=== PATIENT | female | born 1980 | race Caucasian/White ===

== ENCOUNTER 2019-07-16 08:05 | Outpatient (CLI) | payer BC, SELFPAY ==
--- NOTE | ~2019-07-16 | MM_ITS ---
EXAMINATION: MM screening estrella BI w concepcion HISTORY: Screening mammogram TECHNIQUE: Craniocaudal and mediolateral oblique 3-D tomosynthesis images were obtained and synthetic 2-D images were generated. CAD analysis was submitted and interpreted. COMPARISON: 02/13/2015 bilateral digital screening mammogram and limited right axillary ultrasound BREAST PARENCHYMAL COMPOSITION: There are scattered areas of fibroglandular density. FINDINGS: There is no evidence of suspicious mass, calcification, or architectural distortion to sugg est malignancy in either breast. There has been no suspicious interval change. IMPRESSION: 1. No mammographic evidence of malignancy. 2. Recommend routine screening mammography in one year. BI-RADS Category 1: Negative Reviewed, dictated and finalized at location A. RS AND CONTROLS TESTER
== END 2019-07-16 08:06 | disposition home or self-care (01) ==
LOC: CHSIMG 08:07
PROVIDERS: PCP Internal Medicine; Visit Provider Obstetrics & Gynecology
DX: Z12.31 Encounter for screening mammogram for malignant neoplasm of breast (principal)
CPT/HCPCS: 77063; 77067

== ENCOUNTER 2019-08-10 07:08 | Outpatient (CLI) | payer BC, SELFPAY ==
[2019-08-10 07:26] LABS: Basophils Absolute Auto 0.02 K/mm3 (0.00-0.10); Basophils Percent Auto 0.4 % (0.0-1.0); Eosinophils Absolute Auto 0.16 K/mm3 (0.02-0.50); Eosinophils Percent Auto 3.3 % (1.0-6.0); Hematocrit 43.7 % (35.0-49.0); Hemoglobin 14.9 g/dL (12.0-15.0); Immature Granulocyte Absolute 0.01 K/mm3 (0.00-0.00); Immature Granulocyte Percent A 0.2 % (0.0-0.0); Lymphocytes Percent Auto 20.3 % (18.0-42.0); Mean Corpuscular HGB Conc 34.1 g/dL (32.0-36.0); Mean Corpuscular Hemoglobin 32.4 pg (27.0-31.0); Mean Platelet Volume 9.3 fl (9.2-11.8); Monocytes Absolute Auto 0.51 K/mm3 (0.10-0.90); Monocytes Percent Auto 10.4 % (2.0-11.0); Neutrophils Absolute Auto 3.2 K/mm3 (1.7-7.2); Neutrophils Percent Auto 65.4 % (50.0-70.0); Platelet Count Result 274 K/mm3 (150-420); Red Cell Distribution Width 12.4 % (11.6-14.4); White Blood Count 4.9 K/mm3 (4.8-10.8)
[2019-08-10 08:33] LABS: Alanine Aminotransferase 27 U/L (14-59); Albumin Level 3.7 g/dL (3.4-5.0); Alkaline Phosphatase 60 U/L (46-116); Anion Gap 11.6 mmol/L (7-16); Aspartate Amino Transferase 15 U/L (15-37); Bilirubin,Total 0.4 mg/dL (0.00-1.00); Blood Urea Nitrogen 15 mg/dL (7-18); Calcium 8.8 mg/dL (8.5-10.1); Carbon Dioxide 26 mmol/L (21-32); Chloride 105 mmol/L (98-108); Cholesterol 188 mg/dL (0-200); Estimated Glomerular Filt Rate > 60; Glucose 102 mg/dL (70-99); HDL Direct 56 mg/dL (40-60); LDL Cholesterol Calculated 112 mg/dL (<130); Osmolality Calculated 286 mOsm/kg (285-295); Potassium 4.6 mmol/L (3.5-5.1); Sodium 138 mmol/L (136-145); Thyroid Stimulating Hormone 2.86 uIU/mL (0.36-3.74); Total Protein 7.2 g/dL (6.4-8.2); Triglycerides 99 mg/dL (0-150)
[2019-08-10 08:43] LABS: Folic Acid > 20.0 ng/mL (8.6->20); Vitamin B12 > 2000 pg/mL (193-986)
== END 2019-08-10 07:09 | disposition home or self-care (01) ==
LOC: CHSLAB 07:10
PROVIDERS: PCP Internal Medicine; Visit Provider Internal Medicine
DX: Z00.00 Encounter for general adult medical examination without abnormal findings (principal); R53.83 Other fatigue
CPT/HCPCS: 36415; 80053; 80061; 82607; 82746; 84443; 85025

== ENCOUNTER 2019-11-12 09:43 | Emergency (ER) | payer BC, SELFPAY ==
[2019-11-12 10:07] VITALS: BP 125/70; PULSE 101; RESP 18; TEMP 36.9; O2SAT 96
--- NOTE | 2019-11-12 11:09 | PC.NURSE ---
1100 erp in with patient, report to marlyn dodson
--- NOTE | 2019-11-12 11:15 | ED.NAVMDI ---
HPI - Nausea/Vomiting/Diarrhea General Chief complaint: Abdominal Pain Stated complaint: Diarrhea last couple days Vomiting bloating pains Source: patient Mode of arrival: ambulatory Limitations: no limitations History of Present Illness HPI Narrative: this 29-year-old with GERD developed diarrhea 6 days ago up until yesterday. It has improved today, 2 episodes so far. Five days ago she developed chills; 4 days ago she had a fever got as high as 102.6 ;2 and 3 days ago she had body aches which has resolved. Two days ago she developed epigastric bloating and abdominal pain. Yesterday it was rated 8/10, today it is 3/10. She lives with her brother, her boyfriend visits frequently. They have both been without symptoms. She spoke to her PCP Dr. Aguilar 4 days ago. She spoke to him again today he recommended obtaining a stool culture and be evaluated in the ED. She has never had the symptoms before. She had a COVID test done yesterday which is pending. She denies a sore throat cough shortness of breath Related Data Allergies Allergy/AdvReac Type Severity Reaction Status Date / Time hydrocodone Allergy Unknown Hives Verified 11/12/19 11:24 Review of Systems Constitutional: Constitutional: Reports no additional constitutional complaints Cardiovascular: Cardiovascular: Denies chest pain Respiratory: Respiratory: Denies dyspnea Gastrointestinal: Gastrointestinal: Reports no additional gastrointestinal complaints Genitourinary: Genitourinary: Reports no additional female genitourinary complaints [facility] Past Medical History Medical History (Updated 11/13/19 @ 09:00 by Ivan Royal MD) GERD (gastroesophageal reflux disease) Surgical History Surgical History (Updated 11/13/19 @ 09:00 by Ivan Royal MD) H/O: hysterectomy Family History Family History (Updated 09/09/16 @ 23:56 by DOCTOR UNKNOWN) Mother Patient's mother is in good health Father Family history of malignant neoplasm, Onset Age: 46 Patient's father is Grandparent Family history of malignant neoplasm of breast Social History Social History Smoking status: Former smoker Second hand tobacco smoke exposure: No Alcohol intake: current Exam Const: Nutritional Appearance: obese Orientation/consciousness: patient oriented x3 HENMT: Mouth: Yes Normal oral and palatal mucosa present Resp: Auscultation: clear to auscultation bilaterally Cardio: Rate: regular rate Rhythm: regular rhythm GI: GI Palp: Yes Soft to palpation, Yes Tenderness to palpation present (GI) (epigastric area), No Guarding due to palpation present (GI) and No Rigid due to palpation : General: Yes no CVA tenderness Skin: Rashes: no rashes Course Course Emergency Course: no change in patient's symptoms. Continues to have low-grade epigastric discomfort with palpation; unable to defecate in the emergency department. Patient will return with stool specimen. Imodium for diarrhea acetaminophen for pain. I explained her low potassium secondary to her diarrhea. She was given a script for KCL 20 mg b.i.d. for 7 days. Vital Signs Vital signs: Vital Signs Temperature 36.9 C 11/12/19 10:07 Pulse Rate 101 H 11/12/19 10:07 Respiratory Rate 18 11/12/19 10:07 Blood Pressure 125/70 11/12/19 10:07 Pulse Oximetry 96 11/12/19 10:07 Temperature 36.9 C 11/12/19 10:07 Pulse Rate 101 H 11/12/19 10:07 Respiratory Rate 16 11/12/19 12:57 Blood Pressure 125/70 11/12/19 10:07 Pulse Oximetry 96 11/12/19 10:07 MDM - Nausea/Vomiting/Diarrhea Differential Diagnosis Differential diagnosis: Likely food poisoning, gastroenteritis, clostridium difficile infection and other ( Infectious diarrhea, enteritis, pancreatitis, peptic ulcer disease,) Lab Data Attestation: I reviewed the patient's lab results. Result diagrams: 11/12/19 11:21 11/12/19 11:21 Labs: Lab Results 11/12/19
[2019-11-12 11:27] LABS: Hematocrit 39.7 % (35.0-49.0); Hemoglobin 13.6 g/dL (12.0-15.0); Mean Corpuscular HGB Conc 34.3 g/dL (32.0-36.0); Mean Corpuscular Hemoglobin 32.2 pg (27.0-31.0); Mean Corpuscular Volume 94.1 fL (78.0-102.0); Platelet Count Result 259 K/mm3 (150-420); Red Blood Count 4.22 M/mm3 (4.20-5.40); Red Cell Distribution Width 12.4 % (11.6-14.4); White Blood Count 3.8 K/mm3 (4.8-10.8)
[2019-11-12 11:43] LABS: Alanine Aminotransferase 40 U/L (14-59); Albumin Level 2.7 g/dL (3.4-5.0); Alkaline Phosphatase 68 U/L (46-116); Anion Gap 11.1 mmol/L (7-16); Aspartate Amino Transferase 19 U/L (15-37); Blood Urea Nitrogen 11 mg/dL (7-18); Calcium 8.1 mg/dL (8.5-10.1); Carbon Dioxide 28 mmol/L (21-32); Chloride 103 mmol/L (98-108); Estimated CRCL calculation 130 ml/min; Estimated Glomerular Filt Rate > 60; Glucose 119 mg/dL (70-99); Lipase 80 U/L (73-393); Osmolality Calculated 288 mOsm/kg (285-295); Potassium 3.1 mmol/L (3.5-5.1); Sodium 139 mmol/L (136-145); Total Protein 6.3 g/dL (6.4-8.2)
[2019-11-12 11:54] LABS: Bilirubin,Total 0.1 mg/dL (0.00-1.00)
[2019-11-12 12:57] VITALS: RESP 16
[2019-11-12 13:59] LABS: Occult Blood Negative (Negative)
== END 2019-11-12 12:59 | disposition home or self-care (01) ==
PROVIDERS: Emergency Provider Family Medicine; PCP Internal Medicine
DX: R19.7 Diarrhea, unspecified (principal); R10.13 Epigastric pain
CPT/HCPCS: 36415; 80053; 83690; 85027; 87324; 89055; 99283

== ENCOUNTER 2019-12-06 08:50 | Outpatient (CLI) | payer BC, SELFPAY ==
[2019-12-06 10:06] LABS: Alanine Aminotransferase 38 U/L (14-59); Albumin Level 3.7 g/dL (3.4-5.0); Alkaline Phosphatase 68 U/L (46-116); Anion Gap 13.4 mmol/L (7-16); Aspartate Amino Transferase 17 U/L (15-37); Bilirubin,Total 0.3 mg/dL (0.00-1.00); Blood Urea Nitrogen 19 mg/dL (7-18); Calcium 8.8 mg/dL (8.5-10.1); Carbon Dioxide 25 mmol/L (21-32); Chloride 105 mmol/L (98-108); Estimated Glomerular Filt Rate > 60; Glucose 99 mg/dL (70-99); Osmolality Calculated 290 mOsm/kg (285-295); Potassium 4.4 mmol/L (3.5-5.1); Sodium 139 mmol/L (136-145); Total Protein 7.1 g/dL (6.4-8.2)
== END 2019-12-06 08:51 | disposition home or self-care (01) ==
LOC: CHSLAB 08:51
PROVIDERS: PCP Internal Medicine; Visit Provider Internal Medicine
DX: E87.6 Hypokalemia (principal)
CPT/HCPCS: 36415; 80053

== ENCOUNTER 2020-06-19 15:38 | Outpatient (CLI) | payer BC, SELFPAY ==
[2020-06-20 18:46] LABS: SARS-CoV-2 RNA PCR Positive
== END 2020-06-19 15:39 | disposition home or self-care (01) ==
LOC: CHSLAB 15:40
PROVIDERS: PCP Internal Medicine; Visit Provider Internal Medicine
DX: U07.1 COVID-19 (principal)
CPT/HCPCS: C9803; U0003; U0005

== ENCOUNTER 2020-06-28 13:25 | Emergency (ER) | payer BC, SELFPAY ==
--- NOTE | ~2020-06-28 | CT_ITS ---
EXAMINATION: CTA chest PE protocol EXAM DATE: 06/28/2020 15:52 INDICATION: short of breath, recent COVID shortness of breath. TECHNIQUE: Spiral CTA of the chest (pulmonary arteries) was performed with 100 cc Omnipaque 350 intr avenous contrast injection. Images were acquired during the pulmonary arterial phase. Coronal maxi mum intensity projection 3D-reconstructions were created by the technologist on dedicated workstation . Axial, coronal and sagittal reformatted images were reviewed. The dose-length product (DLP) for t his examination was 796.43 mGy-cm. The exposure was tailored according to patient size (auto mA exp osure control), and iterative reconstruction (ASIR) was used as additional dose reduction technique. There is no prior study for comparison. FINDINGS: Pulmonary arteries are well opacified and without intraluminal filling defects. No thora cic aortic dissection. Moderate amount of bilateral ill-defined groundglass opacities with some post erior dependent confluence, appearance is consistent with COVID pneumonia. Trace pleural effusions. Tracheobronchial tree is patent. There is no mediastinal, hilar or axillary lymphadenopathy. The re is no pneumothorax. Heart normal in size. No evidence of coronary arterial calcification. Upp er abdomen is unremarkable. There is thoracic spondylosis without osteoblastic or osteolytic lesion s identified. IMPRESSION: Moderate amount of amount of airspace disease consistent with COVID pneumonia. Reviewed, dictated and finalized at location A. D GEOGRAPHY TEACHER
--- NOTE | ~2020-06-28 | XR_ITS ---
EXAMINATION: XR chest 2V EXAM DATE: 06/28/2020 14:52 INDICATION: Cough, short of breath. Post COVID 10 days ago. TECHNIQUE: Frontal and lateral projections of the chest obtained and reviewed. Comparison is made to prior examination from 06/06/2017. FINDINGS: Small to moderate amount of patchy ill-defined bilateral opacities, probably COVID pneumon ia correlating with history provided. No pneumothorax or pleural effusion. Cardiomediastinal silhouet te is normal. There are no osseous abnormalities identified. IMPRESSION: Small to moderate bilateral ill-defined COVID pneumonia. Reviewed, dictated and finalized at location A. CTOR BLOOD BANK
--- NOTE | 2020-06-28 14:06 | ED.SOB ---
HPI - SOB/Dyspnea General Chief Complaint: Upper Respiratory Infection Stated Complaint: sob weak Time Seen by Provider: 06/28/20 14:10 Source: patient Mode of arrival: ambulatory Limitations: no limitations History of Present Illness HPI Narrative: 40-year-old woman comes in today complaining of shortness of breath, fever, body aches, headache, fatigue, and nausea for the last 3-4 days. Patient states that she was diagnosed with COVID-19 on June 19. patient states she has had no vomiting, diarrhea, chest pain, or wheezing. She states that her cough is productive of clear sputum and denies hemoptysis. She denies history of cardiac or lung disease. She states that she is currently being treated for sinus infection in that frequently, after having had a sinus infection, she develops pneumonia. MD elicited complaint: shortness of breath and cough Pertinent past history: pneumonia Onset (ago): day(s) (3-4) Context: recent illness Timing: constant Severity: moderate Exacerbating factors: exertion Relieving factors: nothing Known history of: recurrent pneumonia and other ( COVID-19) Associated symptoms: chest pain, fever, cough and sputum production Treatment prior to arrival: none Related Data Home oxygen amount: none Allergies Allergy/AdvReac Type Severity Reaction Status Date / Time hydrocodone Allergy Unknown Hives Verified 06/19/20 13:12 Review of Systems Constitutional: Constitutional: Denies chills, Reports fatigue, Reports fever(s) and Reports weakness Eyes: Eyes: Denies change in vision and Denies photophobia ENT: Denies dysphagia, Reports nasal congestion and Denies sore throat Cardiovascular: Cardiovascular: Denies chest pain and Denies radiating jaw, neck or arm pain Respiratory: Respiratory: Reports chest congestion, Reports cough, Reports dyspnea and Denies wheezing Gastrointestinal: Gastrointestinal: Denies abdominal pain, Denies diarrhea, Reports nausea and Denies vomiting Genitourinary: Genitourinary: Denies nocturia and Denies dysuria Musculoskeletal: Musculoskeletal: Denies arthralgias and Denies joint swelling Integumentary/Breasts: Skin/Breast: Denies pruritus, Denies erythema and Denies rash Neurologic: Denies vertigo, Denies dizziness and Denies syncope Hematologic/Lymphatic: Hematologic/Lymphatic: Denies easy bleeding and Denies easy bruising Allergic/Immunologic: Allergic/Immunologic: Denies lip swelling and Denies throat swelling PMF Past Medical History Medical History Deviated septum Fibroids Foot fracture, left GERD (gastroesophageal reflux disease) Surgical History Surgical History H/O nasal septoplasty H/O: hysterectomy History of arthroscopy of both knees History of History of laparoscopy History of nasal surgery History of tonsillectomy Family History Family History Mother Patient's mother is in good health Father Family history of malignant neoplasm, Onset Age: 46 Patient's father is Grandparent Family history of malignant neoplasm of breast Social History Social History Smoking status: Former smoker Second hand tobacco smoke exposure: No Alcohol intake: current Exam Const: General: alert Nutritional Appearance: obese Orientation/consciousness: patient oriented x3 Other: mild acute distress. HENMT: Head: normal to inspection Ears: external ears normal, TM's normal bilaterally and EAC's normal General nose exam: Normal external nose present Throat: posterior oropharynx normal and uvula midline Eyes: Conjunctivae: conjunctivae normal Pupils: Equal, round and reactive pupils present EOM: EOMs intact bilaterally Resp: Effort & Inspection: normal respiratory effort and not labored Auscultati
[2020-06-28 14:10] VITALS: BP 119/82; PULSE 119; RESP 20; TEMP 37.2; O2SAT 94
--- NOTE | 2020-06-28 14:16 | ECG_ITS ---
Measurements Intervals [place] Rate: 109 P: 12 NC: 141 QRS: 69 QRSD: 91 T: 34 QT: 316 QTc: 426 Interpretive Statements SINUS TACHYCARDIA BASELINE WANDER- V1-V6 ABNORMAL ECG Electronically Signed On 06-29-2020 7:19:46 GUEST EXPERIENCE MANAGER by Brigido Harrison D.O.
[2020-06-28] MEDS: ALBUTEROL SULFATE NEB 2.5 MG/3 ML INH INHALATION (14:23)
[2020-06-28] MEDS: SODIUM CHLORIDE 0.9% IV 1,000 ML 999 ML IV CONT ×2 (14:30→15:53)
[2020-06-28 14:47] LABS: Hematocrit 44.4 % (35.0-49.0); Hemoglobin 14.7 g/dL (12.0-15.0); Mean Corpuscular HGB Conc 33.1 g/dL (32.0-36.0); Mean Corpuscular Hemoglobin 31.5 pg (27.0-31.0); Mean Corpuscular Volume 95.3 fL (78.0-102.0); Mean Platelet Volume 9.3 fl (9.2-11.8); Platelet Count Result 193 K/mm3 (150-420); Red Blood Count 4.66 M/mm3 (4.20-5.40); White Blood Count 3.5 K/mm3 (4.8-10.8)
[2020-06-28 15:03] LABS: INR 0.9; Prothrombin Time 10.5 Seconds (9.50-12.10)
[2020-06-28 15:04] LABS: Alanine Aminotransferase 45 U/L (14-59); Albumin Level 2.8 g/dL (3.4-5.0); Alkaline Phosphatase 53 U/L (46-116); Anion Gap 8 mmol/L (8-16); Aspartate Amino Transferase 28 U/L (15-37); Bilirubin,Total 0.3 mg/dL (0.00-1.00); Blood Urea Nitrogen 15 mg/dL (7-18); Calcium 8.1 mg/dL (8.5-10.1); Carbon Dioxide 29 mmol/L (21-32); Chloride 103 mmol/L (98-108); Estimated Glomerular Filt Rate > 60; Glucose 102 mg/dL (70-99); Osmolality Calculated 290 mOsm/kg (285-295); Potassium 3.5 mmol/L (3.5-5.1); Sodium 140 mmol/L (136-145); Total Protein 6.9 g/dL (6.4-8.2); Troponin I 6.7 ng/L (0.00-60.4)
[2020-06-28 15:06] LABS: Influenza Control Valid (Valid); Partial Thromboplastin Time 31.2 SEC (23.90-30.70)
[2020-06-28 15:07] LABS: D Dimer 0.66 mg/L (0.19-0.50); Neutrophils Percent Manual 76 % (46-73); Total Cells Counted 100
[2020-06-28 15:08] LABS: Band Neutrophils Percent 0 % (0-6); Eosinophils Absolute Manual 0.07 K/mm3 (0.02-0.5); Eosinophils Percent Manual 2 % (1-6); Lymphocytes Absolute Manual 0.63 K/mm3 (1.1-4.5); Lymphocytes Percent Manual 18 % (18-44); Monocytes Absolute Manual 0.14 K/mm3 (0.1-0.90); Monocytes Percent Manual 4 % (3-9); Neutrophils Absolute Manual 2.66 K/mm3 (1.7-7.2); Platelet Estimate Adequate (Adequate)
[2020-06-28 15:16] LABS: BNP < 5.0 pg/mL (0-100)
[2020-06-28 15:33] VITALS: BP 110/69; PULSE 105; O2SAT 94
[2020-06-28] MEDS: levoFLOXacin TAB 500 MG, levoFLOXacin TAB 250 MG 750 MG PO (16:32)
[2020-06-28 16:36] VITALS: PULSE 103; O2SAT 97
== END 2020-06-28 16:40 | disposition home or self-care (01) ==
PROVIDERS: Emergency Provider Emergency Medicine; PCP Internal Medicine
DX: J18.9 Pneumonia, unspecified organism (principal); Z87.891 Personal history of nicotine dependence
CPT/HCPCS: 36415; 71046; 71275; 80053; 83880; 84484; 85025; 85380; 85610; 85730; 87040; 87804; 93005; 96360; 96361; 99284; A9270; J7030; Q9967

== ENCOUNTER 2020-07-06 10:43 | Outpatient (CLI) | payer BC, SELFPAY ==
--- NOTE | ~2020-07-06 | XR_ITS ---
XR chest 2V DATE: 07/06/2020 11:21 INDICATION: Shortness of breath, chest heaviness. Positive Covid. TECHNIQUE: PA and lateral views COMPARISON: 06/24/2020 2 view chest FINDINGS: There are patchy infiltrates in the mid and lower lung zones, mildly increased since 021. Normal heart size. No pleural effusion or pneumothorax. IMPRESSION: Mildly increased patchy bilateral pulmonary infiltrates since 06/24/2020 Reviewed, dictated and finalized at location A. ESS INSTRUCTOR IMPRESSION: Mildly increased patchy bilateral pulmonary infiltrates since 2020
== END 2020-07-06 10:44 | disposition home or self-care (01) ==
PROVIDERS: PCP Internal Medicine; Visit Provider Internal Medicine
DX: B94.8 Sequelae of other specified infectious and parasitic diseases (principal)
CPT/HCPCS: 71046

== ENCOUNTER → 2021-01-30 00:52 | Outpatient (CLI) | payer BC, SELFPAY ==
[2021-01-30 22:45] LABS: SARS-CoV-2 RNA PCR Negative
== END ==
PROVIDERS: PCP Internal Medicine; Visit Provider Internal Medicine Gastroenterology
DX: Z01.812 Encounter for preprocedural laboratory examination (principal); Z20.822 Contact with and (suspected) exposure to COVID-19
CPT/HCPCS: C9803; U0003; U0005

== ENCOUNTER 2021-02-02 07:52 | Outpatient (CLI) | payer BC, SELFPAY ==
--- NOTE | ~2021-02-02 | MM_ITS ---
EXAMINATION: MM screening estrella BI w concepcion HISTORY: Screening TECHNIQUE: Craniocaudal and mediolateral oblique 3-D tomosynthesis images were obtained and synthetic 2-D images were generated. CAD analysis was submitted and interpreted. COMPARISON: Comparison to multiple prior studies sequentially, with oldest reviewed study dated 02/13. BREAST PARENCHYMAL COMPOSITION: There are scattered areas of fibroglandular density. FINDINGS: There is no evidence of suspicious mass, calcification, or architectural distortion to sugg est malignancy in either breast. There has been no suspicious interval change. IMPRESSION: 1. No mammographic evidence of malignancy. 2. Recommend routine screening mammography in one year. BI-RADS Category 1: Negative Reviewed, dictated and finalized at location A.
== END 2021-02-02 07:53 | disposition home or self-care (01) ==
LOC: CHSIMG 07:54
PROVIDERS: PCP Internal Medicine; Visit Provider Obstetrics & Gynecology
DX: Z12.31 Encounter for screening mammogram for malignant neoplasm of breast (principal)
CPT/HCPCS: 77063; 77067

== ENCOUNTER 2021-02-03 02:33 | Day surgery (SDC) | payer BC, SELFPAY ==
[2021-01-20 14:59] VITALS: BMI 46.9
[2021-02-03 08:10] VITALS: BP 136/98; PULSE 86; RESP 18; TEMP 36.1; O2SAT 97; BMI 46.5
[2021-02-03] MEDS: LACTATED RINGERS 1,000 ML 150 ML IV CONT (08:38)
--- NOTE | 2021-02-03 08:41 | WPDANESEPPF ---
Anes - Initial Pre Proc Eval Procedure: Operation Date: 02/03/21 09:00 Proposed Procedures p Screening Colonoscopy - Phil Joseph MD Date/Time: 02/03/21 08:41 Surgeon: Phil Joseph MD Pre Op Diagnosis: neoplasm screening Patient Data Age: 40 Gender: F Height: 1.7 m Weight: 134.8 kg Last Vital Signs Temp 97.0 F L 02/03/21 08:10 Pulse 86 02/03/21 08:10 Resp 18 02/03/21 08:10 BP 136/98 H 02/03/21 08:10 Pulse Ox 97 02/03/21 08:10 Allergies Allergy/AdvReac Type Severity Reaction Status Date / Time No Known Allergies Allergy Verified 02/03/21 08:18 Home Medications Medication Instructions Recorded Confirmed Type meclizine 25 mg tablet 25 mg PO TID PRN #20 tablet 06/26/20 01/20/21 Rx methylphenidate HCl 20 mg tablet 20 mg PO DAILY #30 tablet 08/07/20 01/20/21 Rx naproxen 500 mg tablet 500 mg PO BID PRN #180 tablet 09/02/20 01/20/21 Rx montelukast 10 mg tablet 10 mg PO QHS #30 tablet 11/05/20 01/20/21 Rx pantoprazole 40 mg tablet,delayed 40 mg PO QAM #90 tablet 11/05/20 01/20/21 Rx release sodium,potassium,mag sulfates See Rx Instructions .ROUTE 01/11/21 Rx [Suprep Bowel Prep Kit] .COMPLEX #1 ml Mucinex DM 1 tab-cap BYMOUTH DAILY PRN 01/20/21 02/03/21 History dextroamphetamine-amphetamine 25 mg PO DAILY 01/20/21 01/20/21 History [Adderall XR] tolterodine 4 mg PO DAILY 01/20/21 01/20/21 History albuterol sulfate 90 mcg/actuation 2 inh INHALATION Q4-6H #8.5 gm 02/01/21 02/03/21 Rx aerosol inhaler Patient hx anesthesia problems: none Family hx anesthesia problems: none PMFSH Past Medical History Medical History Deviated septum Fibroids Foot fracture, left GERD (gastroesophageal reflux disease) Surgical History Surgical History H/O nasal septoplasty H/O: hysterectomy History of arthroscopy of both knees History of History of laparoscopy History of nasal surgery History of tonsillectomy Family History Family History Mother Patient's mother is in good health Father Family history of malignant neoplasm, Onset Age: 46 Patient's father is Grandparent Family history of malignant neoplasm of breast Social History Social History Smoking packs per day: 1 Smoking cigarettes per day: 20.0 Years smoked: 20 Smoking pack-years: 20.00 Smoking status: Former smoker Tobacco type: cigarettes and e-cigarettes/vaping Second hand tobacco smoke exposure: No Additional smoking assessment comments: vapes currently Alcohol intake: current Drinks per week: 18 Living arrangements: with family Gender identity (if verbalized by the patient): Female Spiritual care concerns: No Anes - Eval Final PreProcedure Day of Procedure 02/03/21 08:41 Patient weight: morbidly obese Heart: regular rate and rhythm Lungs: clear to auscultation Airway: Mallampati scale class II Neurological: alert and oriented Last oral intake: >/= 8 hours ASA classification: III Emergent: no Anesthetic plan: proceed Anesthesia type and monitoring: general GIVS and standard monitoring Informed Consent: The patient's anesthetic plan and its attendant risks and benefits were discussed with the patient/family/POA. Questions were solicited and answers provided to the satisfaction of the patient/family/POA.
--- NOTE | 2021-02-03 09:13 | PM.HPGS ---
History of Present Illness History of Present Illness Consent: Risks, benefits, and alternatives have been discussed and questions answered. Patient agrees to proceed with procedure. Chief complaint: neoplasm screening Narrative: Chanda Carrion is a 40 year old female with last colonoscopy in her 20's, recently with more rectal bleeding. Review of Systems Constitutional: Constitutional: Denies headache(s) and Denies weakness Eyes: Eyes: Denies blurry vision ENT: Reports Normal hearing present, Denies headache(s) and Denies neck pain Cardiovascular: Cardiovascular: Denies chest pain and Denies dyspnea Respiratory: Respiratory: Denies dyspnea Gastrointestinal: Gastrointestinal: Reports no additional gastrointestinal complaints Genitourinary: Genitourinary: Denies dysuria Musculoskeletal: Musculoskeletal: Denies neck pain Integumentary/Breasts: Skin/Breast: Denies dry skin Neurologic: Reports Normal hearing present, Denies headache(s) and Denies weakness Psychiatric: Psychiatric: Denies anxiety Endocrine: Endocrine: Denies change in body appearance Hematologic/Lymphatic: Hematologic/Lymphatic: Denies easy bleeding Allergic/Immunologic: Allergic/Immunologic: Denies urticaria PMFSH Past Medical History Medical History (Updated 02/03/21 @ 09:14 by Phil Joseph MD) Deviated septum Fibroids Foot fracture, left GERD (gastroesophageal reflux disease) Rectal bleeding Surgical History Surgical History H/O nasal septoplasty H/O: hysterectomy History of arthroscopy of both knees History of History of laparoscopy History of nasal surgery History of tonsillectomy Family History Family History Mother Patient's mother is in good health Father Family history of malignant neoplasm, Onset Age: 46 Patient's father is Grandparent Family history of malignant neoplasm of breast Social History Social History Smoking packs per day: 1 Smoking cigarettes per day: 20.0 Years smoked: 20 Smoking pack-years: 20.00 Smoking status: Former smoker Tobacco type: cigarettes and e-cigarettes/vaping Second hand tobacco smoke exposure: No Additional smoking assessment comments: vapes currently Alcohol intake: current Drinks per week: 18 Living arrangements: with family Gender identity (if verbalized by the patient): Female Spiritual care concerns: No Meds Home Medications and Allergies Home Medications Medication Instructions Recorded Confirmed Type meclizine 25 mg tablet 25 mg PO TID PRN #20 tablet 06/26/20 01/20/21 Rx methylphenidate HCl 20 mg tablet 20 mg PO DAILY #30 tablet 08/07/20 01/20/21 Rx naproxen 500 mg tablet 500 mg PO BID PRN #180 tablet 09/02/20 01/20/21 Rx montelukast 10 mg tablet 10 mg PO QHS #30 tablet 11/05/20 01/20/21 Rx pantoprazole 40 mg tablet,delayed 40 mg PO QAM #90 tablet 11/05/20 01/20/21 Rx release sodium,potassium,mag sulfates See Rx Instructions .ROUTE 01/11/21 Rx [Suprep Bowel Prep Kit] .COMPLEX #1 ml Mucinex DM 1 tab-cap BYMOUTH DAILY PRN 01/20/21 02/03/21 History dextroamphetamine-amphetamine 25 mg PO DAILY 01/20/21 01/20/21 History [Adderall XR] tolterodine 4 mg PO DAILY 01/20/21 01/20/21 History albuterol sulfate 90 mcg/actuation 2 inh INHALATION Q4-6H #8.5 gm 02/01/21 02/03/21 Rx aerosol inhaler Allergies Allergy/AdvReac Type Severity Reaction Status Date / Time No Known Allergies Allergy Verified 02/03/21 08:18 Vital Signs Vital Signs - 24 hr 02/03/21 08:10 Temperature 97.0 F L Pulse Rate 86 Respiratory Rate 18 Blood Pressure 136/98 H Pulse Oximetry 97 Exam Const: General: comfortable and no acute distress HENMT: General nose exam: Normal nares present Eyes: General: appearance normal, both eyes and al
[2021-02-03 09:33] VITALS: BP 104/62; PULSE 78; RESP 18; O2SAT 97
[2021-02-03 09:43] VITALS: BP 103/69; PULSE 78; RESP 18; O2SAT 97
== END 2021-02-03 10:13 | disposition home or self-care (01) ==
PROVIDERS: PCP Internal Medicine; Visit Provider Internal Medicine Gastroenterology
PROC: 0DJD8ZZ Inspection of Lower Intestinal Tract, Via Natural or Artificial Opening Endoscopic (ICD-10-PCS; CPT 45378; principal; 2021-02-03 09:00)
DX: K92.1 Melena (principal); K64.8 Other hemorrhoids; K21.9 Gastro-esophageal reflux disease without esophagitis; Z79.51 Long term (current) use of inhaled steroids; Z87.891 Personal history of nicotine dependence; E66.01 Morbid (severe) obesity due to excess calories; Z68.42 Body mass index [BMI] 45.0-49.9, adult
CPT/HCPCS: 45378; C9803; J2704; J7120; U0003; U0005

== ENCOUNTER 2021-05-25 19:24 | Emergency (ER) | payer BC, SELFPAY ==
--- NOTE | ~2021-05-25 | CT_ITS ---
EXAMINATION: CT cervical spine wo con DATE: 05/25/2021 22:39 INDICATION: Right neck and shoulder pain TECHNIQUE: Computed tomography (CT) of the cervical spine was performed without intravenous contrast. Automated exposure control and iterative reconstruction technique were employed. The dose-length pro duct was 466.89 mGy-cm. COMPARISON: None FINDINGS: Slight reversal of the normal cervical lordosis. No spondylolisthesis or facet subluxation. Moderate osteoarthritis at the atlantoaxial articulation. Vertebral body heights are normal. No fracture. Mild disc height loss at C2-C3 through C5-C6. Suggestion of a 3 cm nodule at the lower pole of the left t hyroid. Cervical soft tissues are otherwise unremarkable. The following disc levels are specifically discussed: C2-C3: There is mild bilateral uncovertebral joint osteoarthritis. There is mild right and moderate left facet joint osteoarthritis. There is no neural foraminal stenosis. There is no central canal rigoberto nosis. C3-C4: There is mild left and moderate right uncovertebral joint osteoarthritis. There is mild left a nd moderate right facet joint osteoarthritis. There is mild right neural foraminal stenosis. There is no central canal stenosis. C4-C5: There is mild bilateral uncovertebral joint osteoarthritis. There is mild bilateral facet join t osteoarthritis. There is mild right neural foraminal stenosis. There is no central canal stenosis. C5-C6: There is mild bilateral uncovertebral joint osteoarthritis. There is mild bilateral facet join t osteoarthritis. There is no neural foraminal stenosis. There is no central canal stenosis. C6-C7: There is minimal bilateral uncovertebral joint osteoarthritis. There is mild bilateral facet j oint osteoarthritis. There is no neural foraminal stenosis. There is no central canal stenosis. C7-T1: There is no uncovertebral joint osteoarthritis. There is mild bilateral facet joint osteoarthr itis. There is no neural foraminal stenosis. There is no central canal stenosis. IMPRESSION: 1. Mild cervical spondylosis. No acute osseous abnormality. 2. Suggestion of a 3 cm left thyroid nodule. Recommend follow-up thyroid ultrasound for more definiti ve determination and risk stratification. Reviewed, dictated and finalized at [facility]. PAPER REPORTER IMPRESSION: 1. Mild cervical spondylosis. No acute osseous abnormality. 2. Suggestion of a 3 cm left thyroid nodule. Recommend follow-up thyroid ultras ound for more definitive determination and risk stratification.
[2021-05-25 21:44] VITALS: BP 140/94; PULSE 97; RESP 20; TEMP 36.8; O2SAT 97
[2021-05-25] MEDS: KETOROLAC (*BKC) 60 MG/2 ML VIAL IM (22:42)
--- NOTE | 2021-05-25 23:22 | ED.NECK ---
HPI - Neck Pain/Injury General Chief Complaint: Neck Pain/Injury Stated Complaint: pinched nerve Time Seen by Provider: 05/25/21 19:26 Source: patient and RN notes reviewed Mode of arrival: ambulatory Limitations: no limitations History of Present Illness complaint: neck pain Onset (ago): day(s) (1) Place: home Severity: moderate Severity scale (1-10): 7 Quality: dull and aching Duration: constant Relieving factors: remaining still Exacerbating factors: movement of neck Associated symptoms: none Treatments prior to arrival: none Related Data Home Medications Medication Instructions Recorded Confirmed Mucinex DM 1 tab-cap BYMOUTH DAILY PRN 01/20/21 06/02/21 dextroamphetamine-amphetamine 30 mg PO DAILY 01/20/21 06/02/21 [Adderall XR] tolterodine 4 mg PO DAILY 01/20/21 06/02/21 Allergies Allergy/AdvReac Type Severity Reaction Status Date / Time No Known Allergies Allergy Verified 05/27/21 09:24 Review of Systems Review of Systems: All systems reviewed & are unremarkable except as noted in HPI and below Musculoskeletal: Musculoskeletal: Reports arthralgias (neck pain) PMFSH Past Medical History Medical History Cervical radiculopathy Deviated septum Fibroids Foot fracture, left GERD (gastroesophageal reflux disease) Rectal bleeding Surgical History Surgical History H/O nasal septoplasty H/O: hysterectomy History of arthroscopy of both knees History of History of laparoscopy History of nasal surgery History of tonsillectomy Family History Family History Mother Patient's mother is in good health Father Family history of malignant neoplasm, Onset Age: 46 Patient's father is Grandparent Family history of malignant neoplasm of breast Social History Social History Smoking packs per day: 1 Smoking cigarettes per day: 20.0 Years smoked: 20 Smoking pack-years: 20.00 Smoking status: Former smoker Tobacco type: cigarettes and e-cigarettes/vaping Second hand tobacco smoke exposure: No Additional smoking assessment comments: vapes currently Alcohol intake: current Drinks per week: 18 Gender identity (if verbalized by the patient): Female Spiritual care concerns: No Exam Const: General: no acute distress and alert Nutritional Appearance: well nourished Orientation/consciousness: patient oriented x3 Limitations: no limitations HENMT: Head: normal to inspection Ears: external ears normal and TM's normal bilaterally General nose exam: Normal external nose present and Normal nares present Mouth: Yes lip normal and Yes moist mucous membranes Teeth and gingiva: dentition normal Eyes: Conjunctivae: conjunctivae normal Pupils: Equal, round and reactive pupils present EOM: EOMs intact bilaterally Neck: Neck: normal visual inspection and no lymphadenopathy Other: minimally tender paraspinal neck with no acute redness, swelling or deformity. Chest: Chest palpation & inspection: normal inspection of the chest Resp: Effort & Inspection: normal respiratory effort Auscultation: clear to auscultation bilaterally Cardio: Rate: regular rate Rhythm: regular rhythm GI: GI Palp: Yes Soft to palpation and No Tenderness to palpation present (GI) Percussion: Yes normal to percussion Auscultation: normal bowel sounds : General: Yes bladder normal to palpation and Yes no CVA tenderness Bimanual Exam- Adnexa, other: no tenderness Back/Spine/Pelvis: Back: no CVA tenderness Skin: General skin exam: normal color Neuro: General: patient oriented x3, moves all extremities, no meningeal signs and CN's II-XI intact bilaterally Extrem: General: normal to inspection and no pedal edema Psych: Mental Status: mental status grossly
[2021-05-25 23:49] VITALS: BP 145/99; PULSE 84; RESP 17; O2SAT 97
== END 2021-05-25 23:52 | disposition home or self-care (01) ==
PROVIDERS: Emergency Provider Emergency Medicine; PCP Internal Medicine
DX: M54.12 Radiculopathy, cervical region (principal)
CPT/HCPCS: 72125; 96372; 99283; 99284; A4565; J1885

== ENCOUNTER 2021-05-27 13:36 | Outpatient (CLI) | payer BC, SELFPAY ==
--- NOTE | ~2021-05-27 | US_ITS ---
EXAMINATION: US thyroid DATE: 05/27/2021 14:15 INDICATION: Thyroid nodule TECHNIQUE: Multiple ultrasound images of the thyroid were obtained. COMPARISON: None. FINDINGS: The right thyroid lobe measures 4.5 x 1.3 x 1.8 cm. The left thyroid lobe measures 6.4 x 2.4 x 2.4 c m. Thyroid isthmus measures 3 to 4 mm in thickness. 3.7 cm wider than tall solid isoechoic nodule wit h smooth margins and without echogenic foci (TI-RADS 3, mildly suspicious , FNA if >=2.5 cm, annual f ollowup is >1.5 cm). 4 mm solid hypoechoic nodule at the inferior right thyroid which is wider than t all with well-defined margins and without echogenic foci (TI-RADS 4, moderately suspicious , FNA if > =1.5 cm, annual followup is >=1 cm). IMPRESSION: 1. 3.7 cm TI-RADS 3 left thyroid nodule for which ultrasound-guided biopsy would be recommended. Reviewed, dictated and finalized at location H. ASSORTER IMPRESSION: 1. 3.7 cm TI-RADS 3 left thyroid nodule for which ultrasound-guided biopsy woul d be recommended.
== END 2021-05-27 13:37 | disposition home or self-care (01) ==
LOC: CHSIMG 13:37
PROVIDERS: PCP Internal Medicine; Visit Provider Physician Assistant
DX: E04.1 Nontoxic single thyroid nodule (principal)
CPT/HCPCS: 76536

== ENCOUNTER 2021-06-09 13:39 | Outpatient (CLI) | payer BC, SELFPAY ==
--- NOTE | ~2021-06-09 | US_ITS ---
EXAMINATION: US FNA w image guidance DATE: 06/09/2021 14:45 INDICATION: Indeterminate left thyroid nodule TECHNIQUE: The procedure and its benefits and risks were discussed with the patient. Risks specifically discusse d included bleeding and infection. The patient verbalized understanding of the risks and agreed to pr oceed. A time out was performed to verify patient information and procedure. The neck was prepared an d draped in the usual sterile manner. 3 mL 1% lidocaine were used for local anesthesia. Five passes were made with a 25G needle into the lesion. Appropriate needle location was documented with continu ous sonographic guidance. The specimens were passed to the mining engineering technologist in the room. A sterile bandage was applied. There were no immediate complications. FINDINGS: Grayscale ultrasound images demonstrate needles advanced into a left thyroid nodule for biopsy. IMPRESSION: 1. Successful ultrasound-guided fine needle aspiration of a left thyroid nodule. Reviewed, dictated and finalized at location A. APY AIDE IMPRESSION: 1. Successful ultrasound-guided fine needle aspiration of a left thyroid nodule .
== END 2021-06-09 13:40 | disposition home or self-care (01) ==
LOC: CHSIMG 13:40
PROVIDERS: PCP Internal Medicine; Visit Provider Internal Medicine
DX: E04.1 Nontoxic single thyroid nodule (principal)
CPT/HCPCS: 10005; 88173; 88305

== ENCOUNTER 2021-08-04 09:38 | Outpatient (CLI) | payer BC, SELFPAY ==
--- NOTE | 2021-08-04 11:00 | NEURO_ITS ---
Impression: # Complains of right upper extremity pain. # Normal nerve conduction study. # No Carpal Tunnel Syndrome or ulnar neuropathy. # Normal needle/EMG exam. # Clinical correlation recommended. Nerve Conduction Studies Anti Sensory Summary Table Stim Site NR Peak (ms) P-T Amp (?V) Site1 Site2 Delta-P (ms) Dist (cm) Dani (m/s) Right Median Anti Sensory (2-3nd Digit) Wrist 2.9 54.8 Wrist 2-3nd Digit 2.9 14.0 48 Wrist 3.0 63.2 Wrist 2-3nd Digit 2.9 14.0 48 Right Radial Anti Sensory (Base 1st Digit) Wrist 1.7 51.3 Wrist Base 1st Digit 1.7 0.0 Right Ulnar Anti Sensory (5th Digit) Wrist 2.3 72.3 Wrist 5th Digit 2.3 14.0 61 Motor Summary Table Stim Site NR Onset (ms) O-P Amp (mV) Site1 Site2 Delta-0 (ms) Dist (cm) Dani (m/s) Right Median Motor (Abd Poll Brev) Wrist 2.8 3.1 Elbow Wrist 4.7 27.0 57 Elbow 7.5 3.1 Right Ulnar Motor (Abd Dig Minimi) Wrist 2.3 8.1 A Elbow Wrist 4.6 28.0 61 A Elbow 6.9 7.0 F Wave Studies NR F-Lat (ms) L-R F-Lat (ms) Right Median (Mrkrs) (Abd Poll Brev) 24.99 Right Ulnar (Mrkrs) (Abd Dig Min) 25.70 EMG Side Muscle Nerve Root Ins Act Fibs Amp Dur Recrt Comment Right 1stDorInt Ulnar C8-T1 Nml Nml Nml Nml Nml Right Ext Indicis Radial (Post Int) C7-8 Nml Nml Nml Nml Nml Right Ext Digitorum Radial (Post Int) C7-8 Nml Nml Nml Nml Nml Right BrachioRad Radial C5-6 Nml Nml Nml Nml Nml Right PronatorTeres Median C6-7 Nml Nml Nml Nml Nml Right Abd Poll Brev Median C8-T1 Nml Nml Nml Nml Nml Right ABD Dig Min Ulnar C8-T1 Nml Nml Nml Nml Nml Right Abd Poll Long Radial (Post Int) C7-8 Nml Nml Nml Nml Nml MTDD
== END 2021-08-04 09:39 | disposition home or self-care (01) ==
LOC: ANHNEURO 09:41
PROVIDERS: PCP Internal Medicine; Visit Provider Physician Assistant
DX: M54.12 Radiculopathy, cervical region (principal)
CPT/HCPCS: 95886; 95909

== ENCOUNTER 2021-12-07 08:54 | Outpatient (CLI) | payer BC, SELFPAY ==
[2021-12-07 09:14] LABS: Basophils Absolute Auto 0.03 K/mm3 (0.00-0.10); Basophils Percent Auto 0.7 % (0.0-1.0); Eosinophils Absolute Auto 0.19 K/mm3 (0.02-0.50); Eosinophils Percent Auto 4.6 % (1.0-6.0); Hemoglobin 14.5 g/dL (12.0-15.0); Immature Granulocyte Absolute 0.01 K/mm3 (0.00-0.00); Immature Granulocyte Percent A 0.2 % (0.0-0.0); Lymphocytes Absolute Auto 0.92 K/mm3 (1.10-4.50); Lymphocytes Percent Auto 22.1 % (18.0-42.0); Mean Corpuscular HGB Conc 33.7 g/dL (32.0-36.0); Mean Corpuscular Hemoglobin 32.4 pg (27.0-31.0); Mean Corpuscular Volume 96.2 fL (78.0-102.0); Mean Platelet Volume 9.4 fl (9.2-11.8); Monocytes Absolute Auto 0.33 K/mm3 (0.10-0.90); Monocytes Percent Auto 7.9 % (2.0-11.0); Neutrophils Absolute Auto 2.7 K/mm3 (1.7-7.2); Neutrophils Percent Auto 64.5 % (50.0-70.0); Platelet Count Result 263 K/mm3 (150-420); Red Blood Count 4.47 M/mm3 (4.20-5.40); Red Cell Distribution Width 12.3 % (11.6-14.4); White Blood Count 4.2 K/mm3 (4.8-10.8)
[2021-12-07 09:56] LABS: Alanine Aminotransferase 26 U/L (14-59); Albumin Level 3.9 g/dL (3.4-5.0); Alkaline Phosphatase 57 U/L (46-116); Anion Gap 8 mmol/L (8-16); Aspartate Amino Transferase 14 U/L (15-37); Bilirubin,Total 0.6 mg/dL (0.00-1.00); Blood Urea Nitrogen 14 mg/dL (7-18); Calcium 8.6 mg/dL (8.5-10.1); Carbon Dioxide 27 mmol/L (21-32); Chloride 105 mmol/L (98-108); Cholesterol 202 mg/dL (0-200); Estimated Glomerular Filt Rate > 60; Folic Acid 16.1 ng/mL (8.6->20); Free T4 Free Thyroxine 0.87 ng/dL (0.76-1.46); Glucose 102 mg/dL (70-99); HDL Direct 61 mg/dL (40-60); LDL Cholesterol Calculated 126 mg/dL (<130); Osmolality Calculated 290 mOsm/kg (285-295); Sodium 140 mmol/L (136-145); Thyroid Stimulating Hormone 2.63 uIU/mL (0.36-3.74); Total Protein 7.2 g/dL (6.4-8.2); Triglycerides 75 mg/dL (0-150); Vitamin B12 351 pg/mL (193-986)
[2021-12-09 04:19] LABS: Thyroglobulin 71.1 ng/mL (2.8-40.9); Thyroglobulin Antibodies <1 IU/mL (<=1)
[2021-12-09 12:22] LABS: Vitamin D 25 Hydroxy 28 ng/mL (30-100)
== END 2021-12-07 08:55 | disposition home or self-care (01) ==
LOC: CHSLAB 08:56
PROVIDERS: PCP Internal Medicine; Visit Provider Internal Medicine
DX: Z00.00 Encounter for general adult medical examination without abnormal findings (principal); E55.9 Vitamin D deficiency, unspecified; E53.8 Deficiency of other specified B group vitamins; Z51.81 Encounter for therapeutic drug level monitoring; E04.1 Nontoxic single thyroid nodule; R53.83 Other fatigue
CPT/HCPCS: 36415; 80053; 80061; 82306; 82607; 82746; 84432; 84439; 84443; 85025; 86800

== ENCOUNTER 2021-12-29 08:52 | Outpatient (CLI) | payer BC, SELFPAY ==
[2022-01-02 04:29] LABS: Methylmalonic Acid 264 nmol/L (87-318)
== END 2021-12-29 08:53 | disposition home or self-care (01) ==
LOC: CHSLAB 08:54
PROVIDERS: PCP Internal Medicine; Visit Provider Internal Medicine Rheumatology
DX: E53.8 Deficiency of other specified B group vitamins (principal)
CPT/HCPCS: 36415; 83090; 83921

== ENCOUNTER 2022-01-15 08:15 | Outpatient (CLI) | payer BC, SELFPAY ==
--- NOTE | ~2022-01-15 | MR_ITS ---
EXAMINATION: MR cervical spine wo con DATE: 01/15/2022 10:21 INDICATION: Neck pain. TECHNIQUE: Magnetic resonance imaging (MRI) of the cervical spine was performed without intravenous c ontrast. Sequences included sagittal T2-weighted FSE, sagittal T2-weighted FS FSE, sagittal T1-weight ed FSE, axial MERGE, and axial T2-weighted FSE. COMPARISON: CT cervical spine 05/25/2021, thyroid ultrasound 05/27/2021 FINDINGS: There is 3 degrees dextrocurvature of cervicothoracic spine. There is mild kyphosis of cerv ical spine. Vertebral body heights are normal. Intervertebral disc heights are normal. The spinal cor d signal intensity is normal. There is a multinodular goiter. The following disc levels are specifica lly discussed: C2-C3: The disc does not extend beyond the endplate margin. There is no uncovertebral joint osteoarth ritis. There is mild right and moderate left facet joint osteoarthritis. There is no neural foraminal stenosis. There is no central canal stenosis. C3-C4: There is a central extrusion. There is moderate right and mild left uncovertebral joint osteoa rthritis. There is mild bilateral facet joint osteoarthritis. There is moderate right and mild left n eural foraminal stenosis. There is mild central canal stenosis. C4-C5: The disc is bulging. There is mild bilateral uncovertebral joint osteoarthritis. There is mild right and moderate left facet joint osteoarthritis. There is mild bilateral neural foraminal stenosi s. There is mild central canal stenosis. C5-C6: The disc is bulging. There is mild bilateral uncovertebral joint osteoarthritis. There is mild bilateral facet joint osteoarthritis. There is mild bilateral neural foraminal stenosis. There is mi ld central canal stenosis. C6-C7: The disc does not extend beyond the endplate margin. There is no uncovertebral joint osteoarth ritis. There is mild right and moderate left facet joint osteoarthritis. There is no neural foraminal stenosis. There is no central canal stenosis. C7-T1: The disc does not extend beyond the endplate margin. There is no uncovertebral joint osteoarth ritis. There is mild bilateral facet joint osteoarthritis. There is no neural foraminal stenosis. The re is no central canal stenosis. IMPRESSION: 1. Moderate right neural foraminal stenosis at C3-C4. Otherwise mild cervical spondylosis. Reviewed, dictated and finalized at location A. IMPRESSION: 1. Moderate right neural foraminal stenosis at C3-C4. Otherwise mild cervical s pondylosis.
--- NOTE | ~2022-01-15 | MR_ITS ---
EXAMINATION: MR lumbar spine wo con DATE: 01/15/2022 10:20 INDICATION: Low back pain. TECHNIQUE: Magnetic resonance imaging (MRI) of the lumbar spine was performed without intravenous con trast. Sequences included sagittal T2-weighted FSE, sagittal T2-weighted FS FSE, sagittal T1-weighted FSE, and axial T2-weighted FSE. COMPARISON: None FINDINGS: Bone alignment is normal. Vertebral body heights and intervertebral disc heights are normal . The distal spinal cord signal intensity is normal. The conus medullaris is at L1. The following dis c levels are specifically discussed: L1-L2: The disc does not extend beyond the endplate margin. There is mild bilateral facet joint osteo arthritis. There is no neural foraminal stenosis. There is no central canal stenosis. L2-L3: The disc does not extend beyond the endplate margin. There is mild bilateral facet joint osteo arthritis. There is no neural foraminal stenosis. There is no central canal stenosis. L3-L4: The disc is mildly bulging. There is moderate bilateral facet joint osteoarthritis. There is m ild bilateral neural foraminal stenosis. There is no central canal stenosis. L4-L5: The disc is bulging. There is moderate and mild left facet joint osteoarthritis. There is mild left neural foraminal stenosis. There is no central canal stenosis. L5-S1: The disc does not extend beyond the endplate margin. There is moderate bilateral facet joint o steoarthritis. There is no neural foraminal stenosis. There is no central canal stenosis. IMPRESSION: 1. Mild lumbar spondylosis. Reviewed, dictated and finalized at location A. IMPRESSION: 1. Mild lumbar spondylosis.
== END 2022-01-15 08:16 | disposition home or self-care (01) ==
LOC: CHSIMG 08:16
PROVIDERS: PCP Internal Medicine; Visit Provider Internal Medicine Rheumatology
DX: M54.2 Cervicalgia (principal); M54.50 Low back pain, unspecified
CPT/HCPCS: 72141; 72148

== ENCOUNTER 2022-02-05 08:45 | Emergency (ER) | payer BC, SELFPAY ==
--- NOTE | ~2022-02-05 | CT_ITS ---
EXAMINATION: CT cervical spine wo con DATE: 02/05/2022 09:50 INDICATION: Neck pain radiating to the right shoulder post fall TECHNIQUE: Computed tomography (CT) of the cervical spine was performed without intravenous contrast. Automated exposure control and iterative reconstruction technique were employed. The dose-length pro duct was 479.94 mGy-cm. COMPARISON: Cervical spine MR dated 01/15/2022 FINDINGS: Again seen is mild cervical kyphosis. No spondylolisthesis or facet subluxation. Vertebral body and d isc heights are normal. No fracture. Mild cervical spondylosis with multilevel cervical and facet ost eoarthritis resulting in moderate neural foraminal stenosis on the right at C3-C4 and minimal to mild neural foraminal stenosis at a few additional levels in the cervical and upper thoracic spine. Sever e prior MRI report for level by level analysis. Multinodular goiter with intrathoracic extension of a pproximately 3 cm nodule at the lower pole of the left thyroid. Cervical soft tissues are otherwise u nremarkable. Visualized airway and apices of lungs are clear. IMPRESSION: 1. Mild cervical spondylosis. No acute osseous abnormality. 2. Goiter. Reviewed, dictated and finalized at location A.
[2022-02-05 08:45] VITALS: BP 138/95; PULSE 116; RESP 20; TEMP 36.4; O2SAT 93
--- NOTE | 2022-02-05 09:03 | ED.BACK ---
HPI - Back Pain/Injury General Chief Complaint: Back Pain/Injury Stated Complaint: R sided back and arm pain, L hip pain Time Seen by Provider: 02/05/22 09:03 Source: patient History of Present Illness HPI Narrative: mild lumbar spondylosis, mild cervical spondylosis with L3/4 foraminal stenosis on the right side had a fall 5 days ago and presents to the ER with -- neck pain with radiation to the right arm. This has been chronic with recent worsening. She had an MRI last week which revealed mild cervical spondylosis with right 3/4 foraminal stenosis. -- Low back pain which is chronic -- left hip pain. The patient is ambulatory. MD elicited complaint: back pain and fall Pertinent past history: prior back pain Onset (ago): month(s) Timing: intermittent Severity: moderate Similar Symptoms Previously: Yes Quality: dull Location: lumbar spine ( Lumbar and cervical spine pain) Radiation: none ( radiates to the right upper arm.) Exacerbating factors: movement Relieving factors: immobilization Associated symptoms: denies other symptoms Related Data Home Medications Medication Instructions Recorded Confirmed Mucinex DM 1 tab-cap BYMOUTH DAILY PRN 01/20/21 02/05/22 Congestion Allergies Allergy/AdvReac Type Severity Reaction Status Date / Time No Known Allergies Allergy Verified 12/22/21 11:28 Review of Systems Review of Systems: All systems reviewed & are unremarkable except as noted in HPI and below Constitutional: Constitutional: Reports as per HPI and Reports no additional constitutional complaints Eyes: Eyes: Reports as per HPI and Reports no additional eye complaints ENT: Reports system reviewed and no additional complaints, except as documented and Reports as per HPI Cardiovascular: Cardiovascular: Reports as per HPI and Reports no additional cardiovascular complaints Respiratory: Respiratory: Reports as per HPI, Reports no additional respiratory complaints and Reports dyspnea Comments: She has chronic shortness of breath. Currently she does not have any cough, sputum production or pleuritic chest pain. She is due to get a sleep study. Gastrointestinal: Gastrointestinal: Reports as per HPI and Reports no additional gastrointestinal complaints Genitourinary: Genitourinary: Reports no additional female genitourinary complaints and Reports as per HPI Musculoskeletal: Musculoskeletal: Reports no additional musculoskeletal complaints and Reports as per HPI Integumentary/Breasts: Skin/Breast: Reports system reviewed and no additional complaints, except as docu and Reports as per HPI Neurologic: Reports system reviewed and no additional complaints, except as documented and Reports as per HPI Psychiatric: Psychiatric: Reports no additional psychiatric complaints and Reports as per HPI Endocrine: Endocrine: Reports no additional endocrine complaints and Reports as per HPI Hematologic/Lymphatic: Hematologic/Lymphatic: Reports no additional hematologic/lymphatic complaints and Reports as per HPI Allergic/Immunologic: Allergic/Immunologic: Reports no additional allergic/immunologic complaints and Reports as per HPI PMFSH Past Medical History Medical History Anxiety Cervical radiculopathy Deviated septum Fibroids Foot fracture, left GERD (gastroesophageal reflux disease) Rectal bleeding Sleep apnea Vaginal cuff dehiscence 02/27/12 repair of dehiscence Surgical History Surgical History H/O nasal septoplasty 01/03/15 History of arthroscopy of both knees 03/05/08 double knee surgery History of 06/25/03 primary c/s--macrosomia/failed induction History of colonoscopy 11/30/01 History of hysteroscopy 06/21/06 hscope d&c 10/04/10 hscope d&c/iud removal History of laparoscopy 06/19/00 dx lscope--adhesiolysis 01/23/02 dx lscope--extensive adhesiolysis History of nasal surger
[2022-02-05] MEDS: KETOROLAC 30 MG/ML VIAL (*BKC) IM (09:38)
[2022-02-05 10:59] VITALS: BP 141/98; PULSE 86; RESP 20; TEMP 36.6; O2SAT 94
== END 2022-02-05 11:02 | disposition home or self-care (01) ==
PROVIDERS: Emergency Provider Internal Medicine Critical Care Medicine; PCP Internal Medicine
DX: M54.2 Cervicalgia (principal); M54.12 Radiculopathy, cervical region; M54.50 Low back pain, unspecified
CPT/HCPCS: 72125; 96372; 99284; J1885

== ENCOUNTER 2022-03-01 11:16 | Outpatient (CLI) | payer BC, SELFPAY ==
[2022-03-04 05:16] LABS: Thyroid Peroxidase Antibodies 49 IU/mL (<9)
[2022-03-04 11:37] LABS: Complement C3 159 mg/dL (83-193)
[2022-03-04 18:49] LABS: Complement Total CH50 >60 U/mL (31-60)
[2022-03-05 10:48] LABS: Immunoglobulin A 222 mg/dL (47-310); Immunoglobulin G 1089 mg/dL (600-1640); Immunoglobulin M 144 mg/dL (50-300)
[2022-03-06 16:00] LABS: Total Triiodothyronine (T3) 84.8 ng/dL (76-181)
== END 2022-03-01 11:17 | disposition home or self-care (01) ==
LOC: CHSLAB 11:18
PROVIDERS: PCP Internal Medicine; Visit Provider Internal Medicine Rheumatology
DX: Z86.19 Personal history of other infectious and parasitic diseases (principal); E04.1 Nontoxic single thyroid nodule
CPT/HCPCS: 36415; 82784; 84480; 86160; 86162; 86376

== ENCOUNTER 2022-03-03 07:19 | Outpatient (CLI) | payer BC, SELFPAY ==
--- NOTE | ~2022-03-03 | MM_ITS ---
EXAMINATION: MM screening estrella BI w concepcion HISTORY: Screening mammogram TECHNIQUE: Craniocaudal and mediolateral oblique 3-D tomosynthesis images were obtained and synthetic 2-D images were generated. CAD analysis was submitted and interpreted. COMPARISON: The visualized , , 02/13/2015 bilateral screening mammogram examinations BREAST PARENCHYMAL COMPOSITION: There are scattered areas of fibroglandular density. FINDINGS: There is no evidence of suspicious mass, calcification, or architectural distortion to sugg est malignancy in either breast. There has been no suspicious interval change. IMPRESSION: 1. No mammographic evidence of malignancy. 2. Recommend routine screening mammography in one year. BI-RADS Category 1: Negative Reviewed, dictated and finalized at location A.
== END 2022-03-03 07:20 | disposition home or self-care (01) ==
LOC: CHSIMG 07:20
PROVIDERS: PCP Internal Medicine; Visit Provider Obstetrics & Gynecology
DX: Z12.31 Encounter for screening mammogram for malignant neoplasm of breast (principal)
CPT/HCPCS: 77063; 77067

== ENCOUNTER 2022-03-12 08:33 | Outpatient (CLI) | payer BC, SELFPAY ==
[2022-03-12 09:27] LABS: Hemoglobin A1C 5.2 % (<5.7)
[2022-03-12 09:37] LABS: Cholesterol 211 mg/dL (0-200); Free T3 2.58 pg/mL (2.18-3.98); Free T4 Free Thyroxine 0.94 ng/dL (0.76-1.46); HDL Direct 61 mg/dL (40-60); LDL Cholesterol Calculated 132 mg/dL (<130); Thyroid Stimulating Hormone 2.43 uIU/mL (0.36-3.74); Triglycerides 89 mg/dL (0-150)
[2022-03-15 03:40] LABS: DHEA-Sulfate 75 mcg/dL (19-231); Insulin Level Total 13.1 uIU/mL (<=19.6); Thyroid Peroxidase Antibodies 37 IU/mL (<9)
[2022-03-15 12:07] LABS: Testosterone Free 6.6 pg/mL (0.1-6.4); Testosterone Total 49 ng/dL (2-45)
[2022-03-15 15:20] LABS: FSH 10.3 mIU/mL (***); LH 12.9 mIU/mL (***)
[2022-03-17 21:54] LABS: Estradiol, Ultrasensitive 104 pg/mL
[2022-03-18 09:55] LABS: Gliadin AB, IgG <1.0; TTG IGA AB <1.0
== END 2022-03-12 08:34 | disposition home or self-care (01) ==
LOC: CHSLAB 08:36
PROVIDERS: PCP Internal Medicine; Visit Provider Internal Medicine Endocrinology, Diabetes & Metabolism
DX: E06.3 Autoimmune thyroiditis (principal); R14.0 Abdominal distension (gaseous); R73.01 Impaired fasting glucose; N95.1 Menopausal and female climacteric states
CPT/HCPCS: 36415; 80061; 82627; 82653; 82670; 83001; 83002; 83036; 83516; 83525; 84144; 84402; 84403; 84439; 84443; 84481; 86003; 86376

== ENCOUNTER 2022-03-17 08:17 | Outpatient (CLI) | payer BC, SELFPAY ==
--- NOTE | ~2022-03-17 | US_ITS ---
EXAMINATION: US thyroid DATE: 03/17/2022 08:55 INDICATION: Nontoxic goiter. TECHNIQUE: Multiple ultrasound images of the thyroid were obtained. COMPARISON: Ultrasound 05/27/2021 FINDINGS: The right thyroid lobe measures 4.8 x 1.4 x 1.4 cm. The left thyroid lobe measures 5.8 x 1.9 x 2.2 c m. In the right thyroid lobe, there is a 6 mm solid, hypoechoic, wider than tall nodule with smooth margin without echogenic foci (TI-RADS TR4). In the left thyroid lobe, there is a 3.8 cm solid, hypoe choic, wider than tall nodule with smooth margin without echogenic foci (TR4), stable from 06/09/2021 w hen biopsy was consistent with benign follicular nodule. IMPRESSION: 1. Thyroid nodules, likely not clinically significant. No follow-up is needed. Reviewed, dictated and finalized at location A.
== END 2022-03-17 08:18 | disposition home or self-care (01) ==
LOC: CHSIMG 08:19
PROVIDERS: PCP Internal Medicine; Visit Provider Internal Medicine Endocrinology, Diabetes & Metabolism
DX: E04.9 Nontoxic goiter, unspecified (principal)
CPT/HCPCS: 76536

== ENCOUNTER 2022-04-14 07:16 | Outpatient (CLI) | payer BC, SELFPAY ==
[2022-04-14 08:44] LABS: Alanine Aminotransferase 25 U/L (14-59); Albumin Level 3.5 g/dL (3.4-5.0); Alkaline Phosphatase 52 U/L (46-116); Anion Gap 9 mmol/L (8-16); Aspartate Amino Transferase 12 U/L (15-37); Bilirubin,Total 0.4 mg/dL (0.00-1.00); Blood Urea Nitrogen 9 mg/dL (7-18); Calcium 8.5 mg/dL (8.5-10.1); Carbon Dioxide 24 mmol/L (21-32); Chloride 108 mmol/L (98-108); Estimated Glomerular Filt Rate > 60; Folic Acid 12.8 ng/mL (8.6->20); Glucose 98 mg/dL (70-99); Osmolality Calculated 290 mOsm/kg (285-295); Potassium 4.2 mmol/L (3.5-5.1); Sodium 141 mmol/L (136-145); Total Protein 6.4 g/dL (6.4-8.2); Vitamin B12 1934 pg/mL (193-986)
[2022-04-16 21:49] LABS: Vitamin D 25 Hydroxy 36 ng/mL (30-100)
== END 2022-04-14 07:17 | disposition home or self-care (01) ==
LOC: CHSLAB 07:19
PROVIDERS: PCP Internal Medicine; Visit Provider Internal Medicine Endocrinology, Diabetes & Metabolism
DX: E06.3 Autoimmune thyroiditis (principal); E55.9 Vitamin D deficiency, unspecified
CPT/HCPCS: 36415; 80053; 82306; 82607; 82746

== ENCOUNTER 2022-05-13 07:03 | Outpatient (CLI) | payer BC, SELFPAY ==
[2022-05-13 07:45] LABS: Basophils Absolute Auto 0.03 K/mm3 (0.00-0.10); Basophils Percent Auto 0.5 % (0.0-1.0); Eosinophils Absolute Auto 0.18 K/mm3 (0.02-0.50); Eosinophils Percent Auto 3.2 % (1.0-6.0); Hematocrit 42.7 % (35.0-49.0); Hemoglobin 14.7 g/dL (12.0-15.0); Immature Granulocyte Absolute 0.02 K/mm3 (0.00-0.00); Immature Granulocyte Percent A 0.4 % (0.0-0.0); Lymphocytes Percent Auto 22.8 % (18.0-42.0); Mean Corpuscular HGB Conc 34.4 g/dL (32.0-36.0); Mean Corpuscular Hemoglobin 32.7 pg (27.0-31.0); Mean Corpuscular Volume 95.1 fL (78.0-102.0); Mean Platelet Volume 10.1 fl (9.2-11.8); Monocytes Absolute Auto 0.57 K/mm3 (0.10-0.90); Neutrophils Absolute Auto 3.6 K/mm3 (1.7-7.2); Neutrophils Percent Auto 63.1 % (50.0-70.0); Platelet Count Result 239 K/mm3 (150-420); Red Blood Count 4.49 M/mm3 (4.20-5.40); Red Cell Distribution Width 12.1 % (11.6-14.4); White Blood Count 5.7 K/mm3 (4.8-10.8)
[2022-05-13 08:06] LABS: Hemoglobin A1C 5.4 % (<5.7)
[2022-05-13 08:32] LABS: Rheumatoid Factor Screen Negative (Negative)
[2022-05-13 08:38] LABS: Alanine Aminotransferase 38 U/L (14-59); Albumin Level 3.5 g/dL (3.4-5.0); Alkaline Phosphatase 54 U/L (46-116); Anion Gap 9 mmol/L (8-16); Aspartate Amino Transferase 14 U/L (15-37); Bilirubin,Total 0.2 mg/dL (0.00-1.00); Blood Urea Nitrogen 15 mg/dL (7-18); Calcium 8.8 mg/dL (8.5-10.1); Carbon Dioxide 26 mmol/L (21-32); Chloride 108 mmol/L (98-108); Cholesterol 186 mg/dL (0-200); Estimated Glomerular Filt Rate > 60; Ferritin 53 ng/mL (8-252); Folic Acid 9.3 ng/mL (8.6->20); Free T3 2.07 pg/mL (2.18-3.98); Glucose 99 mg/dL (70-99); HDL Direct 57 mg/dL (40-60); Iron 40 ug/dL (50-170); LDL Cholesterol Calculated 110 mg/dL (<130); Osmolality Calculated 296 mOsm/kg (285-295); Percent Iron Saturation 13 % (12-57); Potassium 4.2 mmol/L (3.5-5.1); Sodium 143 mmol/L (136-145); Thyroid Stimulating Hormone 0.65 uIU/mL (0.36-3.74); Total Protein 6.7 g/dL (6.4-8.2); Triglycerides 95 mg/dL (0-150); Vitamin B12 1551 pg/mL (193-986)
[2022-05-17 12:24] LABS: Insulin Level Total 9.2 uIU/mL (<=19.6)
[2022-05-18 12:10] LABS: Anti Cyclic Citrullinated Pept <16 Units (<20)
[2022-05-18 16:28] LABS: Vitamin D 25 Hydroxy 37 ng/mL (30-100)
[2022-05-19 15:18] LABS: Anti Nuclear Antibody Pattern Nuclear, Speckled; Anti Nuclear Antibody Titer 1:40 (Negative)
== END 2022-05-13 07:04 | disposition home or self-care (01) ==
LOC: CHSLAB 07:06
PROVIDERS: PCP Internal Medicine; Visit Provider Internal Medicine Endocrinology, Diabetes & Metabolism
DX: E04.1 Nontoxic single thyroid nodule (principal); R53.83 Other fatigue; R73.01 Impaired fasting glucose; E55.9 Vitamin D deficiency, unspecified
CPT/HCPCS: 36415; 80053; 80061; 82306; 82542; 82607; 82728; 82746; 83036; 83525; 83540; 83550; 84439; 84443; 84481; 85025; 86038; 86039; 86200; 86430

== ENCOUNTER 2022-05-14 07:25 | Outpatient (CLI) | payer BC, SELFPAY | END 2022-05-14 07:26 | disposition home or self-care (01) | LOC: CHSLAB 07:27 | PROVIDERS: PCP Internal Medicine; Visit Provider Internal Medicine Endocrinology, Diabetes & Metabolism | DX: E04.1 Nontoxic single thyroid nodule (principal) | CPT/HCPCS: 36415; 82542 ==

== ENCOUNTER 2022-08-08 06:59 | Outpatient (CLI) | payer BC, SELFPAY ==
[2022-08-08 07:22] LABS: Hemoglobin A1C 5.2 % (<5.7)
[2022-08-08 08:06] LABS: Alanine Aminotransferase 40 U/L (14-59); Albumin Level 3.9 g/dL (3.4-5.0); Alkaline Phosphatase 52 U/L (46-116); Anion Gap 9 mmol/L (8-16); Aspartate Amino Transferase 15 U/L (15-37); Bilirubin,Total 0.5 mg/dL (0.00-1.00); Blood Urea Nitrogen 18 mg/dL (7-18); Calcium 8.7 mg/dL (8.5-10.1); Carbon Dioxide 27 mmol/L (21-32); Chloride 106 mmol/L (98-108); Estimated Glomerular Filt Rate > 60; Folic Acid 12.3 ng/mL (8.6->20); Free T3 2.14 pg/mL (2.18-3.98); Free T4 Free Thyroxine 1.24 ng/dL (0.76-1.46); Glucose 88 mg/dL (70-99); Osmolality Calculated 294 mOsm/kg (285-295); Potassium 4.1 mmol/L (3.5-5.1); Sodium 142 mmol/L (136-145); Thyroid Stimulating Hormone 0.36 uIU/mL (0.36-3.74); Total Protein 6.8 g/dL (6.4-8.2)
[2022-08-08 08:07] LABS: Vitamin B12 > 2000 pg/mL (193-986)
[2022-08-12 03:42] LABS: Insulin Level Total 4.4 uIU/mL (<=19.6); Thyroid Peroxidase Antibodies 124 IU/mL (<9)
== END 2022-08-08 07:00 | disposition home or self-care (01) ==
PROVIDERS: PCP Internal Medicine; Visit Provider Internal Medicine Endocrinology, Diabetes & Metabolism
DX: E03.9 Hypothyroidism, unspecified (principal); R73.01 Impaired fasting glucose
CPT/HCPCS: 36415; 80053; 82607; 82746; 83036; 83525; 84439; 84443; 84481; 86376

== ENCOUNTER 2022-09-22 09:55 | Outpatient (CLI) | payer BC, SELFPAY ==
[2022-09-22 10:42] LABS: SARS-CoV-2 RNA PCR Negative (Negative)
[2022-09-22 10:43] LABS: Strep Group A RT-PCR NOT DETECTED (Negative)
== END 2022-09-22 09:56 | disposition home or self-care (01) ==
LOC: CHSLAB 09:57
PROVIDERS: PCP Internal Medicine; Visit Provider Physician Assistant
DX: R09.81 Nasal congestion (principal); J02.9 Acute pharyngitis, unspecified
CPT/HCPCS: 87651; U0003; U0005

== ENCOUNTER 2022-12-21 07:02 | Outpatient (CLI) | payer BC, SELFPAY ==
[2022-12-21 08:31] LABS: Alanine Aminotransferase 34 U/L (14-59); Albumin Level 3.5 g/dL (3.4-5.0); Alkaline Phosphatase 57 U/L (46-116); Anion Gap 9 mmol/L (8-16); Aspartate Amino Transferase 13 U/L (15-37); Bilirubin,Total 0.3 mg/dL (0.00-1.00); Blood Urea Nitrogen 13 mg/dL (7-18); Calcium 8.4 mg/dL (8.5-10.1); Carbon Dioxide 26 mmol/L (21-32); Chloride 105 mmol/L (98-108); Estimated Glomerular Filt Rate > 60; Free T3 2.71 pg/mL (2.18-3.98); Free T4 Free Thyroxine 0.83 ng/dL (0.76-1.46); Glucose 104 mg/dL (70-99); Osmolality Calculated 290 mOsm/kg (285-295); Potassium 4.3 mmol/L (3.5-5.1); Sodium 140 mmol/L (136-145); Thyroid Stimulating Hormone 0.07 uIU/mL (0.36-3.74); Total Protein 6.4 g/dL (6.4-8.2)
[2022-12-24 08:14] LABS: DHEA-Sulfate 57 mcg/dL (19-231); Thyroid Peroxidase Antibodies 598 IU/mL (<9)
[2022-12-26 13:02] LABS: Testosterone Free 2.9 pg/mL (0.1-6.4); Testosterone Total 21 ng/dL (2-45)
[2022-12-28 08:56] LABS: Insulin Level Total 15.4 uIU/mL (<=19.6)
== END 2022-12-21 07:03 | disposition home or self-care (01) ==
LOC: CHSLAB 07:04
PROVIDERS: PCP Internal Medicine; Visit Provider Internal Medicine Endocrinology, Diabetes & Metabolism
DX: E03.9 Hypothyroidism, unspecified (principal); E28.2 Polycystic ovarian syndrome
CPT/HCPCS: 36415; 80053; 82627; 83525; 84402; 84403; 84439; 84443; 84481; 86376

== ENCOUNTER 2023-03-03 07:02 | Outpatient (CLI) | payer BC, SELFPAY ==
[2023-03-03 07:23] LABS: Basophils Absolute Auto 0.04 K/mm3 (0.00-0.10); Basophils Percent Auto 0.8 % (0.0-1.0); Eosinophils Absolute Auto 0.33 K/mm3 (0.02-0.50); Eosinophils Percent Auto 6.3 % (1.0-6.0); Hematocrit 41.4 % (35.0-49.0); Hemoglobin 14.1 g/dL (12.0-15.0); Immature Granulocyte Absolute 0.01 K/mm3 (0.00-0.00); Immature Granulocyte Percent A 0.2 % (0.0-0.0); Lymphocytes Absolute Auto 1.14 K/mm3 (1.10-4.50); Lymphocytes Percent Auto 21.9 % (18.0-42.0); Mean Corpuscular HGB Conc 34.1 g/dL (32.0-36.0); Mean Corpuscular Hemoglobin 31.8 pg (27.0-31.0); Mean Corpuscular Volume 93.5 fL (78.0-102.0); Mean Platelet Volume 9.9 fl (9.2-11.8); Monocytes Absolute Auto 0.47 K/mm3 (0.10-0.90); Neutrophils Absolute Auto 3.2 K/mm3 (1.7-7.2); Neutrophils Percent Auto 61.8 % (50.0-70.0); Nucleated Red Blood Cells Absolute Auto 0.04 K/mm3 (0.00-0.00); Nucleated Red Blood Cells Perc 0.8 % (0-0.0); Platelet Count Result 236 K/mm3 (150-420); Red Blood Count 4.43 M/mm3 (4.20-5.40); White Blood Count 5.2 K/mm3 (4.8-10.8)
[2023-03-03 08:02] LABS: Free T4 Free Thyroxine 0.96 ng/dL (0.76-1.46); Thyroid Stimulating Hormone 0.01 uIU/mL (0.36-3.74)
[2023-03-03 09:45] LABS: Cholesterol 183 mg/dL (0-200); HDL Direct 59 mg/dL (40-60); LDL Cholesterol Calculated 110 mg/dL (<130); Triglycerides 68 mg/dL (0-150)
[2023-03-07 13:23] LABS: Adrenocorticotropic Hormone 20 pg/mL (6-50)
[2023-03-09 14:17] LABS: Z Score Female -0.2 SD (-2.0 - +2.0)
[2023-03-11 07:56] LABS: Cortisol Random 15.1 mcg/dL (***)
[2023-03-11 07:58] LABS: FSH 18.5 mIU/mL (***); LH 29.1 mIU/mL (***); Prolactin 16.3 ng/mL (***)
== END 2023-03-03 07:03 | disposition home or self-care (01) ==
LOC: CHSLAB 07:04
PROVIDERS: PCP Internal Medicine; Visit Provider Internal Medicine
DX: E03.9 Hypothyroidism, unspecified (principal); R74.8 Abnormal levels of other serum enzymes; R53.83 Other fatigue
CPT/HCPCS: 36415; 80061; 82024; 82533; 83001; 83002; 83520; 84146; 84305; 84439; 84443; 85025

== ENCOUNTER 2023-03-17 07:30 | Outpatient (CLI) | payer BC, SELFPAY ==
--- NOTE | ~2023-03-17 | US_ITS ---
EXAMINATION: US thyroid DATE: 03/17/2023 07:52 INDICATION: Nontoxic single thyroid nodule. TECHNIQUE: Multiple ultrasound images of the thyroid were obtained. COMPARISON: Ultrasound 03/17/2022, 06/09/21 FINDINGS: The right thyroid lobe measures 3.5 x 1.2 x 1.4 cm. The left thyroid lobe measures 4.6 x 2.1 x 2.2 c m. In the right thyroid lobe, there is a 13 mm solid, hypoechoic, wider than tall nodule with lobula alexis margin without echogenic foci (TR4), enlarged from 03/17/22. In the left thyroid lobe, there is a 3.3 cm solid, isoechoic, wider than tall nodule with smooth margin without echogenic foci (TR3), sta ble from 06/09/21 when biopsy was benign. IMPRESSION: 1. Thyroid nodules. Thyroid ultrasound is recommended in one year. Reviewed, dictated and finalized at location A.
== END 2023-03-17 07:31 | disposition home or self-care (01) ==
LOC: CHSIMG 07:31
PROVIDERS: PCP Internal Medicine; Visit Provider Internal Medicine
DX: E04.2 Nontoxic multinodular goiter (principal)
CPT/HCPCS: 76536

== ENCOUNTER 2023-06-14 10:55 | Outpatient (CLI) | payer BC, SELFPAY ==
[2023-06-14 11:19] LABS: Basophils Absolute Auto 0.04 K/mm3 (0.00-0.10); Basophils Percent Auto 0.9 % (0.0-1.0); Eosinophils Absolute Auto 0.22 K/mm3 (0.02-0.50); Eosinophils Percent Auto 4.7 % (1.0-6.0); Hematocrit 44.5 % (35.0-49.0); Hemoglobin 14.8 g/dL (12.0-15.0); Immature Granulocyte Absolute 0.01 K/mm3 (0.00-0.00); Immature Granulocyte Percent A 0.2 % (0.0-0.0); Lymphocytes Absolute Auto 1.05 K/mm3 (1.10-4.50); Lymphocytes Percent Auto 22.5 % (18.0-42.0); Mean Corpuscular HGB Conc 33.3 g/dL (32.0-36.0); Mean Corpuscular Hemoglobin 31.5 pg (27.0-31.0); Mean Corpuscular Volume 94.7 fL (78.0-102.0); Mean Platelet Volume 8.9 fl (9.2-11.8); Monocytes Absolute Auto 0.28 K/mm3 (0.10-0.90); Neutrophils Absolute Auto 3.1 K/mm3 (1.7-7.2); Neutrophils Percent Auto 65.7 % (50.0-70.0); Platelet Count Result 270 K/mm3 (150-420); Red Cell Distribution Width 12.2 % (11.6-14.4); White Blood Count 4.7 K/mm3 (4.8-10.8)
[2023-06-14 11:27] LABS: Hemoglobin A1C 5.2 % (<5.7)
[2023-06-14 12:18] LABS: Alanine Aminotransferase 51 U/L (14-59); Albumin Level 3.4 g/dL (3.4-5.0); Alkaline Phosphatase 58 U/L (46-116); Anion Gap 12 mmol/L (8-16); Aspartate Amino Transferase 17 U/L (15-37); Bilirubin,Total 0.4 mg/dL (0.00-1.00); Blood Urea Nitrogen 19 mg/dL (7-18); CRP 0.6 mg/dL (0.0-0.9); Calcium 8.6 mg/dL (8.5-10.1); Carbon Dioxide 25 mmol/L (21-32); Chloride 104 mmol/L (98-108); Estimated Glomerular Filt Rate > 60; Free T4 Free Thyroxine 0.85 ng/dL (0.76-1.46); Glucose 106 mg/dL (70-99); Osmolality Calculated 294 mOsm/kg (285-295); Sodium 141 mmol/L (136-145); Thyroid Stimulating Hormone 0.07 uIU/mL (0.36-3.74); Total Protein 6.8 g/dL (6.4-8.2)
[2023-06-14 12:20] LABS: Erythrocyte Sedimentation Rate 11 mm/hr (0-15)
[2023-06-20 13:56] LABS: Reference Lab Test Name FLOW CYTOMETRY
== END 2023-06-14 10:56 | disposition home or self-care (01) ==
LOC: CHSLAB 10:57
PROVIDERS: PCP Family Medicine; Visit Provider Internal Medicine
DX: E03.9 Hypothyroidism, unspecified (principal); E04.1 Nontoxic single thyroid nodule; E28.2 Polycystic ovarian syndrome; E66.01 Morbid (severe) obesity due to excess calories; Z68.42 Body mass index [BMI] 45.0-49.9, adult; D72.829 Elevated white blood cell count, unspecified
CPT/HCPCS: 36415; 80053; 83036; 84439; 84443; 85025; 85652; 86140; 88184; 88185; 88189

== ENCOUNTER 2023-06-28 07:03 | Outpatient (CLI) | payer BC, SELFPAY ==
[2023-06-28 08:41] LABS: Folic Acid 9.8 ng/mL (8.6->20); Free T3 1.96 pg/mL (2.18-3.98); Vitamin B12 1993 pg/mL (193-986)
[2023-06-30 20:33] LABS: Immunoglobulin A 246 mg/dL (47-310); Immunoglobulin G 1031 mg/dL (600-1640); Immunoglobulin M 116 mg/dL (50-300)
[2023-07-01 12:07] LABS: Vitamin D 25 Hydroxy 31 ng/mL (30-100)
== END 2023-06-28 07:04 | disposition home or self-care (01) ==
LOC: CHSLAB 07:06
PROVIDERS: PCP Family Medicine; Visit Provider Internal Medicine Hematology & Oncology
DX: D83.9 Common variable immunodeficiency, unspecified (principal); E53.8 Deficiency of other specified B group vitamins; E55.9 Vitamin D deficiency, unspecified
CPT/HCPCS: 36415; 82306; 82607; 82746; 82784; 84481

== ENCOUNTER 2023-08-01 11:51 | Outpatient (CLI) | payer BC, SELFPAY ==
--- NOTE | ~2023-08-01 | MM_ITS ---
EXAMINATION: MM screening estrella BI w concepcion HISTORY: Screening TECHNIQUE: Craniocaudal and mediolateral oblique 3-D tomosynthesis images were obtained and synthetic 2-D images were generated. CAD analysis was submitted and interpreted. COMPARISON: Comparison to multiple prior studies sequentially, with oldest reviewed study dated 02/13. BREAST PARENCHYMAL COMPOSITION: There are scattered areas of fibroglandular density. FINDINGS: There is a developing asymmetry laterally in the right breast on CC view. The left breast i s stable without evidence for malignancy. IMPRESSION: 1. Developing right breast asymmetry. 2. Additional spot compression and mediolateral views with possible follow-up breast ultrasound recom mended. BI-RADS Category 0: Incomplete: Needs additional imaging evaluation. Reviewed, dictated and finalized at location A. T TOSSER IMPRESSION: 1. Developing right breast asymmetry. 2. Additional spot compression and mediolateral views with possible follow-up b reast ultrasound recommended. BI-RADS Category 0: Incomplete: Needs additional imaging evaluation.
== END 2023-08-01 11:52 | disposition home or self-care (01) ==
LOC: CHSIMG 11:52
PROVIDERS: PCP Family Medicine; Visit Provider Obstetrics & Gynecology
DX: Z12.31 Encounter for screening mammogram for malignant neoplasm of breast (principal); R92.8 Other abnormal and inconclusive findings on diagnostic imaging of breast
CPT/HCPCS: 77063; 77067

== ENCOUNTER 2023-08-14 09:00 | Outpatient (CLI) | payer BC, SELFPAY ==
--- NOTE | ~2023-08-14 | MM_ITS ---
EXAMINATION: MM diagnostic estrella RT w concepcion HISTORY: Developing anterior lateral right breast mammographic asymmetry reported on August 01 screening mammogram examination TECHNIQUE: Additional 3-D tomosynthesis images of right breast were performed and synthetic 2-D image s were generated. Rolled medial and lateral craniocaudal Tomosynthesis views. CAD analysis was submit alexis and interpreted. COMPARISON: August 01, 2023 bilateral screening mammogram FINDINGS: No reproducible mass is identified at the area of concern in the anterior outer right breas t on craniocaudal view of August 01, 2023. The finding was consistent with composite shadowing of o verlapping fibroglandular stroma. IMPRESSION: 1. No mammographic evidence of malignancy 2. Routine annual mammographic screening is recommended BI-RADS Category 1: Negative Reviewed, dictated and finalized at location A.
== END 2023-08-14 09:01 | disposition home or self-care (01) ==
LOC: CHSIMG 09:02
PROVIDERS: PCP Family Medicine; Visit Provider Obstetrics & Gynecology
DX: N64.89 Other specified disorders of breast (principal)
CPT/HCPCS: 77061; 77065; G0279

== ENCOUNTER 2023-08-30 16:12 | Outpatient (CLI) | payer BC, SELFPAY ==
--- NOTE | ~2023-08-30 | XR_ITS ---
EXAMINATION: XR tibia fibula LT 2V INDICATION: Left leg pain TECHNIQUE: Two views of the left tibia and fibula are obtained. COMPARISON: None available FINDINGS: No fracture, dislocation, or subluxation. The bones, soft tissues, and joint spaces are nor mal. IMPRESSION: 1. No acute osseous abnormality. Reviewed, dictated and finalized at location F.
[2023-08-30 17:16] LABS: Ferritin 89 ng/mL (8-252); Iron 85 ug/dL (50-170); Percent Iron Saturation 28 % (12-57)
== END 2023-08-30 16:13 | disposition home or self-care (01) ==
LOC: CHSLAB 16:14
PROVIDERS: PCP Family Medicine; Visit Provider Internal Medicine Rheumatology
DX: D50.9 Iron deficiency anemia, unspecified (principal); M79.605 Pain in left leg
CPT/HCPCS: 36415; 73590; 82728; 83540; 83550

== ENCOUNTER 2023-11-20 06:59 | Outpatient (CLI) | payer BC, SELFPAY ==
[2023-11-20 08:10] LABS: Free T3 1.93 pg/mL (2.18-3.98); Free T4 Free Thyroxine 0.81 ng/dL (0.76-1.46); Thyroid Stimulating Hormone 0.78 uIU/mL (0.36-3.74)
== END 2023-11-20 07:00 | disposition home or self-care (01) ==
LOC: CHSLAB 07:02
PROVIDERS: Internal Medicine; PCP Family Medicine; Visit Provider Internal Medicine Endocrinology, Diabetes & Metabolism
DX: E66.01 Morbid (severe) obesity due to excess calories (principal); E06.3 Autoimmune thyroiditis; E04.1 Nontoxic single thyroid nodule; E03.8 Other specified hypothyroidism; Z68.42 Body mass index [BMI] 45.0-49.9, adult
CPT/HCPCS: 36415; 84439; 84443; 84481

== ENCOUNTER 2023-11-25 06:53 | Outpatient (CLI) | payer BC, SELFPAY ==
--- NOTE | ~2023-11-25 | MR_ITS ---
EXAMINATION: MR knee LT wo con DATE: 11/25/2023 07:58 INDICATION: Anterior left knee numbness radiating down the stoll post fall 5 months prior TECHNIQUE: Magnetic resonance imaging (MRI) of the left knee was performed without intravenous contra st. Sequences included coronal PD-weighted FSE, coronal PD-weighted FS FSE, sagittal T2-weighted FSE , sagittal PD-weighted FS FSE and axial PD weighted fat saturated FSE. COMPARISON: None. FINDINGS: Evaluation somewhat limited by suboptimal [id number] resulting from patient body habitus requiri ng use of a flex coil as opposed to the standard knee coil. Medial compartment: Medial meniscus is normal. There is mild joint space narrowing in the medial compartment with diffuse mild partial-thickness cartilage loss with smooth chondral surface along the medial tibial plateau a nd anterior to central weightbearing medial femoral condyle and without degenerative subchondral key ges. Lateral compartment: Lateral meniscus is normal. Articular cartilage is normal. Patellofemoral compartment: Partial-thickness patellar chondral ulceration and deep fissuring centered along the patellar apical ridge where there is a small focus of subarticular edema-like signal change. Trochlear cartilage appe ars normal. Ligaments and tendons: Anterior and posterior cruciate ligaments are normal. The medial collateral ligament and fibular debbie ateral ligament complex are normal. The extensor mechanism is normal. The visualized medial and later al hamstring tendons as well as the iliotibial band are normal. Fluid: Physiologic amount of fluid in the joint space. No loose osteochondral bodies identified. Small Coel 's cyst. There is prepatellar and pretibial edema without discrete bursal fluid collection. Osseous/other: There is some patchy red marrow reexpansion the metaphyseal regions of the distal femur and proximal tibia and fibula. No fracture or pathologic marrow replacing process. IMPRESSION: 1. 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 2. Small Cole's cyst. Reviewed, dictated and finalized at location A. IMPRESSION: 1. 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 2. Small Cole's cyst.
== END 2023-11-25 06:54 | disposition home or self-care (01) ==
PROVIDERS: PCP Family Medicine; Visit Provider Internal Medicine Rheumatology
DX: M25.562 Pain in left knee (principal); M17.12 Unilateral primary osteoarthritis, left knee; M22.42 Chondromalacia patellae, left knee; M71.22 Synovial cyst of popliteal space [Baker], left knee
CPT/HCPCS: 73721

== ENCOUNTER 2024-02-16 07:10 | Outpatient (CLI) | payer BC, SELFPAY ==
[2024-02-16 08:36] LABS: Free T3 1.81 pg/mL (2.18-3.98); Free T4 Free Thyroxine 0.99 ng/dL (0.76-1.46)
== END 2024-02-16 07:11 | disposition home or self-care (01) ==
LOC: CHSLAB 07:13
PROVIDERS: PCP Family Medicine; Visit Provider Internal Medicine Endocrinology, Diabetes & Metabolism
DX: E03.8 Other specified hypothyroidism (principal); E06.3 Autoimmune thyroiditis
CPT/HCPCS: 36415; 84439; 84443; 84481

== ENCOUNTER 2024-03-06 06:56 | Outpatient (CLI) | payer BC, SELFPAY ==
[2024-03-06 07:19] LABS: Basophils Absolute Auto 0.03 K/mm3 (0.00-0.10); Basophils Percent Auto 0.5 % (0.0-1.0); Eosinophils Absolute Auto 0.16 K/mm3 (0.02-0.50); Eosinophils Percent Auto 2.8 % (1.0-6.0); Hematocrit 45.3 % (35.0-49.0); Hemoglobin 15.2 g/dL (12.0-15.0); Immature Granulocyte Absolute 0.02 K/mm3 (0.00-0.00); Immature Granulocyte Percent A 0.4 % (0.0-0.0); Lymphocytes Percent Auto 19.6 % (18.0-42.0); Mean Corpuscular HGB Conc 33.6 g/dL (32-36); Mean Corpuscular Hemoglobin 32.1 pg (27.0-31.0); Mean Corpuscular Volume 95.8 fL (78.0-102.0); Mean Platelet Volume 9.4 fl (9.2-11.8); Monocytes Absolute Auto 0.39 K/mm3 (0.10-0.90); Monocytes Percent Auto 6.9 % (2.0-11.0); Neutrophils Absolute Auto 3.92 K/mm3 (1.70-7.20); Neutrophils Percent Auto 69.8 % (50.0-70.0); Platelet Count Result 244 K/mm3 (150-420); Red Blood Count 4.73 M/mm3 (4.20-5.40); Red Cell Distribution Width 12.4 % (11.6-14.4); White Blood Count 5.6 K/mm3 (4.8-10.8)
[2024-03-06 08:00] LABS: Hemoglobin A1C 5.1 % (<5.7)
[2024-03-06 08:41] LABS: Alanine Aminotransferase 24 U/L (14-59); Albumin Level 3.2 g/dL (3.4-5.0); Alkaline Phosphatase 69 U/L (46-116); Anion Gap 8 mmol/L (4-12); Aspartate Amino Transferase 15 U/L (15-37); Bilirubin,Total 0.3 mg/dL (0.00-1.00); Blood Urea Nitrogen 13 mg/dL (7-18); Calcium 8.7 mg/dL (8.5-10.1); Carbon Dioxide 27 mmol/L (21-32); Chloride 102 mmol/L (98-108); Estimated Glomerular Filt Rate > 60; Glucose 98 mg/dL (70-99); Osmolality Calculated 284 mOsm/kg (285-295); Potassium 4.4 mmol/L (3.5-5.1); Sodium 137 mmol/L (136-145); Total Protein 6.5 g/dL (6.4-8.2); Vitamin B12 624 pg/mL (193-986)
[2024-03-07 08:08] LABS: Vitamin D 25 Hydroxy 57 ng/mL (30-100)
[2024-03-13 08:09] LABS: Testosterone Free 1.8 pg/mL (0.1-6.4); Testosterone Total 9 ng/dL (2-45)
[2024-03-18 11:04] LABS: Reference Lab Test Name VITAMIN B7
== END 2024-03-06 06:57 | disposition home or self-care (01) ==
PROVIDERS: PCP Family Medicine; Visit Provider Internal Medicine Endocrinology, Diabetes & Metabolism
DX: E66.01 Morbid (severe) obesity due to excess calories (principal); R73.03 Prediabetes; L65.9 Nonscarring hair loss, unspecified
CPT/HCPCS: 36415; 80053; 82306; 82607; 83036; 84402; 84403; 84591; 85025

== ENCOUNTER 2024-07-30 16:24 | Outpatient (RCR) | payer BC, SELFPAY ==
[2024-07-30 18:12] LABS: Free T4 Free Thyroxine 1.13 ng/dL (0.76-1.46)
[2024-07-30 18:27] LABS: Free T3 2.23 pg/mL (2.18-3.98)
== END 2024-10-28 23:59 | disposition home or self-care (01) ==
LOC: CHSLAB 16:24
PROVIDERS: PCP Family Medicine; Visit Provider Internal Medicine Endocrinology, Diabetes & Metabolism
DX: E06.3 Autoimmune thyroiditis (principal)
CPT/HCPCS: 36415; 84439; 84443; 84481

== ENCOUNTER 2024-08-04 16:10 | Emergency (ER) | payer BC, SELFPAY ==
[2024-08-04 16:13] VITALS: BP 126/84; PULSE 91; RESP 18; TEMP 36.6; O2SAT 98
--- NOTE | 2024-08-04 16:15 | ED.LOWEXIN ---
HPI - Extremity Injury (Lower) General Chief Complaint: Extremity Injury, Lower Stated Complaint: right foot pain Time Seen by Provider: 08/04/24 16:14 Source: patient Mode of arrival: ambulatory Limitations: no limitations History of Present Illness HPI Narrative: Patient is a 44-year-old female with a right ankle injury yesterday while [place] a fair. She was walking on gravel and felt like she possibly stepped in a small divot on the ground with the gravel and twisted her right ankle. No other injuries. She did not fall. MD complaint: ankle injury ( right) and foot injury ( Right) Onset (ago): day(s) ( 2) Injury: Right: ankle and foot Type of Injury: inversion Place: street/outdoors Severity: moderate Severity scale (1-10): 4 Relieving factors: immobilization Exacerbating factors: weight bearing, movement and palpation Context: walking Associated symptoms: swelling and able to partially bear weight Other symptoms: none Treatments prior to arrival: other ( none) Related Data Home Medications ?Medication ?Instructions ?Recorded ?Confirmed ?Last Taken ?Type Mucinex DM 1 tab-cap BYMOUTH DAILY PRN 01/20/21 02/26/24 Unknown History Congestion dextroamphetamine-amphetamine 30 30 mg PO DAILY 03/01/22 02/26/24 Unknown History mg tablet (Adderall) ergocalciferol (vitamin D2) 1,250 50,000 unit PO MONTHLY 09/23/22 02/26/24 Unknown History mcg (50,000 unit) capsule ferrous sulfate 325 mg (65 mg 325 mg PO DAILY 09/23/22 02/26/24 Unknown History iron) tablet,delayed release Thyroid Suport w/Iodine BYMOUTH 02/21/23 02/26/24 Unknown History levothyroxine 125 mcg tablet 125 mcg PO DAILY 02/21/23 02/26/24 Unknown History (Synthroid) Allergies Allergy/AdvReac Type Severity Reaction Status Date / Time No Known Allergies Allergy Verified 08/04/24 16:10 Review of Systems Review of Systems: All systems reviewed & are unremarkable except as noted in HPI and below Constitutional: Constitutional: Reports no additional constitutional complaints Eyes: Eyes: Reports no additional eye complaints ENT: Reports system reviewed and no additional complaints, except as documented Cardiovascular: Cardiovascular: Reports no additional cardiovascular complaints Respiratory: Respiratory: Reports no additional respiratory complaints Gastrointestinal: Gastrointestinal: Reports no additional gastrointestinal complaints Genitourinary: Genitourinary: Reports no additional female genitourinary complaints Musculoskeletal: Musculoskeletal: Reports no additional musculoskeletal complaints Integumentary/Breasts: Skin/Breast: Reports system reviewed and no additional complaints, except as docu Neurologic: Reports system reviewed and no additional complaints, except as documented Psychiatric: Psychiatric: Reports no additional psychiatric complaints Endocrine: Endocrine: Reports no additional endocrine complaints Hematologic/Lymphatic: Hematologic/Lymphatic: Reports no additional hematologic/lymphatic complaints Allergic/Immunologic: Allergic/Immunologic: Reports no additional allergic/immunologic complaints [facility] Past Medical History Medical History Obesity Morbid obesity Prediabetes 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 Screening mammogram, encounter for Vaginal cuff dehiscence 02/27/12 repair of dehiscence Sleep apnea Anxiety Cervical radiculopathy Rectal bleeding Foot fracture, left Fibroids Deviated septum GERD (gastroesophageal reflux disease) Surgical History Surgical History History of robot-assisted laparoscopic hysterectomy 12/29/11 History of hysteroscopy 06/21/06 hscope d&c 10/04/10 hscope d&c/iud removal History of tonsillectomy and adenoidectomy 11/04/03 History of colonoscopy 11/30/01 H/O nasal septoplasty 01/03/15 History of 06/25/03 primary c/s--macrosomia/failed induction History of laparoscopy 06/19/00 dx lscope--adhesiolysis 01/23/02 dx lscope--extensive adhesiolysis History of arthroscopy of both knees 03/05/08 double knee surgery History of nasal surgery Family History Family History Mother Patient's mother is in good health Father Patient's father is Leukemia Grandparent Family history of malignant neoplasm of breast maternal grandmother great grandmother great uncle Diabetes mellitus paternal grandmother Cerebrovascular accident maternal grandfather Heart disease maternal grandfather paternal grandfather Social History Social History Smoking packs per day: 1 Smoking cigarettes per day: 20.0 Years smoked: 20 Smoking pack-years: 20.00 Smoking status: Former smoker (Vap) Tobacco type: cigarettes and e-cigarettes/vaping Second hand tobacco smoke exposure: No Additional smoking assessment comments: vapes currently Alcohol intake: current Drinks per week: 4 Substance use: never Substance use type: does not use Do You Feel Safe in your Home?: Yes Lack of Transportation: No Lack of Food: Never True Current Housing: I Have Housing Concerned About Future Housing: No Difficulty Paying Gas/Electric Bills: No Difficulty Paying for Meds: No Currently Unemployed: No Education: Associate Degree Difficulty w/ Childcare or Family Care: No Living arrangements: other Additional living arrangements comments: Occupation/Education: occupation 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 Gender identity (if verbalized by the patient): Female Sexual Orientation (if Verbalized by the Patient): Straight or Heterosexual Spiritual care concerns: No Exam Const: General: healthy appearing Nutritional Appearance: well nourished Orientation/consciousness: patient oriented x3 Limitations: no limitations HENMT: Head: normal to inspection Ears: external ears normal Face/Nose/Sinus: Normal external nose present Eyes: Conjunctivae: conjunctivae normal Pupils: Equal, round and reactive pupils present EOM: EOMs intact bilaterally Neck: Neck: normal visual inspection Chest: Chest palpation & inspection: normal inspection of the chest Resp: Effort & Inspection: normal respiratory effort and not labored Auscultation: clear to auscultation bilaterally and no crackles Cardio: Rate: regular rate Rhythm: regular rhythm Heart sounds: no murmurs GI: Inspection: non-distended GI Palp: Yes Soft to palpation and No Tenderness to palpation present (GI) Auscultation: normal bowel sounds : General: Yes bladder normal to palpation Back/Spine/Pelvis: Back: no CVA tenderness Skin: General skin exam: normal color Rashes: no rashes Wounds: no wounds Neuro: General: patient oriented x3 Cranial nerves: Yes Nystagmus not present Speech: normal speech Gait exam (Neuro): gait abnormal Other: difficulty walking secondary to pain of the right ankle/foot Extrem: General: abnormal to inspection Other: swelling and ecchymosis of the right ankle laterally with tenderness to palpation Psych: Mental Status: mental status grossly normal Affect: normal affect Attitude: cooperative Course Vital Signs Vital signs: Vital Signs Temperature 36.6 C 03/02/25 16:13 Pulse Rate 91 08/04/24 16:13 Respiratory Rate 18 08/04/24 16:13 Blood Pressure 126/84 08/04/24 16:13 Pulse Oximetry 98 08/04/24 16:13 Oxygen Delivery Room Air 08/04/24 16:13 Temperature 36.6 C 08/04/24 16:13 Pulse Rate 91 08/04/24 16:13 Respiratory Rate 18 08/04/24 16:13 Blood Pressure 126/84 08/04/24 16:13 Pulse Oximetry 98 08/04/24 16:13 Oxygen Delivery Room Air 08/04/24 16:13 MDM - Extremity Injury (Lower) MDM Narrative Medical decision making narrative: patient is a 44-year-old female with a right ankle injury done yesterday. We will do x-rays at this time. She did not want pain management. Imaging Data Attestation: I personally reviewed and interpreted this imaging study as follows: Radiologist's impression: X-ray right ankle and right foot were both negative for acute process Discharge Plan Discharge Clinical Impression: High ankle sprain Qualifiers: Encounter type: initial encounter Laterality: right Qualified Code(s): S93.491A - Sprain of other ligament of right ankle, initial encounter Foot sprain Qualifiers: Encounter type: initial encounter Laterality: right Qualified Code(s): S93.601A - Unspecified sprain of right foot, initial encounter Patient Disposition: Home, Self-Care Condition: Stable Instructions: Ankle Sprain (ED) Patient Language: Tajik Prescriptions: No Action ferrous sulfate 325 mg (65 mg iron) tablet,delayed release (DR/EC) 325 mg PO DAILY ergocalciferol (vitamin D2) 1,250 mcg (50,000 unit) capsule 50,000 unit PO MONTHLY dextroamphetamine-amphetamine [Adderall] 30 mg tablet 30 mg PO DAILY cyclobenzaprine 10 mg tablet 10 mg PO QHS PRN (Reason: muscle spasm) Qty: 30 0RF levothyroxine [Synthroid] 125 mcg tablet 125 mcg PO DAILY Thyroid Suport w/Iodine BYMOUTH Mucinex DM capsule 1 tab-cap BYMOUTH DAILY PRN (Reason: Congestion) naproxen 500 mg tablet 500 mg PO BID PRN (Reason: pain) Qty: 180 1RF Rx Instructions: take with food metformin 500 mg tablet 500 mg PO BID 90 Days Qty: 180 1RF liothyronine 5 mcg tablet 10 mcg PO DAILY 90 Days Qty: 180 1RF Zepbound 10 mg/0.5 mL pen injector 10 mg subcut WEEKLY Qty: 6 1RF montelukast [Singulair] 10 mg tablet 10 mg PO QHS Qty: 90 2RF spironolactone 100 mg tablet 100 mg PO BID Qty: 180 3RF pantoprazole 40 mg tablet,delayed release (DR/EC) See Rx Instructions .ROUTE .COMPLEX Qty: 90 1RF Dose Instruction: TAKE 1 TABLET BY MOUTH EVERY MORNING Rx Instructions: TAKE 1 TABLET BY MOUTH EVERY MORNING Follow-up/Referrals: Fredy Fisher MD [Primary Care Provider] - Time of Disposition: 17:18
[2024-08-04 17:22] VITALS: BP 113/81; PULSE 88; RESP 17; TEMP 36.6; O2SAT 98
== END 2024-08-04 17:22 | disposition home or self-care (01) ==
PROVIDERS: Emergency Provider Emergency Medicine; PCP Family Medicine
DX: S93.491A Sprain of other ligament of right ankle, initial encounter (principal); S93.601A Unspecified sprain of right foot, initial encounter; E03.9 Hypothyroidism, unspecified; Z87.891 Personal history of nicotine dependence; X50.0XXA Overexertion from strenuous movement or load, initial encounter
CPT/HCPCS: 29515; 73610; 73630; 99283; L4350

== ENCOUNTER 2024-09-29 18:39 | Emergency (ER) | payer BC, SELFPAY ==
--- NOTE | ~2024-09-29 | CT_ITS ---
CT cervical spine wo con Ordering provider: Derrell Vega MD History: . RIGHT SIDE NECK PAIN X 4 DAYS. NKI. . Comparison: February 05, 2022 Technique: CT of the cervical spine was performed without contrast. Sagittal and coronal reformatted images were also obtained and reviewed. Automated exposure control and iterative reconstruction jean hnique were employed. The dose-length product was 489.14 mGy-cm. FINDINGS: VERTEBRAE: No subluxation or acute fracture. The occipital condyles are intact. Kyphosis centered at the level of C4-C5. DISC SPACES: Normal. Multilevel facet joint disease in the upper thoracic area. Narrowing of the fora gunner at the level of C3-C4. Narrowing of the right foramen at the level of C4-C5. PARASPINOUS SOFT TISSUES: Nodule in the left lobe of the thyroid. Ultrasound evaluation advised. IMPRESSION: No acute osseous abnormality cervical spine. Multilevel facet joint disease in the upper thoracic area. Nodule in the left lobe of the thyroid. Ultrasound evaluation advised. Reviewed, dictated and finalized at location A.
[2024-09-29 18:42] VITALS: BP 128/92; PULSE 91; RESP 20; TEMP 36.5; O2SAT 100
--- OUTSIDE RECORDS SUMMARY | 2024-09-29 18:42 | XMS_ITS | Encounter Summary ---
Author Organization [facility] Address [address] [place] [address] Care Team Providers Care Body Team Member Name Role Phone Fredy Fisher MD Primary Care Provider [phone] Encounter Details Date Type Department Care Team (Latest Contact Info) Description 11/10/2005 Outpatient [facility] [address] [address] [place] [address] Howard Malik MD [address] [place] [id number] Unspecified Sinusitis (Chronic) (Primary Dx) Social History Tobacco Use Types Packs/Day Years Used Date Smoking Tobacco: Never Assessed Comments Unknown Sex and Gender Information Value Date Recorded Sex Assigned at Not on file 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
--- OUTSIDE RECORDS SUMMARY | 2024-09-29 18:42 | XMS_ITS | Patient Health Record ---
Author Organization [facility] Storefront Address [address] [place] [address] Care Team Providers Care Ornamenter Name Role Phone Fredy Fisher MD Primary Care Provider Unavaila Redd Nowak Unavailable [phone] Migration, Provider Unavailable Unavailable Allergies No Known Allergies Results Component Value Reference Range Notes UDT Reviewed date:04/18/2024 05:26:53 PM Interpretation: Performing Lab: Notes/Report: THC N 0 - 50 ng/ml Cocaine N 0 - 300 ng/ml Amphetamine P 0 - 1000 ng/ml Buprenorphine (BUP) N 0 - 10 ng/ml Secobarbital (Bar) N 0 - 300 ng/ml Oxazepam (BZO) N 0 - 300 ng/ml 3-ngaslspefo-8,0-glpgcjye-2,3-diphenylpyrrolidine (CLAUDIA P) N 0 - 300 ng/ml Methamphetamine (MET) N 0 - 1000 ng/ml Methylenedioxymethamphetamine (MDMA) N 0 - 500 ng/ml Morphine (MOP 300/[id number]) N 0 - 300 ng/ml Methadone (MTD) N 0 - 300 ng/ml Phencyclidine (PCP) N 0 - 25 ng/ml Nortriptyline (TCA) N 0 - 1000 ng/ml Oxycodone N 0 - 300 ng/ml x N 0 - 300 ng/ml Reason For Referral No Information Medications Medication SIG (Take, Route, Frequency, Duration) Notes Start Date End Date Status Pantoprazole Sodium 40 MG Oral for 90 Days Active Spironolactone 100 MG Oral for 90 Days Active Lysine *Pick strength-form from [employer] for eRX* 09/06/2023 Active Cyclobenzaprine HCl 10 MG Oral 09/06/2023 Active Mucinex DM *Pick strength-form from [employer] for eRX* 09/06/2023 Active Adderall XR 30 MG 1 capsule in the morning Orally Once a day for 30 days do not fill until 10/08/2024 08/23/2024 Active Liothyronine Sodium 5 MCG Oral 09/06/2023 Active Adderall XR 30 MG 1 capsule in the morning Oral Once a day for 30 days do not fill until 09/10/2024 08/23/2024 Active ProAir HFA 108 (90 Base) MCG/ACT Inhalation 09/06/2023 Active Adderall XR 30 MG 1 capsule in the morning Orally Once a day for 30 days do not fill until 11/05/2024 08/23/2024 Active ZEPBOUND 5 MG/0.5 ML SUBCUTANEOUS PEN INJECTOR *Reorder from [employer] for eRx and Interaction Alerts* 09/06/2023 Active Amphetamine-Dextroamphe t ER 30 MG 1 capsule in the morning Oral Once a day for 30 days 04/08/2024 Active Pantoprazole Sodium 40 MG Oral 09/06/2023 Active Social History Tobacco Use: Social History Observation Description Date Details (start date - stop date) Former Smoker NA - NA Sex Assigned At : Social History Observation Description Sex Assigned At Female Tobacco Control (Standard) Question Answer Notes Tobacco use: Former smoker How long has it been since you last smoked? 5-10 years AUDIT-C (Standard) Question Answer Notes Did you have a drink contain ing alcohol in the past year? Yes Points 4 Interpretation Positive How often did you have six o r more drinks on one occasion in the past year? 2 to 4 times a month (2 points) How many drinks did you have on a typical day when you were drinking in the past year? 1 or 2 drinks (0 point) How often did you have a dri nk containing alcohol in the past year? 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, predominantly inattentive type (F90.0) 09/06/19 24 Active confirmed Vital Signs Heart Rate 108 /min 04/18/2024 Height-cm 170.18 cm 04/18/2024 Blood pressure diastolic 86 mm Hg 04/18/2024 Weight-kg 113.4 kg 04/18/2024 Height 67.00 in 04/18/2024 Blood pressure systolic 126 mm Hg 04/18/2024 Weight 250.0 lbs 04/18/2024 BMI 39.15 kg/m2 04/18/2024 Encounters Encounter Location Date Provider Diagnosis [facility] [address] [place] [address] 10/12/2023 Provider Migration Attention-deficit hyperactivity disorder, predominantly inattentive type F90.0 [facility] [address] [place] [address] 10/23/2023 Provider Migration Attention-deficit hyperactivity disorder, predominantly inattentive type F90.0 [facility] [address] [place] [address] 12/18/2023 Redd Aguillon Attention-deficit hyperactivity disorder, predominantly inattentive type F90.0 and Generalized anxiety disorder F41.1 [facility] [address] [place] [address] 04/18/2024 Redd Aguillon Attention-deficit hyperactivity disorder, predominantly inattentive type F90.0 and Generalized anxiety disorder F41.1 [facility] [address] [place] [address] 08/23/2024 Redd Aguillon Attention-deficit hyperactivity disorder, predominantly inattentive type F90.0 and Generalized anxiety disorder F41.1 [facility] [address] [place] [address] 10/06/2023 Provider Migration [facility], [facility] [address] [place] [address] 10/10/2023 Provider Migration [facility], [facility] [address] [place] [address] 10/12/2023 Provider Migration [facility], [facility] [address] [place] [address] 10/18/2023 Provider Migration [facility], [facility] [address] [place] [address] 10/21/2023 Provider Migration [facility], [facility] [address] [place] [address] 10/22/2023 [facility], [facility] [address] [place] [address] 02/22/2024 Redd Aguillon Attention-deficit hyperactivity disorder, predominantly inattentive type F90.0 [facility], [facility] [address] [place] [address] 08/12/2024 Redd Aguillon Attention-deficit hyperactivity disorder, predominantly inattentive type F90.0 [facility], [facility] [address] [place] [address] 02/20/2024 Redd Aguillon Attention-deficit hyperactivity disorder, predominantly inattentive type F90.0 [facility], [facility] [address] [place] [address] 03/04[facility]20[facility] [address] [place] [address] 03/05/2024 Redd Aguillon Attention-deficit hyperactivity disorder, predominantly inattentive type F90.0 [facility], [facility] [address] [place] [address] 04/03/2024 [facility], [facility] [address] [place] [address] 04/08/2024 [facility] [address] [place] [address] 04/08/2024 Redd Aguillon Attention-deficit hyperactivity disorder, predominantly inattentive type F90.0 [facility], [facility] [address] [place] [address] 08/09/2024 Redd Aguillon [facility], [facility] [address] [place] [address] 08/09/2024 [facility] [address] [place] [address] 08/13/2024 [facility], [facility] [address] [place] [address] 08/13/20[facility] [address] [place] [address] 08/13/2024 Redd Aguillon [facility] [address] [facility] [address] [place] [address] 08/23/2024 Redd Aguillon [facility] [address] [facility] [address] [place] [address] 08/23/2024 Redd Aguillon [facility] [address] [facility] [address] [facility] [address] [place] [address] 08/27/2024 Redd Aguillon Assessments Encounter Date Diagnosis (ICD Code) Assessment Notes Treatment Notes Treatment Clinical Notes Section Notes 12/18/2023 Attention-deficit hyperactivity disorder, predominantly inattentive type (ICD-10 - F90.0) may add magnesium glycinate 200mg- 400mg daily for adhd symptoms 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 The patient has a history of feeling better on a higher dose of T3, but the current provider is concerned about the risk of atrial fibrillation and hyperthyroidism. - Plan: Recommend the patient to follow up with their primary care provider or an box car checker to discuss the concerns about the T3 medication and the possibility of adjusting the dosage based on the patient's symptoms and clinical presentation. Monitor thyroid function tests and adjust treatment as needed. 2. ADHD: - Patient is currently on Azstarys 30 mg for ADHD management. The patient reports that anxiety has been stable, but focus remains an issue. - Plan: Refill the Azstarys 30 mg prescription. Encourage the patient to continue taking the medication as prescribed and monitor for any changes in symptoms. Consider re-evaluating the medication regimen if the patient's focus does not improve. 3. Hearing issues: - Patient mentioned having hearing issues during the visit. - Plan: Recommend the patient to undergo a hearing evaluation with an gis mapping technician to assess the extent of the hearing issues and determine if any interventions are needed. 4. Magnesium supplementation: - Patient inquired about the potential interaction between magnesium and hormone levels. The clinician confirmed that magnesium does not interact with thyroid medications. - Plan: The patient may continue taking magnesium as needed. Encourage the patient to discuss any concerns about supplements with their primary care provider. 10/23/2023 Attention-deficit hyperactivity disorder, predominantly inattentive type (ICD-10 - F90.0) 10/12/2023 Attention-deficit hyperactivity disorder, predominantly inattentive type (ICD-10 - F90.0) 02/22/2024 Attention-deficit hyperactivity disorder, predominantly inattentive type (ICD-10 - F90.0) 03/05/2024 Attention-deficit hyperactivity disorder, predominantly inattentive type (ICD-10 - F90.0) 04/18/2024 Attention-deficit hyperactivity disorder, predominantly inattentive type (ICD-10 - F90.0) may add magnesium glycinate 200mg- 400mg daily for adhd symptoms 1. Anxiety: - Patient reports increased anxiety levels. Plan: - Continue monitoring anxiety levels during follow-up visits. - Encourage patient to engage in stress-reduction techniques and consider referral to therapy if anxiety worsens. 2. Thyroid function and medication adjustment: - Patient reports a desire to increase thyroid medication dosage for improved functioning. - TSH level from February was 1.1. - Patient is currently under the care of Dr. Dunn for thyroid management. Plan: - Encourage patient to continue discussing medication adjustments with Dr. Dunn. - Monitor thyroid function during follow-up visits. 3. Attention Deficit Hyperactivity Disorder (ADHD): - Patient is currently prescribed Adderall XR 30 mg. Plan: - Sent prescription for Adderall XR 30 mg to [facility]. - Scheduled refills for 05/28, 06/03, and 07/01/24. - Schedule follow-up visit in 4 months to assess medication effectiveness and any potential side effects. 4. 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 Plan: - Encourage patient to seek support from friends, family, or support groups to help manage caregiver stress. - Monitor patient's mental health during follow-up visits and consider referral to therapy if needed. 04/08/2024 Attention-deficit hyperactivity disorder, predominantly inattentive type (ICD-10 - F90.0) 02/20/2024 Attention-deficit hyperactivity disorder, predominantly inattentive type (ICD-10 - F90.0) 08/23/2024 Attention-deficit hyperactivity disorder, predominantly inattentive type (ICD-10 - F90.0) may add magnesium glycinate 200mg- 400mg daily for adhd symptoms 08/12/2024 Attention-deficit hyperactivity disorder, predominantly inattentive type (ICD-10 - F90.0) 04/18/2024 Generalized anxiety disorder (ICD-10 - F41.1) 1. Anxiety: - Patient reports increased anxiety levels. Plan: - Continue monitoring anxiety levels during follow-up visits. - Encourage patient to engage in stress-reduction techniques and consider referral to therapy if anxiety worsens. 2. Thyroid function and medication adjustment: - Patient reports a desire to increase thyroid medication dosage for improved functioning. - TSH level from February was 1.1. - Patient is currently under the care of Dr. Dunn for thyroid management. Plan: - Encourage patient to continue discussing medication adjustments with Dr. Dunn. - Monitor thyroid function during follow-up visits. 3. Attention Deficit Hyperactivity Disorder (ADHD): - Patient is currently prescribed Adderall XR 30 mg. Plan: - Sent prescription for Adderall XR 30 mg to [facility]. - Scheduled refills for 05/28, 06/03, and 07/01/24. - Schedule follow-up visit in 4 months to assess medication effectiveness and any potential side effects. 4. 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 Plan: - Encourage patient to seek support from friends, family, or support groups to help manage caregiver stress. - Monitor patient's mental health during follow-up visits and consider referral to therapy if needed. 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 The patient has a history of feeling better on a higher dose of T3, but the current provider is concerned about the risk of atrial fibrillation and hyperthyroidism. - Plan: Recommend the patient to follow up with their primary care provider or an box car checker to discuss the concerns about the T3 medication and the possibility of adjusting the dosage based on the patient's symptoms and clinical presentation. Monitor thyroid function tests and adjust treatment as needed. 2. ADHD: - Patient is currently on Azstarys 30 mg for ADHD management. The patient reports that anxiety has been stable, but focus remains an issue. - Plan: Refill the Azstarys 30 mg prescription. Encourage the patient to continue taking the medication as prescribed and monitor for any changes in symptoms. Consider re-evaluating the medication regimen if the patient's focus does not improve. 3. Hearing issues: - Patient mentioned having hearing issues during the visit. - Plan: Recommend the patient to undergo a hearing evaluation with an gis mapping technician to assess the extent of the hearing issues and determine if any interventions are needed. 4. Magnesium supplementation: - Patient inquired about the potential interaction between magnesium and hormone levels. The clinician confirmed that magnesium does not interact with thyroid medications. - Plan: The patient may continue taking magnesium as needed. Encourage the patient to discuss any concerns about supplements with their primary care provider. 08/23/2024 Generalized anxiety disorder (ICD-10 - F41.1) Plan Of Treatment Next Appt Details Provider Name:Redd Sow Moienio fantasma, 10/16/2024 04:30:00 PM, [address], [place] [address], [place], [address], Provider Name:Redd meek, 12/13/2024 04:45:00 PM, [address], [facility] [address], [place], [address], Provider Name:Redd Magi Opal meek, 01/13/2025 04:45:00 PM, [address], [facility] [address], [place], [address], Insurance Providers Payer Name Payer Address Payer Phone Subscriber Number Group Number Insured Name Patient Relationship to Insured Coverage Start Date Coverage End Date [employer] [address] [place] [address] [id number] Sybil LORENZANAS ALEXIS Self - patient is the insured Medical (General) History Medical History History ICD Code Problems: Attention deficit hyperactivity disorder, predominantly inattentive type Generalized anxiety disorder Sky thyroiditis , Surgical History Surgery Date(Month/Year) Sinus surgery 07/06/2013 Tonsilectomy/adenoids 11/03/2000 Hysterectomy (41738) 12/04/2011 Bilateral knee surgery 2014 abdominal hysterectomy
--- OUTSIDE RECORDS SUMMARY | 2024-09-29 18:42 | XMS_ITS | Data Portability ---
Author Organization [facility] [employer], Main Office Address [address] [place] [address] Assessment No assessment recorded. Plan of Treatment Reminders Order Date Submit Date Provider Last Modified By Organization Details Last Modified Time Details Appointments None recorded. Lab dhea-sulfat e, serum 2022 023 [facility], [address] [place], [address], 3 12:44:30 testosteron e, free + total, serum 2022 023 [facility], [address] [place], [address], 3 12:44:29 insulin, serum 2022 023 [facility], [address] [place], [address], 3 09:49:57 T3, free, serum or plasma [email or web address], [address] [place], [address], 3 09:58:41 TSH + free T4, serum 2022 023 [facility], [address] [place], [address], 3 12:25:25 CMP, serum or plasma 2022 023 [facility], [address] [place], [address], 3 12:23:22 thyroid peroxidase (tpo) Ab, serum 2022 023 [facility], [address] [place], [address], 3 17:10:58 Referral None recorded. Procedures None recorded. Surgeries None recorded. Imaging None recorded. Medication Orders spironolact one 50 mg tablet [address]/Pharmacy #[id number], [address] [place], [address], 3 10:56:27 liothyronin e 5 mcg tablet 2022 023 [facility]/Pharmacy #[id number], [address] [place], [address], 3 09:57:00 Patient TargetsNo targets recorded. Patient InstructionsNo instructions recorded. Reason for Referral None Reported. Results Created Date Observation Date Name Description Value Unit Range Abnormal Flag Note LastModifiedBy Organization Detail LastModifiedTime 02/03/20 21 02/02/2021 MAMMO , scree deandre, digit al, bilat eral No observ ation record ed. [id number] [facility] [address] [place], [address], 08/03/2022 06:20:00 03/17/20 22 03/17/2022 US, thyro id No observ ation record ed. [id number] [facility] [address] [place], [address], 08/03/2022 06:20:00 Result Notes None recorded. Problems Name Problem SNOMED Code Status Onset Date Resolution Date Notes Provider Name and Address Organization Details Recorded Time Sensorineu ral hearing loss of bilateral ears 272445843 Active 2022 Not Available [facility] 3 03:36:30 Vaginal discharge 849494935 Active Not Available [facility] 3 03:36:30 Fibrocysti c disease of breast 81648961 Active Not Available [facility] 3 03:36:30 Closed fracture of cuneiform bone of foot 63874529 Active Not Available [facility] 3 03:36:30 Bilateral tinnitus 8307138758983 Active 2022 Not Available [facility] 3 03:36:30 Sprain of foot 14031571 Active Not Available [facility] 3 03:36:30 Hypothyroi dism 02905114 Active 2022 Not Available [facility] 3 03:36:30 Polycystic ovary syndrome 912657452 Active 2022 Not Available [facility] 3 03:36:30 Problem Notes None recorded. Procedures Surgical History Date Name Laterality Status Provider Name and Address Organization Details Recorded Time 02/03/20 21 Most Recent Mammogram completed Not Available [facility] 08/03/2022 06:12:02 01/04/20 15 ENT Surgery completed Not Available [facility] 08/04/19 06:12:03 02/27/20 12 [employer] Surgery completed Not Available [facility] 08/04/19 06:12:03 12/29/19 12 [employer] Surgery completed Not Available [facility] 08/04/19 06:12:03 11/17/19 12 Date of Last Pap Smear completed Not Available [facility] 08/03/2022 06:12:02 10/15/19 11 [employer] Surgery completed Not Available [facility] 08/04/19 06:12:03 03/05/20 08 Orthopedic Surgery completed Not Available [facility] 08/03/2022 06:12:03 06/11/19 07 [employer] Surgery completed Not Available [facility] 08/04/19 06:12:03 11/04/19 04 tonsilectomy/ad enoids completed Not Available [facility] 08/03/2022 06:12:03 06/28/19 04 section completed Not Available [facility] 08/03/2022 06:12:03 01/24/20 02 [employer] Surgery completed Not Available [facility] 08/04/19 06:12:03 12/01/19 Colonoscopy completed Not Available [facility] 08/04/19 06:12:03 06/19/19 [employer] Surgery completed Not Available [facility] 08/04/19 06:12:03 Imaging Results Imaging Date Name Status LastModified by Organiz ation Details LastModified Time 02/02/2021 MAMMO, screening, digital, bilateral completed [id number] [facility] [address] [place], [address], 08/03/2022 06:20:00 03/17/2022 US, thyroid completed [id number] [facility] [address] [place], [address], 08/03/2022 06:20:00 Procedure Notes None recorded. Medical Equipment None Reported. Allergies No known drug allergies Medications Name Sig Start Date Stop Date Status Note LastModified by Organization Details LastModified Time cyclobenzap rine 10 mg tablet TAKE 1 TABLET BY MOUTH AT BEDTIME NEEDED FOR MUSCLE SPASM active Not Available Not Available No t Available ibuprofen 800 mg tablet TAKE 1 TABLET BY MOUTH 3 TIMES A DAY NEEDED FOR PAIN active Not Available Not Available No t Available benzonatate 200 mg capsule active Not Available Not Available Not Available methylpheni date 10 mg tablet active Not Available Not Available Not Available valacyclovi r 1 gram tablet 09/28 completed Not Available Not Available Not Available tolterodine ER 4 mg capsule,ext ended release 24 hr TAKE 1 CAPSULE BY MOUTH EVERY DAY 10/24 completed Not Available Not Available Not Available methylpheni date 20 mg tablet TAKE 1 TABLET BY MOUTH EVERY DAY 09/28 completed Not Available Not Available Not Available metronidazo le 0.75 % (37.5 mg/5 gram) vaginal gel Insert 1 applicato rful by vaginal route for 5 days. 07/02 completed Not Available Not Available Not Available Synthroid 125 mcg tablet Take 1 tablet every day by oral route in the morning for 90 days. 2022 active Not Available Not Available Not Avai lable prednisone 20 mg tablet TAKE 2 TABLETS BY MOUTH DAILY 09/28 completed Not Available Not Available Not Available Synthroid 100 mcg tablet TAKE 1 TABLET EVERY MORNING FOR HYPOTHYRO IDISM 2022 active Not Available Not Available Not Avai lable acetaminoph en 300 mg-codeine 30 mg tablet TAKE 1 TABLET BY MOUTH EVERY 6 HOURS NEEDED FOR PAIN active Not Available Not Available No t Available liothyronin e 5 mcg tablet TAKE 2 TABLETS TWICE A DAY BY MOUTH AROUND THE CLOCK FOR 90 DAYS. active Not Available Not Available No t Available tramadol 50 mg tablet TAKE 1 TABLET BY MOUTH TWICE A DAY NEEDED 10/24 completed Not Available Not Available Not Available alprazolam 0.25 mg tablet active Not Available Not Available Not Available meclizine 25 mg tablet TAKE 1 TABLET BY MOUTH 3 TIMES A DAY NEEDED FOR DIZZINESS 10/24 completed Not Available Not Available Not Available levothyroxi ne 50 mcg tablet TAKE 1 TABLET BY MOUTH EVERY DAY IN THE MORNING 10/24 completed Not Available Not Available Not Available cephalexin 500 mg capsule TAKE 1 CAPSULE BY MOUTH EVERY 6 HOURS FOR 5 DAYS 09/28 completed Not Available Not Available Not Available pantoprazol e 40 mg tablet,mary yed release TAKE 1 TABLET BY MOUTH EVERY DAY IN THE MORNING active Not Available Not Available No t Available ofloxacin 400 mg tablet active Not Available Not Available Not Available ferrous sulfate 325 mg (65 mg iron) tablet Take 1 tablet every day by oral route at noon for 90 days. active Not Available Not Available No t Available clotrimazol e-betametha sone 1 %-0.05 % topical cream APPLY TO AFFECTED AREA TWICE A DAY active Not Available Not Available No t Available montelukast 10 mg tablet TAKE 1 TABLET BY MOUTH AT BEDTIME active Not Available Not Available No t Available hydrocodone 5 mg-acetamin ophen 500 mg tablet active Not Available Not Available No t Available ergocalcife rol (vitamin D2) 1,250 mcg (50,000 unit) capsule TAKE 1 CAPSULE BY MOUTH WEEKLY X 3 MOS, THEN 1 CAPS EVERY OTHER WEEK X 3 MOS, THEN 1 CAP MONTHLY active Not Available Not Available No t Available azelastine 137 mcg (0.1 %) nasal spray INSTILL 2 SPRAYS INTO EACH NOSTRIL EVERY 12 HOURS active Not Available Not Available No t Available cefuroxime axetil 500 mg tablet TAKE 1 TABLET BY MOUTH EVERY 12 HOURS active Not Available Not Available No t Available levofloxaci n 500 mg tablet active Not Available Not Available Not Available levofloxaci n 750 mg tablet TAKE 1 TABLET BY MOUTH EVERY DAY 09/28 completed Not Available Not Available Not Available methylpredn isolone 4 mg tablets in a dose pack TAKE 6 TABLETS ON DAY 1 DIRECTED ON PACKAGE AND DECREASE BY 1 TAB EACH DAY FOR A TOTAL OF 6 DAYS 10/24 completed Not Available Not Available Not Available albuterol sulfate HFA 90 mcg/actuati on aerosol inhaler INHALE 2 PUFFS BY MOUTH EVERY 4 TO 6 HOURS active Not Available Not Available No t Available ferrous sulfate 325 mg (65 mg iron) tablet,mary yed release TAKE 1 TABLET EVERY DAY BY ORAL ROUTE AT NOON FOR 90 DAYS. active Not Available Not Available No t Available dextroamphe tamine-amph etamine ER 30 mg 24hr capsule,ext end release TAKE 1 CAPSULE BY MOUTH EVERY DAY IN THE MORNING active Not Available Not Available No t Available fluticasone propionate 50 mcg/actuati on nasal spray,suspe nsion active Not Available Not Available Not Available metformin ER 500 mg tablet,exte nded release 24 hr TAKE 1 TABLET BY MOUTH TWICE A DAY BEFORE MEALS 2022 active Not Available Not Available Not Avai lable sertraline 50 mg tablet TAKE 1 TABLET BY MOUTH EVERY DAY 09/28 completed Not Available Not Available Not Available naproxen 500 mg tablet TAKE 1 TABLET BY MOUTH TWICE A DAY NEEDED FOR PAIN TAKE WITH FOOD active Not Available Not Available No t Available spironolact one 50 mg tablet active Not Available Not Available Not Available methylpheni date ER 27 mg tablet,exte nded release 24 hr TAKE 1 TABLET EVERY DAY BY MOUTH IN THE MORNING FOR 30 DAYS. 10/24 completed Not Available Not Available Not Available Flovent HFA 110 mcg/actuati on aerosol inhaler INHALE 1 PUFF BY MOUTH EVERY 12 HOURS active Not Available Not Available No t Available Claritin 07/02 completed Not Available Not Available Not Available Zyrtec 2014 active Not Available Not Available Not Avai lable metformin ER 500 mg 24 hr tablet,exte nded release (gastric retention) active Not Available Not Available N ot Available omeprazole 20 mg tablet,mary yed release TAKE 1 TABLET BY MOUTH TWICE A DAY 10/24 completed Not Available Not Available Not Available Aleve-D Sinus and Cold 220 mg-120 mg tablet,exte nded release active Not Available Not Available Not Available Tirosint 50 mcg capsule Take 1 capsule every day by oral route in the morning for 30 days. active Not Available Not Available No t Available potassium chloride ER 20 mEq tablet,exte nded release TAKE 1 TABLET BY MOUTH TWICE A DAY 09/28 completed Not Available Not Available Not Available Vitals Date Recorded Body mass index (BMI) Body height Body weight Systolic blood pressure Diastolic blood pressure Provider Name and Address Organization Details Last Updated DateTime 09/28/2020 48.2 kg/m2 170.18 cm 576602.4 5 g 124 mm[Hg] 80 mm[Hg] Not Available [facility] 3 06:15:02 Date Recorded Body mass index (BMI) Body height Oxygen saturation Oxygen saturation in Arterial blood by Pulse oximetry Heart rate Body temperature Body weight Systolic blood pressure Diastolic blood pressure Provider Name and Address Organization Details Last Updated DateTime 2 46.9 kg/m2 170.18 cm 99 % 99 % 89 /min 97.2 [degF] 965692. 56 g 120 mm[Hg] 90 mm[Hg] Not Available [facility] 3 06:15:02 Date Recorded Body mass index (BMI) Body height Oxygen saturation Oxygen saturation in Arterial blood by Pulse oximetry Heart rate Body temperature Body weight Systolic blood pressure Diastolic blood pressure Provider Name and Address Organization Details Last Updated DateTime 2 47.8 kg/m2 170.18 cm 98 % 98 % 81 /min 97.7 [degF] 586547. 67 g 130 mm[Hg] 85 mm[Hg] Not Available [facility] 3 06:15:02 Date Recorded Body mass index (BMI) Body height Body temperature Body weight Provider Name and Address Organization Details Last Updated DateTime 07/27/2022 46 kg/m2 170.18 cm 97.8 [degF] 148515 g Not Available [facility] 08/03/2022 06:15:03 Date Recorded Body height Body mass index (BMI) Body weight Body temperature Respiratory rate Heart rate Systolic blood pressure Diastolic blood pressure Provider Name and Address Organization Details Last Updated DateTime 3 170.18 cm 46 kg/m2 429228. 16 g 97.6 [degF] 18 /min 88 /min 128 mm[Hg] 86 mm[Hg] LAUREN Mcdaniels [facility] [employer] [facility] 09:41:30 Social History Question Answer Notes LastModified by [email or web address] Details LastModified Time Tobacco Smoking Status Former Smoker 7 years ago jesús collins, [facility] [employer] [facility] 10/24/2022 09:34:04 What Is Your Level Of Alcohol Consumption? Occasional [id number] Information not available 08/03/2022 What Is Your Level Of Caffeine Consumption? Occasional [id number] Information not available 08/03/2022 Which Illicit Or Recreational Drugs Have You Used? No [email or web address] Information not available 10/24/2022 Do You Or Have You Ever Used E-cigarettes Or Vape? Current User Of Electronic Cigarettes [email or web address] Information not available 10/24/2022 Do You Or Have You Ever Used Smokeless Tobacco? Never Used Smokeless Tobacco [id number] Information not available 08/03/2022 Sex: Unknown Functional Status Question Answer Note LastModified by [email or web address] Details LastModified Time What is your exercise level? Occasional [id number] Information not available 08/03/2022 Mental Status None recorded. Family History Relationship Description Onset Age of this Age Resolved Age Notes LastModified by Organization Details LastModified Time Paternal Grandmother Diabetes mellitus [id number] Not available 08/03/2022 06:12:05 Paternal Grandmother Malignant tumor of breast [email or web address] Not available 10/24 09:34:03 Maternal Grandfather Cerebrovascu lar accident [email or web address] Not available 09:34:03 Maternal Grandfather Heart disease [id number] Not available 08/03/2022 06:12:05 Paternal Grandfather Heart disease [id number] Not available 08/03/2022 06:12:05 Father Leukemia [email or web address] Not availab le 10/24/2022 09:34:03 Notes:great grandmother & gr eat uncle - breast cancer NO ENT HISTORY Medical History Condition Response HEART DISEASE/HEART PROBLEMS N DIABETES, TYPE N OTHER # 1 Y ANXIETY DISORDER Y HYPERTENSION N HIGH CHOLESTEROL / HYPERLIPIDEMIA N Gynecological History Statement/Question Response Abnormal Pap Y Date of Last Pap Smear 11/17/2011 Current Control Method Hysterectom y Age at Menarche 9 Most Recent Mammogram 02/02/2021 Breast Problems no Obstetrics History GPAL:G 1 P 1 0 0 1 Type Value Full Term 1 Living 1 Total 1 Past Encounters Encounter ID Performer Location Encounter Start Date Encounter Closed Date Diagnosis/Indication Diagnosis SNOMED-CT Code Diagnosis ICD10 Code Diagnosis Note [id number] _ATHENA_M IGRATION_ DEFAULT_1 _1 , 09/28/2020 00:00:00 09/28/2020 10:05:55 [id number] [facility] [place] [address] [place] [address] 03/11/2022 00:00:00 03/11/2022 09:56:53 [id number] [facility] [place] [address] [place] [address] 04/19/2022 00:00:00 04/19/2022 16:15:06 [id number] [facility] [place] [address] [place] [address] 07/27/2022 00:00:00 07/27/2022 16:37:37 [id number] Raven Elena MD [facility] [place] [address] [place] [address] 10/24/2022 09:29:43 10/24/2022 10:05:44 Hypothyroidism 71375014 E03.9 TSH and FT4 in range- continue on tirosint 100 mcg daily Will uptitrate her liothyroni ne to 10 mcg twice daily if she continues to have cold intoleranc e- her FT3 is under 2.5 pg/ML. She was reminded to take her tirosint on empty stomach with glass of water and wait one hour to eat or have her coffee in morning and up to 4 hours if ever taking any heartburn or reflux medication s to help optimize absorption . Discussed paleo like diet with restrictio n of GMOs to help with energy and to optimize absorption of vitamins and minerals and reduce inflammati on. She is aware if she goes fully AIP we will need to look to dose reduction as she will lose weight and her medication requiremen ts will drop. She is looking to go 70% AIP and 30% traditiona l. Polycystic ovary syndrome 134186673 E28.2 WIll trial on spironolac tone 50 mg daily x 2 weeks then uptitrate to 100 mg daily if tolerated. Continue metformin for insulin sensitizat ion. Recommende d up to 60 grams of carbs a day split into 6 small 10 gram carb meals or three larger 20 gram carb meals in addition to up to 70 grams of protein daily split into 10-15 grams for 5-6 smaller meals. The recommende d diet should be one of which she can incorporat e on a daily basis that will not modulate her lifestyle - discussed a diet of increased fiber; decreased refined carbohydra mayur, trans fats, and saturated fats with focus on monounsatu rated fats such as unprocesse d chicken, turkey, nuts (excluding peanuts) and beans. Spent up to 25 minutes preparing to see the patient (eg, review of tests), obtaining and/or reviewing separately obtained history, performing a medically appropriat e examinatio n and evaluation , counseling and educating the patient, ordering medication s, tests, along with documentin g clinical informatio n in the electronic health record, independen tly interpreti ng results and communicat ing results to the patient. RTC in 3-4 months. Patient was provided a handwritte n lab order which contains our fax number. If she chooses to go outside of the [facility] system to obtain labwork she was advised to provide our fax number and my informatio n to the lab she will be obtaining labwork from in order to have her labs properly forwarded over for me to review so there is no loss of follow up due to use of outside network. She was also advised to contact our clinic informing us that she has completed her labwork so we are aware we will need to reach out to the appropriat e laboratory to request her results be forwarded to us so I might have the ability to review and make further medical decision making in her case. She voiced understand ing. Health Concerns Section Related Observation LastModified by Organization Detai ls LastModified Time None Recorded Concern Status LastModified by Organization Details LastModified Time None Recorded Advance Directives Directive None Recorded Payers Encounter Date Sequence Insurance Name Policy Number Policy Lopez Covered Member ID Lopez Member ID Guarantor Name 10/24/2022 1 [facility] (PPO[facility] [id number] Chanda Carrion [id number] Chanda Carrion Notes Date Note Type Note Provider Name and Address Organization Details Recorded Time 10/24/2022 text/html 42 yo female com es in for follow up in management of hypothyroidism, thyroid nodule and impaired fasting glucose. last seen in Apr at that time we continued tirosint 100 mcg daily and metformin twice daily with meals Since starting the liothyronine she doesn't get cold sores anymore and doesn't get heat/cold intolerance. She feels in the last week she has lost more hair in the shower. Her energy level is going downward. She feels overall good. She went AIP for 3 weeks/ lost 10 pounds felt very good with exception of some palpitations as though her requirements went down. She is noticing some hair loss/thinning. labs from 08/25:TSH of 0.36 uIU/mlFT4 of 1.24 ng/dLFT3 of 2.14 pg/mLB12/folate nowprmo0f of 5.7%insulin 4.4 uU/mlTPO 124 IU/ml Raven Elena MD [address] [facility] [address], [place], [address], [facility] [employer] [facility] 10/24/2022 11:00:48 OBGyn Episode No OBEpisode recorded.
--- OUTSIDE RECORDS SUMMARY | 2024-09-29 18:42 | XMS_ITS | Encounter Summary ---
Author Organization [employer] Address 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[employer] Gender Identity Not on file Sexual Orientation Not on file documented as of this encounter Plan of Treatment Not on file documented as of this encounter Procedures Procedure Name Priority Date/Time Associated Diagnosis Comments HEMOGLOBIN AND HEMATOCRIT Routine 03/16/2006 5:38 AM CDT POC , URINE Routine 03/16/2006 5:38 AM CDT documented in this encounter Results * POC , URINE (03/16/2006 5:38 AM CDT) HCG QUAL URINE Negative Negative INTER FACE SYSTEM SPECIFIC GRAVITY UA 1.020 1.001 - 1.035 INTERFACE SYSTEM 03/16/2006 5:38 AM CDT us Howard Malik MD POINT OF CARE TESTING Final R esult INTERFACE SYSTEM Refer to clinic/hospital department * (ABNORMAL) HEMOGLOBIN AND HEMATOCRIT (03/16/2006 5:38 AM CDT) HEMOGLOBIN 15.3(H) 11.8 - 14.8 g/dL INTERFACE SYSTEM HEMATOCRIT 44.5(H) 35.5 - 44.0 % INTERFACE SYSTEM 03/16/2006 5:38 AM CDT us Howard Malik MD HEMATOLOGY ORDERABLES Final R esult INTERFACE SYSTEM Refer to clinic/hospital department documented in this encounter Visit Diagnoses Diagnosis Hypertrophy of nasal turbinates- Primary documented in this encounter Care Teams Telemarketing Fundraiser Relationship Specialty Start Date End Date Fredy Fisher MD [address] [facility] [address] [place] [id number] PCP - General Family Practice 06/07/23 documented as of this encounter
--- OUTSIDE RECORDS SUMMARY | 2024-09-29 18:42 | XMS_ITS | Referral Summary ---
Author Organization [facility] [place] [address] Address [address] [place] [id number] Care Team Providers Care Pet Caretaker Name Role Phone Fredy Fisher MD Primary Care Provider Allergies No known active allergies Medications dextroamphetami ne-amphetamine XR (ADDERALL XR) 30 mg 24 hr capsule TAKE 1 CAPSULE BY MOUTH EVERY DAY IN THE MORNING FOR 30 DAYS 4 Active IODINE ORAL Take by mouth Active ferrous sulfate 325 mg (65 mg of elemental iron) tablet Take 1 tablet (325 mg total) by mouth daily Active guaiFENesin-dex tromethorphan ER (MUCINEX DM) 600-30 mg tablet extended release 12 hr Take 1 tablet by mouth 2 times daily Active lysine 1,000 mg tablet Take 1,000 mg by mouth Active montelukast (SINGULAIR) 10 mg tablet Take 1 tablet (10 mg total) by mouth daily Active naproxen-pseudo ephedrine 220-120 mg tablet extended release 12 hr Take by mouth Active pantoprazole DR (PROTONIX) 40 mg EC tablet Take 1 tablet (40 mg total) by mouth daily Active spironolactone (ALDACTONE) 100 mg tablet Take 1 tablet (100 mg total) by mouth 2 (two) times a day Active cholecalciferol (VITAMIN D-3) 50,000 unit capsuleIndicati ons:Vitamin D deficiency Take 1 capsule (50,000 Units total) by mouth every 14 (fourteen) days 6 capsule 3 4 025 Active Synthroid 125 mcg tabletIndicatio ns:Hypothyroidi sm due to Sky's thyroiditis Take 1 tablet (125 mcg total) by mouth daily 90 tablet 3 4 025 Active tirzepatide, weight loss, (Zepbound) 7.5 mg/0.5 mL pen injector Inject 0.5 mL (7.5 mg total) under the skin every 7 days Active liothyronine (CYTOMEL) 5 mcg tabletIndicatio ns:Hypothyroidi sm due to Sky's thyroiditis TAKE 1 TABLET TWICE A DAY 180 tablet 3 5 Active liothyronine (CYTOMEL) 5 mcg tabletIndicatio ns:Hypothyroidi sm due to Sky's thyroiditis Take 1 tablet (5 mcg total) by mouth 2 (two) times a day 120 tablet 1 4 025 Discontinued Active Problems Problem Noted Date Diagnosed Date Thyroid nodule 03/19/2024 Assessment & Plan (03/19/2024 2:24 PM CDT): History of thyroid nodule approximately 3 cm status post FNA biopsy, 06/2021 , benign cytology repeat thyroid ultrasound in 03/2022 and 03/2023 - showed stable thyroid nodule No compressive symptoms Ordered follow-up thyroid ultrasound Pre-diabetes 09/10/2023 Assessment & Plan (03/19/2024 2:21 PM CDT): Improving Recent A1c 5.1 % Pt lost significant weight Stop metformin Assessment & Plan (09/10/2023 7:55 PM CDT): Counseled on healthy lifestyle habits Recommend to work on healthy fat loss goal Continue metformin XR for insulin resistance Vitamin D deficiency 09/10/2023 Assessment & Plan (03/19/2024 2:22 PM CDT): Continue vitamin-D replacement therapy Assessment & Plan (09/10/2023 7:55 PM CDT): Continue vitamin-D replacement therapy Morbid obesity with BMI of 40.0-44.9, adult 12/2023 Assessment & Plan (03/19/2024 2:20 PM CDT): Chronic, significant improvement , still above goal Patient currently on Zepbound 7.5 mg subQ weekly, tolerating well Advised to include resistance training exercises Assessment & Plan (09/10/2023 7:56 PM CDT): Counseled on healthy lifestyle habits Patient on Zepbound 2.5 mg subQ weekly 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 Assessment & Plan (03/19/2024 2:19 PM CDT): Chronic, stable Continue current levothyroxine and Cytomel supplementation Recheck thyroid function every 3 months further plans based on it Assessment & Plan (09/10/2023 7:55 PM CDT): Chronic, unknown status Continue current levothyroxine and Cytomel supplementation Recheck thyroid function and further plans based on it Social History Tobacco Use Types Packs/Day Years Used Date Smoking Tobacco: Some Days Cigarettes Vaping Smokeless Tobacco: Never Tobacco Cessation:Ready to Q uit: Not Asked; Counseling Given: Not Answered Personal Safety Answer Date Recorded Getting School Help Needed Not on file 07/18 Comments Unknown Sex and Gender Information Value Date Recorded Sex Assigned at Not on file Legal Sex Female 4:08 PM PHARMACY GRADUATE INTERN Gender Identity Not on file Sexual Orientation Not on file Last Filed Vital Signs Vital Sign Reading Time Taken Comments Blood Pressure 126/82 03/19/2024 11:13 AM CDT Pulse 102 03/19/2024 11:13 AM CDT Temperature - - Respiratory Rate 16 03/19/2024 11:13 AM CDT Oxygen Saturation - - Inhaled Oxygen Concentration - - Weight 117 kg (258 lb) 03/19/2024 11:13 AM CDT Height 170.2 cm (5' 7 ) 03/19/2024 11:13 AM CDT Body Mass Index 40.41 03/19/2024 11:13 AM CDT Plan of Treatment Not on file Procedures Procedure Name Priority Date/Time Associated Diagnosis Comments HM TSH Routine 07/31/2024 10:32 AM PHARMACY GRADUATE INTERN T4, FREE Routine 07/30/2024 T3, FREE Routine 07/30/2024 from Last 3 Months Results * HM TSH (07/31/2024 10:32 AM PHARMACY GRADUATE INTERN) Scribed TSH 0.10 0.36 - 3.74 mcU/mL Historical Provider HEALTH MAINTENANCE Edited Result - Final * T3, free (07/30/2024) Blood 07/30/2024 Impressions EXTERNAL LAB - 07/30/2024 2.23 Reference range 2.18-3.98 Historical Provider LAB BLOOD ORDERABLES Edit ed Result - Final EXTERNAL LAB * (ABNORMAL) T4, free (07/30/2024) SCRIBED T4, Free 1.13 0.76 - 1.46 mcg/dL EXTERNAL LAB Blood 07/30/2024 Historical Provider MD LAB BLOOD ORDERABLES Edit ed Result - Final EXTERNAL LAB from Last 3 Months Insurance [facility] ACCESS Care Teams Pet Caretaker Relationship Specialty Start Date End Date Fredy Fisher MD [address] [facility] [address] [place] [address] PCP - General Family Medicine 08/01/23
--- OUTSIDE RECORDS SUMMARY | 2024-09-29 18:42 | XMS_ITS | Clinical Summary ---
Author Organization [facility] Ign[address] phan [address] Address [address] [place] [address] Care Team Providers Care Sales Representative Printing Paper Name Role Phone Fredy Fisher MD Primary Care Provider [phone] Allergies No known active allergies Medications levothyroxine 125 mcg tablet Take 125 mcg by mouth daily in the morning. Active montelukast (SINGULAIR) 10 mg tablet Take 10 mg by mouth daily at bedtime. Active pantoprazole (PROTONIX) 40 mg Tablet, Delayed Release (E.C.) Take 40 mg by mouth daily. Active metFORMIN (GLUCOPHAGE) 500 mg tablet Take 500 mg by mouth 2 times daily with meals. Active amphetamine-dext roamphetamine (ADDERALL XR) 20 mg Extended Release 24 hour capsule Take 20 mg by mouth daily in the morning. Active cyanocobalamin 1,000 mcg Tablet Take 1,000 mcg by mouth daily. Active liothyronine (CYTOMEL) 25 mcg Tablet Take 25 mcg by mouth daily. Active ferrous sulfate 325 mg (65 mg iron) tablet Take 325 mg by mouth daily. Active ergocalciferol (VITAMIN D2) 50,000 unit capsule Take 50,000 Units by mouth. Active lysine 1,000 mg Tablet Take 1,000 mg by mouth. Active Naproxen Na-Pseudoephedri ne (Aleve-D Sinus and Cold) 220-120 mg Tablet Sustained Release 12HR Take by mouth. Active dextromethorphan -guaiFENesin (MUCINEX DM) 30-600 mg Tablet Sustained Release 12HR Take 1 Tablet by mouth every 12 hours. Active IODINE ORAL Take by mouth. Active Active Problems No known active problems Family History Medical History Relation Name Comments Leukemia Father Relation Name Status Comments Brother Alive Father Mother Alive Sister Alive Son Alive Social History Tobacco Use Types Packs/Day Years Used Date Smoking Tobacco: Former Cigarettes Q uit: 2013 Smokeless Tobacco: Never Alcohol Use Standard Drinks/Week Comments Yes 0 (1 standard drink = 0.6 oz pur e alcohol) occasional Comments Unknown Sex and Gender Information Value Date Recorded Sex Assigned at Not on file Legal Sex Female 3:30 AM OFFSET PRESS OPERATOR APPRENTICE Gender Identity Not on file Sexual Orientation Not on file Last Filed Vital Signs Vital Sign Reading Time Taken Comments Blood Pressure 148/93 06/07/2023 1:28 PM OFFSET PRESS OPERATOR APPRENTICE Pulse 91 06/07/2023 1:19 PM OFFSET PRESS OPERATOR APPRENTICE Temperature 35.8 C (96.4 F) 06/07/2023 1:19 PM OFFSET PRESS OPERATOR APPRENTICE Respiratory Rate 12 06/07/2023 1:19 PM OFFSET PRESS OPERATOR APPRENTICE Oxygen Saturation 97% 06/07/2023 1:19 PM OFFSET PRESS OPERATOR APPRENTICE Inhaled Oxygen Concentration - - Weight 141.1 kg (311 lb) 06/07/2023 1:19 PM OFFSET PRESS OPERATOR APPRENTICE Height 170.2 cm (5' 7 ) 06/07/2023 1:19 PM OFFSET PRESS OPERATOR APPRENTICE Body Mass Index 48.71 06/07/2023 1:19 PM OFFSET PRESS OPERATOR APPRENTICE Plan of Treatment Health Maintenance Due Date Last Done Comments DTAP/TDAP/TD VACCINES (1 - Tdap) 1998 HEPATITIS B VACCINES (1 of 3 - 19+ 3-dose series) 1998 HPV/Cotest (21-29) 2000 CERVICAL CANCER SCREENING 2009 HPV/Cotest (30-65) 2009 PAP SMEAR 2009 BREAST CANCER SCREENING 2019 INFLUENZA VACCINE (#1) 2024 COLORECTAL SCREENING 2024 Colorectal Cancer Screening 2024 FIT-DNA Q 3 years 2024 FIT/FOBT Q 1 year 2024 Flex Sig/CT Colonography Q 5 years 2024 HPV VACCINES Aged Out No longer eligi ble based on patient's age to complete this topic Insurance BCBS BLUE ACCESS/TRUE BLUE PPO BCBS BLUE ACCESS/TRUE BLUE PPO Care Teams Sales Representative Printing Paper Relationship Specialty Start Date End Date Fredy Fisher MD [address] [id number] PCP - General Family Practice 06/07/23
--- OUTSIDE RECORDS SUMMARY | 2024-09-29 18:42 | XMS_ITS | Continuity of Care Document ---
Author Organization [facility] Address [address] [place] [address] [address] [place] [address] Phone Care Team Providers Care Manager Of Patient Name Role Phone Maurice Lugo Unavailable Unavailable Procedures Procedure Date Eye Exam, New Patient Advance Directives Directive Yes / No Effective Date File Name No Information Encounters Encounter Description Practice Location Reason(s) For Visit Diagnoses Date Provider Providers Copied on Encounter [facility], [address] [place] [address] [address], [place], [place], [id number], [place] tel:[phone] [address] [facility] No Information [address] [facility] [address] , [address], [place], [address], [place]. tel:[phone] Family History Family Member Type Diagnosis Age At Onset No Information Payers Payer name Insurance type Covered green party ID Authoriza tion(s) [place] [id number] Social History Type Description Quantity Date Captured [...]
--- OUTSIDE RECORDS SUMMARY | 2024-09-29 18:42 | XMS_ITS | Clinical Summary ---
Author Organization [facility] [place] [address] Address [address] [place] [phone] Care Team Providers Care Operations Team Leader Name Role Phone Fredy Fisher MD Primary [...] function and further plans based on it Surgical History Surgery Date Site/Laterality Comments HYSTERECTOMY KNEE SURGERY TONSILLECTOMY SECTION Medical History Medical History Date Comments Excessive sweating Fatigue Frequency of urination Hearing loss Thyroid condition Joint pain Family History Medical History Relation Name Comments Leukemia Father Diabetes Paternal Grandmother Relation Name Status Comments Father Paternal Grandmother Social History Tobacco Use Types Packs/Day Years Used Date Smoking Tobacco: Some Days Cigarettes Vaping Smokeless Tobacco: Never Tobacco Cessation:Ready to Q uit: Not Asked; Counseling Given: Not Answered Personal Safety Answer Date Recorded Getting School Help Needed Not on file 07/18 Comments Unknown Sex and Gender Information Value Date Recorded Sex Assigned at Not on file Legal Sex Female 4:08 PM HOT ROLL LAMINATOR Gender Identity Not on file Sexual Orientation Not on file Obstetrics History Last Filed Vital Signs Vital Sign Reading [...] 03/19/2024 11:13 AM CDT Plan of Treatment Health Maintenance Due Date Last Done Comments Breast Cancer Screening-Mammogram 1979 Colon Cancer Screening-Colonoscopy 1979 Depression Screening 1979 Hepatitis C Screening 1979 DTaP/Tdap/Td Vaccine (1 - Tdap) 1990 Hepatitis B Screening 1997 Regular Well Visit/Exam 18-64 1997 Pneumococcal vaccine <65 (1 of 2 - PCV) 1998 Influenza Vaccine (Season Ended) 2025 HPV Vaccines Aged Out No longer eligi ble based on patient's age to complete this topic Procedures Procedure Name Priority Date/Time Associated Diagnosis Comments TSH Routine 07/31/2024 10:32 AM HOT ROLL LAMINATOR T4, FREE Routine 07/30/2024 T3, FREE Routine 07/30/2024 from Last 3 Months Results * TSH (07/31/2024 10:32 AM HOT ROLL LAMINATOR) Scribed TSH 0.10 0.36 - 3.74 mcU/mL Result [facility] Historical Provider [facility] MAINTENANCE Edited Result - Final * T3, free (07/30/2024) Blood 07/30/2024 Impressions EXTERNAL LAB - 07/30/2024 2.23 Reference range 2.18-3.98 Historical Provider LAB BLOOD ORDERABLES Edit ed Result - Final EXTERNAL LAB * (ABNORMAL) T4, free (07/30/2024) SCRIBED T4, Free 1.13 0.76 - 1.46 mcg/dL EXTERNAL LAB Blood 07/30/2024 Historical Provider LAB BLOOD ORDERABLES Edit ed Result - Final EXTERNAL LAB from Last 3 Months Insurance [employer] ACCESS Member Subscriber Plan / Payer (Ef fective 2018-Present) Name:Chanda Carrion Relation to Subscriber:Self Name:Chanda Carrion Payer ID:[id number] (NAIC) Type: ALLIANCE Address: [facility] [id number] [id number] Care Teams Operations Team Leader Relationship Specialty Start Date End Date Fredy Fisher MD [address] [facility] [address] [place] [address] PCP - General Family Medicine 08/01/23
--- NOTE | 2024-09-29 18:44 | ED_ITS ---
HPI - Neck Pain/Injury General Chief Complaint: Neck Pain/Injury Stated Complaint: neck pain Time Seen by Provider: 09/29/24 18:44 Source: patient Mode of arrival: ambulatory Limitations: no limitations History of Present Illness HPI Narrative: Patient is a 44-year-old female with known cervical spine herniated discs which have been not a problem for a few years. She was doing some moving a furniture and ritchie over the past week and has sustained a right neck and right shoulder and right arm sharp pain. Unclear initial reason for her cervical herniated discs per the patient. She sees a neurologist. MD complaint: neck pain Onset (ago): day(s) ( Five) Place: home Radiation: occiput, right shoulder and right upper extremity Severity: moderate Severity scale (1-10): 7 Quality: sharp Duration: constant Relieving factors: none Exacerbating factors: movement of extremity and movement of neck Context: lifting Associated symptoms: none Treatments prior to arrival: acetaminophen and ibuprofen Related Data Home Medications ?Medication ?Instructions ?Recorded ?Confirmed ?Last Taken ?Type Mucinex DM 1 tab-cap BYMOUTH DAILY PRN 01/20/21 09/25/24 Unknown History Congestion dextroamphetamine-amphetamine 30 30 mg PO DAILY 03/01/22 09/25/24 Unknown History mg tablet (Adderall) ergocalciferol (vitamin D2) 1,250 50,000 unit PO MONTHLY 09/23/22 09/25/24 Unknown History mcg (50,000 unit) capsule ferrous sulfate 325 mg (65 mg 325 mg PO DAILY 09/23/22 09/25/24 Unknown History iron) tablet,delayed release Thyroid Suport w/Iodine BYMOUTH 02/21/23 09/25/24 Unknown History levothyroxine 125 mcg tablet 125 mcg PO DAILY 02/21/23 09/25/24 Unknown History (Synthroid) Allergies Allergy/AdvReac Type Severity Reaction Status Date / Time No Known Allergies Allergy Verified 09/29/24 18:43 Review of Systems Review of Systems: All systems reviewed & are unremarkable except as noted in HPI and below Constitutional: Constitutional: Reports no additional constitutional complaints Eyes: Eyes: Reports no additional eye complaints ENT: Reports system reviewed and no additional complaints, except as documented Cardiovascular: Cardiovascular: Reports no additional cardiovascular complaints Respiratory: Respiratory: Reports no additional respiratory complaints Gastrointestinal: Gastrointestinal: Reports no additional gastrointestinal complaints Genitourinary: Genitourinary: Reports no additional female genitourinary complaints Musculoskeletal: Musculoskeletal: Reports no additional musculoskeletal complaints Integumentary/Breasts: Skin/Breast: Reports system reviewed and no additional complaints, except as docu Neurologic: Reports system reviewed and no additional complaints, except as documented Psychiatric: Psychiatric: Reports no additional psychiatric complaints Endocrine: Endocrine: Reports no additional endocrine complaints Hematologic/Lymphatic: Hematologic/Lymphatic: Reports no additional hematologic/lymphatic complaints Allergic/Immunologic: Allergic/Immunologic: Reports no additional allergic/immunologic complaints [facility] Past Medical History Medical History Obesity Morbid obesity Prediabetes 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 Screening mammogram, encounter for Vaginal cuff dehiscence 02/27/12 repair of dehiscence Sleep apnea Anxiety Cervical radiculopathy Rectal bleeding Foot fracture, left Fibroids Deviated septum GERD (gastroesophageal reflux disease) Surgical History Surgical History History of robot-assisted laparoscopic hysterectomy 12/29/11 History of hysteroscopy 06/21/06 hscope d&c 10/04/10 hscope d&c/iud removal History of tonsillectomy and adenoidectomy 11/04/03 History of colonoscopy 11/30/01 H/O nasal septoplasty 01/03/15 History of 06/25/03 primary c/s--macrosomia/failed induction History of laparoscopy 06/19/00 dx lscope--adhesiolysis 01/23/02 dx lscope--extensive adhesiolysis History of arthroscopy of both knees 03/05/08 double knee surgery History of nasal surgery Family History Family History Mother Patient's mother is in good health Father Patient's father is Leukemia Grandparent Family history of malignant neoplasm of breast maternal grandmother great grandmother great uncle Diabetes mellitus paternal grandmother Cerebrovascular accident maternal grandfather Heart disease maternal grandfather paternal grandfather Social History Social History Smoking packs per day: 1 Smoking cigarettes per day: 20.0 Years smoked: 20 Smoking pack-years: 20.00 Smoking status: Former smoker (Vap) Tobacco type: cigarettes and e-cigarettes/vaping Second hand tobacco smoke exposure: No Additional smoking assessment comments: vapes currently Alcohol intake: current Drinks per week: 4 Substance use: never Substance use type: does not use Do You Feel Safe in your Home?: Yes Lack of Transportation: No Lack of Food: Never True Current Housing: I Have Housing Concerned About Future Housing: No Difficulty Paying Gas/Electric Bills: No Difficulty Paying for Meds: No Currently Unemployed: No Education: Associate Degree Difficulty w/ Childcare or Family Care: No Living arrangements: other Additional living arrangements comments: Occupation/Education: occupation 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 Gender identity (if verbalized by the patient): Female Sexual Orientation (if Verbalized by the Patient): Straight or Heterosexual Spiritual care concerns: No Exam Const: General: healthy appearing Nutritional Appearance: well nourished Orientation/consciousness: patient oriented x3 Limitations: no limitations HENMT: Head: normal to inspection Ears: external ears normal Face/Nose/Sinus: Normal external nose present Eyes: Conjunctivae: conjunctivae normal Pupils: Equal, round and reactive pupils present EOM: EOMs intact bilaterally Neck: Neck: normal visual inspection Chest: Chest palpation & inspection: normal inspection of the chest Resp: Effort & Inspection: normal respiratory effort and not labored Auscultation: clear to auscultation bilaterally and no crackles Cardio: Rate: regular rate Rhythm: regular rhythm Heart sounds: no murmurs GI: Inspection: non-distended GI Palp: Yes Soft to palpation and No Tenderness to palpation present (GI) Auscultation: normal bowel sounds : General: Yes bladder normal to palpation Back/Spine/Pelvis: Back: no CVA tenderness Skin: General skin exam: normal color Rashes: no rashes Wounds: no wounds Neuro: General: patient oriented x3 Cranial nerves: Yes Nystagmus not present Speech: normal speech Gait exam (Neuro): Normal gait present Extrem: General: normal to inspection Psych: Mental Status: mental status grossly normal Affect: normal affect Attitude: cooperative Course Vital Signs Vital signs: Vital Signs Temperature 36.5 C 09/29/24 18:42 Pulse Rate 91 09/29/24 18:42 Respiratory Rate 20 09/29/24 18:42 Blood Pressure 128/92 H 09/29/24 18:42 Pulse Oximetry 100 09/29/24 18:42 Oxygen Delivery Room Air 09/29/24 18:42 Temperature 36.5 C 09/29/24 18:42 Pulse Rate 91 09/29/24 18:42 Respiratory Rate 20 09/29/24 18:42 Blood Pressure 128/92 H 09/29/24 18:42 Pulse Oximetry 100 09/29/24 18:42 Oxygen Delivery Room Air 09/29/24 18:42 MDM - Neck Pain/Injury MDM Narrative Medical decision making narrative: patient is a 44-year-old female with known cervical spine herniated discs having acute onset of pain in the right neck and right shoulder and right upper arm down to the elbow. We will get CT scan of the cervical spine. We will give triple treatment for pain control and relief of symptoms. Imaging Data Attestation: I personally reviewed and interpreted this imaging study as follows: Radiologist's impression: CT cervical spine shows IMPRESSION: No acute osseous abnormality cervical spine. Multilevel facet joint disease in the upper thoracic area. Nodule in the left lobe of the thyroid. Ultrasound evaluation advised. Discharge Plan Discharge Clinical Impression: Radiculopathy of cervical spine, Thyroid nodule Patient Disposition: Home Condition: Stable Instructions: Cervical Radiculopathy (ED) Additional Instructions: please follow-up with the primary doctor in the next week. The CT scan shows that there was a thyroid nodule as an incidental finding. Have the primary doctor get an ultrasound of your thyroid in the next month. Patient Language: South African Prescriptions: New hydrocodone-acetaminophen 5-325 mg tablet 1 tablet PO Q8H PRN (Reason: pain) Qty: 20 0RF Rx Instructions: 1-2 tabs per dose cyclobenzaprine 10 mg tablet 10 mg PO TID PRN (Reason: muscle spasm) Qty: 20 0RF prednisone 20 mg tablet 40 mg PO DAILY 3 Days Qty: 6 0RF No Action ferrous sulfate 325 mg (65 mg iron) tablet,delayed release (DR/EC) 325 mg PO DAILY ergocalciferol (vitamin D2) 1,250 mcg (50,000 unit) capsule 50,000 unit PO MONTHLY dextroamphetamine-amphetamine [Adderall] 30 mg tablet 30 mg PO DAILY cyclobenzaprine 10 mg tablet 10 mg PO QHS PRN (Reason: muscle spasm) Qty: 30 0RF levothyroxine [Synthroid] 125 mcg tablet 125 mcg PO DAILY Thyroid Suport w/Iodine BYMOUTH naproxen 500 mg tablet 500 mg PO BID PRN (Reason: pain) Qty: 180 1RF Rx Instructions: take with food tirzepatide (weight loss) 10 mg/0.5 mL pen injector 10 mg subcut WEEKLY Qty: 6 1RF Mucinex DM capsule 1 tab-cap BYMOUTH DAILY PRN (Reason: Congestion) metformin 500 mg tablet 500 mg PO BID 90 Days Qty: 180 1RF liothyronine 5 mcg tablet 10 mcg PO DAILY 90 Days Qty: 180 1RF montelukast [Singulair] 10 mg tablet 10 mg PO QHS Qty: 90 2RF spironolactone 100 mg tablet 100 mg PO BID Qty: 180 3RF pantoprazole 40 mg tablet,delayed release (DR/EC) See Rx Instructions .ROUTE .COMPLEX Qty: 90 1RF Dose Instruction: TAKE 1 TABLET BY MOUTH EVERY MORNING Rx Instructions: TAKE 1 TABLET BY MOUTH EVERY MORNING Follow-up/Referrals: UNKNOWN,DOCTOR [Non-Staff] - Time of Disposition: 19:30
--- NOTE | 2024-09-29 19:05 | PC.NURSE ---
Patient reports she has someone to drive her home after medication administration.
--- NOTE | 2024-09-29 19:07 | PC.NURSE ---
patient back in room from radiology
[2024-09-29] MEDS: methylPREDNISolone SOD SUCC 125 MG VIAL IM (19:08)
[2024-09-29] MEDS: HYDROcodone/acetaminophen (*CRX) 10-325 MG TABLET 1 TAB PO (19:08)
[2024-09-29] MEDS: CYCLOBENZAPRINE HCL 10 MG TABLET PO (19:08)
--- OUTSIDE RECORDS SUMMARY | 2024-09-29 19:15 | XMS_ITS | Clinical Summary ---
Author Organization [facility] [address] [place] Address [address] [place] [address] Care Team Providers Care Wire Bender Hand Name Role Phone Fredy Fisher MD Primary [...] on file Legal Sex Female 4:08 PM SCRAP IRON CUTTER Gender Identity Not on file Sexual Orientation [...] Diagnosis Comments TSH Routine 07/31/2024 10:32 AM SCRAP IRON CUTTER T4, FREE Routine 07/30/2024 T3, FREE Routine 07/30/2024 from Last 3 Months Results * TSH (07/31/2024 10:32 AM SCRAP IRON CUTTER) Scribed TSH 0.10 0.36 - 3.74 mcU/mL Result [facility] Historical Provider [facility] Edited Result - Final * T3, [...] Carrion Payer ID:[id number] (NAIC) Type: ALLIANCE Address: [facility] [id number] [place] [id number] Care Teams Wire Bender Hand Relationship Specialty Start Date End Date Fredy Fisher MD [address] [facility] [address] [place] [address] PCP - General Family Medicine 08/01/23
--- OUTSIDE RECORDS SUMMARY | 2024-09-29 19:15 | XMS_ITS | Encounter Summary ---
Author Organization [employer] Address [address] [place] [address] Care Team Providers Care Bobbin Collector Name Role Phone Fredy Fisher MD Primary Care Provider [phone] Encounter Details Date Type Department Care Team (Latest Contact Info) Description 11/10/2005 Outpatient [facility] [employer] [facility] [address] [facility] [place] [place] [address] Howard Malik MD [address] [place] [phone] Unspecified Sinusitis (Chronic) (Primary Dx) Social History Tobacco Use Types Packs/Day Years Used Date Smoking Tobacco: Never Assessed Comments Unknown Sex and Gender Information Value Date Recorded Sex Assigned at Not on file 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
--- OUTSIDE RECORDS SUMMARY | 2024-09-29 19:15 | XMS_ITS | Clinical Summary ---
Author Organization [facility] Ignacio phan Haydersilvio Address [address] [place] [address] Care Team Providers Care Charter Pilot Name Role Phone Fredy Fisher MD Primary Care Provider [phone] Allergies No known active allergies Medications levothyroxine [...] on file Legal Sex Female 3:30 AM DIVEMASTER Gender Identity Not on file Sexual Orientation Not on file Last Filed Vital Signs Vital Sign Reading Time Taken Comments Blood Pressure 148/93 06/07/2023 1:28 PM DIVEMASTER Pulse 91 06/07/2023 1:19 PM DIVEMASTER Temperature 35.8 C (96.4 F) 06/07/2023 1:19 PM DIVEMASTER Respiratory Rate 12 06/07/2023 1:19 PM DIVEMASTER Oxygen Saturation 97% 06/07/2023 1:19 PM DIVEMASTER Inhaled Oxygen Concentration - - Weight 141.1 kg (311 lb) 06/07/2023 1:19 PM DIVEMASTER Height 170.2 cm (5' 7 ) 06/07/2023 1:19 PM DIVEMASTER Body Mass Index 48.71 06/07/2023 1:19 PM DIVEMASTER Plan of Treatment Health Maintenance Due Date [...] BCBS BLUE ACCESS/TRUE BLUE PPO Care Teams Charter Pilot Relationship Specialty Start Date End Date Fredy Fisher MD [address] [phone] PCP - General Family Practice 06/07/23
--- OUTSIDE RECORDS SUMMARY | 2024-09-29 19:15 | XMS_ITS | Continuity of Care Document ---
Author Organization [facility] Address [address] [place] [address] [address] [place] [address] Phone Care Team Providers Care Dinkey Engine Mechanic Name Role Phone Maurice Lugo Unavailable Unavailable Procedures Procedure Date Eye Exam, New Patient Advance Directives Directive Yes / No Effective Date File Name No Information Encounters Encounter Description Practice Location Reason(s) For Visit Diagnoses Date Provider Providers Copied on Encounter [facility], [address] [place] [address] [address], [place], [place], [id number], [place] tel:[phone] [facility] No Information 1-[address]. [address] [facility] [address] , [address], [place], [address], [place]. tel:[phone] Family History Family Member Type Diagnosis Age At Onset No Information Payers Payer name Insurance type Covered republican ID Authoriza tion(s) BCBS [place] Out Of State [id number] Social History Type Description Quantity Date Captured [...]
--- OUTSIDE RECORDS SUMMARY | 2024-09-29 19:15 | XMS_ITS | Encounter Summary ---
Author Organization [employer] Address 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 [address] [place] [address] PCP - General Family Practice 06/07/23 documented as of this encounter
--- OUTSIDE RECORDS SUMMARY | 2024-09-29 19:15 | XMS_ITS | Referral Summary ---
Author Organization [facility] [address] [place] Address [address] [place] [address] Care Team Providers Care Copy Supervisor Name Role Phone Fredy Fisher MD Primary [...] on file Legal Sex Female 4:08 PM BRANDING MACHINE TENDER Gender Identity Not on file Sexual Orientation [...] Comments HM TSH Routine 07/31/2024 10:32 AM BRANDING MACHINE TENDER T4, FREE Routine 07/30/2024 T3, FREE Routine 07/30/2024 from Last 3 Months Results * HM TSH (07/31/2024 10:32 AM BRANDING MACHINE TENDER) Scribed TSH 0.10 0.36 - 3.74 mcU/mL [...] EXTERNAL LAB from Last 3 Months Insurance [facility] ACCESS Care Teams Copy Supervisor Relationship Specialty Start Date End Date Fredy Fisher MD [address] [facility] [address] [place] [address] PCP - General Family Medicine 08/01/23
== END 2024-09-29 19:55 | disposition home or self-care (01) ==
PROVIDERS: Emergency Provider Emergency Medicine; PCP Family Medicine
DX: M54.12 Radiculopathy, cervical region (principal); E04.1 Nontoxic single thyroid nodule; E03.9 Hypothyroidism, unspecified; Z87.891 Personal history of nicotine dependence
CPT/HCPCS: 72125; 96372; 99284; A9270; J2919

== ENCOUNTER 2025-02-26 07:22 | Outpatient (CLI) | payer BC, SELFPAY ==
--- OUTSIDE RECORDS SUMMARY | 2007-09-24 04:28 | XMS_ITS | Continuity of Care Document ---
Author Organization [facility] Address [address] [place] [address] [address] [place] [address] Phone Care Team Providers Care Dog License Officer Supervisor Name Role Phone Maurice Lugo Unavailable Unavailable Procedures Procedure Date Eye Exam, New Patient Advance Directives Directive Yes / No Effective Date File Name No Information Encounters Encounter Description Practice Location Reason(s) For Visit Diagnoses Date Provider Providers Copied on Encounter [facility], [address] [place] [address] [address], [place], [place], [id number], [place] tel:[phone] [facility] No Information [address]. [address] [facility] [address] , [address], [place], [address], [place]. tel:[phone] Family History Family Member Type Diagnosis Age At Onset No Information Payers Payer name Insurance type Covered democrat ID Authoriza tion(s) [employer] [place] [id number] Social History Type Description Quantity Date Captured Comments Sex Female Smoking Status No Information Chief Complaint And Reason For Visit No Information Reason For Referral Reason For Referral No Information History Of Present Illness Encounter Date Complaint History Of Prese nt Illness No Information Functional Status Date Functional Assessmen t No Information Instructions Date Instruction Additional Infor mation No Information Assessments Type Assessment Date No Information Patient Care Teams Name Effective Dates (start - stop) Status Members No Information
--- OUTSIDE RECORDS SUMMARY | 2025-01-13 11:45 | XMS_ITS ---
Author Organization [facility] Address [address] [facility] [address] [facility] [address] [place] [address] Care Team Providers Care Plasterer Helper Name Role Phone Natalia JEAN BAPTISTE, Fredy Primary Care Provider Redd Eastman Unavailable [phone] REASON FOR VISIT 4 month fu Social History Sex Assigned At : Social History Observation Description Sex Assigned At Female Encounters Encounter Location Date Provider Diagnosis [facility] [address] [facility] [address] [facility] [address] [place] [address] 01/13/2025 Redd Aguillon Plan Of Treatment Next Appt Details Provider Name:Redd meek, 04/04/2025 08:45:00 AM, [address], [facility] [address], [place], [address], Progress Notes * ALEXIS PACE LDOB:1980 (44 yo F)Acc No.[id number]:01/13/2025 Patient: Amos HERRERAALEXIS Provider: TAMAR GAMBLE :1980 A ge:44 Y S ex:Female Date:01/13/2025 Address:[address] [place], [place] [phone] Pcp:Fredy Fisher MD Subjective: * Chief Complaints: * 4 month fu Billing Information: * Procedure Codes: * Electronic signature of TAMAR Durant on 02/26/2025 at 07:34 AM CDT Sign off status: Pending * Provider: TAMAR GAMBLE Date: 0 01/13/2025 Generated for Noemi gaviria/Wood/Mannie on: 0 02/26/2025 07:34 AM CDT
--- NOTE | 2025-02-26 | CONSULT_PTH ---
PATIENT: Chanda Carrion LOC: [facility]#:[id number] AGE/SX: 44/F ROOM: RE02/26/[address]: Fredy Fisher MD : 1980 BED: DIS: 02/26/2025 SPEC #: [id number] RECD: 02/26/25 08:14 STATUS: MARIUSZ REGemma #: [id number] FELIX: 02/26/25 00:[address]: Fredy Fisher DEPT: [facility] Consult RECD BY: Didi Johnson MLT, ([facility]) Tissues: A - Peripheral Smear Procedures: Hematology Consult
--- OUTSIDE RECORDS SUMMARY | 2025-02-26 07:33 | XMS_ITS | Data Portability ---
Author Organization [facility] [employer], Main Office Address [address] [place] [address] Assessment No assessment recorded. Plan of Treatment Reminders Order Date Submit Date Provider Last Modified By Organization Details Last Modified Time Details Appointments None recorded. Lab dhea-sulfat e, serum 2022 023 [facility], [address] [place], [address], 3 12:44:30 testosteron e, free + total, serum 2022 023 [facility], [address] [place], [address], 3 12:44:29 insulin, serum 2022 023 [facility], [address] [place], [address], 3 09:49:57 T3, free, serum or plasma [id number], [address] [place], [address], 3 09:58:41 TSH + free T4, serum 2022 023 [facility], [facility] [place], [address], 3 12:25:25 CMP, serum or plasma 2022 023 [facility], [address] [place], [address], 3 12:23:22 thyroid peroxidase (tpo) Ab, serum 2022 023 [facility], [address] [place], [address], 3 17:10:58 Referral None recorded. Procedures None recorded. Surgeries None recorded. Imaging None recorded. Medication Orders spironolact one 50 mg tablet [address]/Pharmacy #[id number], [address] [place], [address], 3 10:56:27 liothyronin e 5 mcg tablet 2022 023 [facility][id number], [address] [place], [address], 3 09:57:00 Patient TargetsNo targets recorded. Patient InstructionsNo instructions recorded. Reason for Referral None Reported. Results Created Date Observation Date Name Description Value Unit Range Abnormal Flag Note LastModifiedBy Organization Detail LastModifiedTime 02/03/20 21 02/02/2021 MAMMO , scree deandre, digit al, bilat eral No observ ation record ed. [id number] [facility]) [address] [place], [address], 08/03/2022 06:20:00 03/17/20 22 03/17/2022 [place], thyro id No observ ation record ed. [id number] [facility] [address] [place], [address], 08/03/2022 06:20:00 Result Notes None recorded. Problems Name Problem SNOMED Code Status Onset Date Resolution Date Notes Provider Name and Address Organization Details Recorded Time Vaginal discharge 801667838 Active Not Available [facility] 3 03:36:30 Fibrocysti c disease of breast 11747519 Active Not Available [facility] 3 03:36:30 Closed fracture of cuneiform bone of foot 42310948 Active Not Available [facility] 3 03:36:30 Sprain of foot 46350068 Active Not Available [facility] 3 03:36:30 Sensorineu ral hearing loss of bilateral ears 001131996 Active 2022 Not Available [facility] 3 03:36:30 Bilateral tinnitus 0094427879801 Active 2022 Not Available [facility] 3 03:36:30 Hypothyroi dism 24029172 Active 2022 Not Available [facility] 3 03:36:30 Polycystic ovary syndrome 800705361 Active 2022 Not Available [facility] 3 03:36:30 Problem Notes None recorded. Procedures Surgical History Date Name Laterality Status Provider Name and Address Organization Details Recorded Time 02/03/20 21 Most Recent Mammogram completed Not Available [facility] 08/03/2022 06:12:02 01/04/20 15 ENT Surgery completed Not Available [facility] 08/04/19 06:12:03 02/27/20 12 DRIVER LICENSE TECHNICIAN Surgery completed Not Available [facility] 08/04/19 06:12:03 12/29/19 12 DRIVER LICENSE TECHNICIAN Surgery completed Not Available [facility] 08/04/19 06:12:03 11/17/19 12 Date of Last Pap Smear completed Not Available [facility] 08/03/2022 06:12:02 10/15/19 11 DRIVER LICENSE TECHNICIAN Surgery completed Not Available [facility] 08/04/19 06:12:03 03/05/20 08 Orthopedic Surgery completed Not Available [facility] 08/03/2022 06:12:03 06/11/19 07 DRIVER LICENSE TECHNICIAN Surgery completed Not Available [facility] 08/04/19 06:12:03 11/04/19 04 tonsilectomy/ad enoids completed Not Available [facility] 08/03/2022 06:12:03 06/28/19 04 section completed Not Available [facility] 08/03/2022 06:12:03 01/24/20 02 DRIVER LICENSE TECHNICIAN Surgery completed Not Available [facility] 08/04/19 06:12:03 12/01/19 02 Colonoscopy completed Not Available [facility] 08/04/19 06:12:03 06/19/19 DRIVER LICENSE TECHNICIAN Surgery completed Not Available [facility] 08/04/19 06:12:03 Imaging Results None recorded. Procedure Notes None recorded. Medical Equipment None [...] 07/27/2022 46 kg/m2 170.18 cm 97.8 [degF] 857565 g Not Available [facility] 08/03/2022 06:15:03 Date Recorded Body mass index (BMI) Body height Body weight Systolic And Diastolic Provider Name and Address Organization Details Last Updated DateTime 09/28/2020 48.2 kg/m2 170.18 cm 394352.45 g 124/80 mm[Hg] Not Available [facility] 08/03/2022 06:15:02 Date Recorded Body height Body mass index (BMI) Body weight Body temperature Respiratory rate Heart rate Systolic And Diastolic Provider Name and Address Organization Details Last Updated DateTime 3 170.18 cm 46 kg/m2 696013. 16 g 97.6 [degF] 18 /min 88 /min 128/86 mm[Hg] LAUREN Mcdaniels [facility] [employer] 3 09:41:30 Date Recorded Body mass index (BMI) Body height Oxygen saturation Oxygen saturation in Arterial blood by Pulse oximetry Heart rate Body temperature Body weight Systolic And Diastolic Provider Name and Address Organization Details Last Updated DateTime 2 46.9 kg/m2 170.18 cm 99 % 99 % 89 /min 97.2 [degF] 609459. 56 g 120/90 mm[Hg] Not Available [facility] 3 06:15:02 Date Recorded Body mass index (BMI) Body height Oxygen saturation Oxygen saturation in Arterial blood by Pulse oximetry Heart rate Body temperature Body weight Systolic And Diastolic Provider Name and Address Organization Details Last Updated DateTime 2 47.8 kg/m2 170.18 cm 98 % 98 % 81 /min 97.7 [degF] 356309. 67 g 130/85 mm[Hg] Not Available [facility] 3 06:15:02 Social History Question Answer Notes LastModified by Organizat ion Details LastModified Time Tobacco Smoking Status Former Smoker 7 years ago [email or web address] collins [facility] [employer] 10/24/2022 09:34:04 What Is Your Level Of Caffeine Consumption? Occasional [id number] Information not available 08/03/2022 Which Illicit Or Recreational Drugs Have You Used? No [email or web address] Information not available 10/24/2022 Sex: Unknown Functional Status Question Answer Note LastModified by Organizat ion Details LastModified Time What is your level of alcohol consumption? Occasional [id number] Information not available 08/03/2022 Do you or have you ever used smokeless tobacco? Never used smokeless tobacco [id number] Information not available 08/03/2022 Do you or have you ever used e-cigarettes or vape? Current user of electronic cigarettes [email or web address] Information not available 10/24/2022 What is your exercise level? Occasional [id number] Information not available 08/03/2022 Mental Status None recorded. Family History Relationship Description Onset Age of this Age Resolved Age Notes LastModified by Organization Details LastModified Time Paternal Grandmother Diabetes mellitus [id number] Not available 08/03/2022 06:12:05 Paternal Grandmother Malignant tumor of breast [email or web address] Not available 10/24 09:34:03 Maternal Grandfather Cerebrovascu lar accident [email or web address] Not available 09:34:03 Maternal Grandfather Heart disease [id number] Not available 08/03/2022 06:12:05 Paternal Grandfather Heart disease [id number] Not available 08/03/2022 06:12:05 Father Leukemia [email or web address] Not availab le 10/24/2022 09:34:03 Notes:great grandmother [...] Diagnosis SNOMED-CT Code Diagnosis ICD10 Code Diagnosis IMO Codes Diagnosis Note [id number] S_Histor ic_[facility]way _ATHENA_M IGRATION_ DEFAULT_1 _1 , 09/28/2020 00:00:00 09/28/2020 10:05:55 [id number] Raven Elena MD [facility] [place] [address] [place] [address] 03/11/2022 00:00:00 03/11/2022 09:56:53 [id number] Raven Elena MD [facility] [place] [address] [place] [address] 04/19/2022 00:00:00 04/19/2022 16:15:06 [id number] Juan Jose Peter MD [facility] [place] [address] [place] [address] 07/27/2022 00:00:00 07/27/2022 16:37:37 [id number] Raven Elena MD [facility] [place] [place] [address] [place] [address] 10/24/2022 09:29:43 10/24/2022 10:05:44 Hypothyroidism 98657154 E03.9 TSH and FT4 in range- continue [...] and 30% traditiona l. Polycystic ovary syndrome 985049004 E28.2 WIll trial on spironolac tone 50 [...] informatio n in the electronic health record, dirken chelsiey interpreti ng results and communicat ing results to the patient. RTC in 3-4 months. Patient was provided a handwritte n lab order which contains our fax number. If she chooses to go outside of the [facility] system to obtain labwork she was [...] Recorded Advance Directives Directive None Recorded Payers Insurance Date Sequence Insurance Name Policy Number Policy Lopez Covered Member ID Lopez Member ID Guarantor Name 01/26/2023 1 [place] [id number] Chanda Carrion [id number] Chanda Carrion Notes Date Note Type Note Provider Name and Address Organization Details Recorded Time 10/24/2022 text/html ROS as noted in the HPI 42 yo female comes in for follow up in management of [...] uIU/mlFT4 of 1.24 ng/dLFT3 of 2.14 pg/mLB12/folate dwsjoxy7t of 5.7%insulin 4.4 uU/mlTPO 124 IU/ml Raven Elena MD [address] [facility] [address], [place], [address], [facility] [employer] [facility] 10/24/2022 11:00:48 OBGyn Episode No OBEpisode recorded.
--- OUTSIDE RECORDS SUMMARY | 2025-02-26 07:35 | XMS_ITS | Encounter Summary ---
Author Organization [employer] Address 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
--- OUTSIDE RECORDS SUMMARY | 2025-02-26 07:35 | XMS_ITS | Clinical Summary ---
Author Organization [facility] Ignacio phan Haydersilvio Address [address] [place] [address] Care Team Providers Care Cattle Alley Worker Name Role Phone Fredy Fisher MD Primary Care Provider [phone] Allergies No known active allergies Medications levothyroxine [...] on file Legal Sex Female 3:30 AM JAVA FRONT END WEB DEVELOPER Gender Identity Not on file Sexual Orientation Not on file Last Filed Vital Signs Vital Sign Reading Time Taken Comments Blood Pressure 148/93 06/07/2023 1:28 PM JAVA FRONT END WEB DEVELOPER Pulse 91 06/07/2023 1:19 PM JAVA FRONT END WEB DEVELOPER Temperature 35.8 C (96.4 F) 06/07/2023 1:19 PM JAVA FRONT END WEB DEVELOPER Respiratory Rate 12 06/07/2023 1:19 PM JAVA FRONT END WEB DEVELOPER Oxygen Saturation 97% 06/07/2023 1:19 PM JAVA FRONT END WEB DEVELOPER Inhaled Oxygen Concentration - - Weight 141.1 kg (311 lb) 06/07/2023 1:19 PM JAVA FRONT END WEB DEVELOPER Height 170.2 cm (5' 7) 06/07/2023 1:19 PM JAVA FRONT END WEB DEVELOPER Body Mass Index 48.71 06/07/2023 1:19 PM JAVA FRONT END WEB DEVELOPER Plan of Treatment Health Maintenance Due Date Last Done Comments DTAP/TDAP/TD VACCINES (1 - Tdap) 1998 HEPATITIS B VACCINES (1 of 3 - 19+ 3-dose series) 10/1997 HPV/Cotest (21-29) 2000 HPV VACCINES (1 - 3-dose SCDM series) 2006 CERVICAL CANCER SCREENING 2009 HPV/Cotest (30-65) 2009 PAP SMEAR 2009 BREAST CANCER SCREENING 2019 COLORECTAL SCREENING 2024 Colorectal Cancer Screening 2024 FIT-DNA Q 3 years 2024 FIT/FOBT Q 1 year 2024 Flex Sig/CT Colonography Q 5 years 2024 INFLUENZA VACCINE (#1) 2025 Insurance BCBS BLUE ACCESS/TRUE BLUE PPO BCBS BLUE ACCESS/TRUE BLUE PPO Care Teams Cattle Alley Worker Relationship Specialty Start Date End Date Fredy Fisher MD [address] [id number] PCP - General Family Practice 06/07/23
--- OUTSIDE RECORDS SUMMARY | 2025-02-26 07:35 | XMS_ITS | Encounter Summary ---
Author Organization [employer] Address [address] [place] [address] Care Team Providers Care Life Manager Name Role Phone Fredy Fisher MD Primary Care Provider [phone] Encounter Details Date Type Department Care Team (Latest Contact Info) Description 11/10/2005 Outpatient [facility] [employer] [facility] [address] [facility] [place] [address] [place] [address] Howard Malik MD [address] [place] [id number] Unspecified Sinusitis (Chronic) (Primary Dx) Social History Tobacco Use Types Packs/Day Years Used Date Smoking Tobacco: Never Assessed Comments Unknown Sex and Gender Information Value Date Recorded Sex Assigned at Not on file Legal Sex Female 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
--- OUTSIDE RECORDS SUMMARY | 2025-02-26 07:35 | XMS_ITS | Clinical Summary ---
Author Organization [facility] [address] Address [address] [place] [address] Care Team Providers Care Sql Architect Name Role Phone Fredy Fisher MD Primary Care Provider Allergies No known active allergies Medications dextroamphetamin e-amphetamine XR (ADDERALL XR) 30 mg 24 hr capsule TAKE 1 CAPSULE BY MOUTH EVERY DAY IN THE MORNING FOR 30 DAYS 4 Active IODINE ORAL Take by mouth Active ferrous sulfate 325 mg (65 mg of elemental iron) tablet Take 1 tablet (325 mg total) by mouth daily Active guaiFENesin-dext romethorphan ER (MUCINEX DM) 600-30 mg tablet extended release 12 hr Take 1 tablet by mouth 2 times daily Active lysine 1,000 mg tablet Take 1,000 mg by mouth Active montelukast (SINGULAIR) 10 mg tablet Take 1 tablet (10 mg total) by mouth daily Active naproxen-pseudoe phedrine 220-120 mg tablet extended release 12 hr Take by mouth Active pantoprazole DR (PROTONIX) 40 mg EC tablet Take 1 tablet (40 mg total) by mouth daily Active spironolactone (ALDACTONE) 100 mg tablet Take 1 tablet (100 mg total) by mouth 2 (two) times a day Active cholecalciferol (VITAMIN D-3) 50,000 unit capsuleIndicatio ns:Vitamin D deficiency Take 1 capsule (50,000 Units total) by mouth every 14 (fourteen) days 6 capsule 3 4 03/19/20 25 Active Synthroid 125 mcg tabletIndication s: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 Take 1 tablet (125 mcg total) by mouth daily 90 tablet 3 4 03/19/20 25 Active tirzepatide, weight loss, (Zepbound) 7.5 mg/0.5 mL pen injector Inject 0.5 mL (7.5 mg total) under the skin every 7 days Active liothyronine (CYTOMEL) 5 mcg tabletIndication s: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 Take 1 tablet (5 mcg total) by mouth 2 (two) times a day 180 tablet 1 5 Active liothyronine (CYTOMEL) 5 mcg tabletIndication s: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 TAKE 1 TABLET TWICE A DAY 180 tablet 3 5 01/31/20 25 Discontinu ed(Reorder ) liothyronine (CYTOMEL) 5 mcg tabletIndication s: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 Take 1 tablet (5 mcg total) by mouth 2 (two) times a day 30 tablet 5 02/13/20 25 Discontinu ed(Reorder ) Active Problems Problem Noted Date Diagnosed Date [...] on file 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 Gender Identity Not on file Sexual Orientation [...] 11:13 AM CDT Height 170.2 cm (5' 7) 03/19/2024 11:13 AM CDT Body Mass Index 40.41 03/19/2024 11:13 AM CDT Plan of Treatment Health Maintenance Due Date Last Done Comments Breast Cancer Screening-Mammogram 1979 Colon Cancer Screening-Colonoscopy 1979 Depression Screening 1979 Hepatitis C Screening 1979 DTaP/Tdap/Td Vaccine (1 - Tdap) 1990 Hepatitis B Screening 1997 Regular Well Visit/Exam 18-64 1997 Pneumococcal vaccine <65 (1 of 2 - PCV) 1998 HPV Vaccines (1 - 3-dose SCDM series) 2006 Influenza Vaccine (#1) 2025 Insurance [employer] ACCESS Member Subscriber Plan / Payer (Ef fective 2018-Present) Name:Chanda Carrion Relation to Subscriber:Self Name:Chanda Carrion Payer ID:[id number] (NAIC) Type: ALTA Address: [facility] [address] [place] [id number] Care Teams Sql Architect Relationship Specialty Start Date End Date Fredy Fisher MD [address] [facility] [address] [place] [address] PCP - General Family Medicine 08/01/23
--- OUTSIDE RECORDS SUMMARY | 2025-02-26 07:35 | XMS_ITS | Patient Health Record ---
Author Organization [facility] [employer] Address [address] [facility] [address] [place] [address] Care Team Providers Care Bagman/Woman Name Role Phone Fredy Fisher MD Primary Care Provider UnavailRedd Platt Unavailable [phone] Allergies No Known Allergies Results Component Value Reference Range Notes UDT Reviewed date:04/18/2024 05:26:53 PM Interpretation: Performing Lab: Notes/Report: THC N 0 - 50 ng/ml Cocaine N 0 - 300 ng/ml Amphetamine P 0 - 1000 ng/ml Buprenorphine (BUP) N 0 - 10 ng/ml Secobarbital (Bar) N 0 - 300 ng/ml Oxazepam (BZO) N 0 - 300 ng/ml 8-jkdiyruvga-9,2-jpckmagp-8,3-diphenylpyrrolidine (CLAUDIA P) N 0 - 300 ng/ml Methamphetamine (MET) N 0 - 1000 ng/ml Methylenedioxymethamphetamine (MDMA) N 0 - 500 ng/ml Morphine (MOP 300/EFW5392) N 0 - 300 ng/ml Methadone (MTD) N 0 - 300 ng/ml Phencyclidine (PCP) N 0 - 25 ng/ml Nortriptyline (TCA) N 0 - 1000 ng/ml Oxycodone N 0 - 300 ng/ml x N 0 - 300 ng/ml UDT Reviewed date:12/13/2024 05:22:54 PM Interpretation: Performing Lab: Notes/Report: THC N 0 - 50 ng/ml Cocaine N 0 - 300 ng/ml Amphetamine P 0 - 1000 ng/ml Buprenorphine (BUP) N 0 - 10 ng/ml Secobarbital (Bar) N 0 - 300 ng/ml Oxazepam (BZO) N 0 - 300 ng/ml 0-olaxlsumfc-8,3-ttwcycza-4,3-diphenylpyrrolidine (CLAUDIA P) N 0 - 300 ng/ml Methamphetamine (MET) N 0 - 1000 ng/ml Methylenedioxymethamphetamine (MDMA) N 0 - 500 ng/ml Morphine (MOP 300/[id number]) N 0 - 300 ng/ml Methadone (MTD) N 0 - 300 ng/ml Phencyclidine (PCP) N 0 - 25 ng/ml Nortriptyline (TCA) N 0 - 1000 ng/ml Oxycodone N 0 - 300 ng/ml Reason For Referral No Information Medications Medication SIG (Take, Route, Frequency, Duration) Notes Start Date End Date Status Adderall XR 30 MG Capsule Extended Release 24 Hour 1 capsule in the morning Oral Once a day; Duration: 30 days do not fill until 03/07/2025 12/13/2024 Active Pantoprazole Sodium 40 MG Tablet Delayed Release Oral; Duration: 90 Days Active Spironolactone 100 MG Tablet Oral; Duration: 90 Days Active Amphetamine-Dextroamphe t ER 30 MG Capsule Extended Release 24 Hour 1 capsule in the morning Oral Once a day; Duration: 30 days 04/08/2024 Active Pantoprazole Sodium 40 MG Tablet Delayed Release Oral 09/06/2023 Active Adderall XR 30 MG Capsule Extended Release 24 Hour 1 capsule in the morning Oral Once a day; Duration: 30 days 12/13/2024 Active Cyclobenzaprine HCl 10 MG Tablet Oral 09/06/2023 Active Mucinex DM *Pick strength-form from [employer] for eRX* 09/06/2023 Active Lysine *Pick strength-form from [employer] for eRX* 09/06/2023 Active ProAir HFA 108 (90 Base) MCG/ACT Aerosol Solution Inhalation 09/06/2023 Active Adderall XR 30 MG Capsule Extended Release 24 Hour 1 capsule in the morning Orally Once a day; Duration: 30 days do not fill until 02/07/2025 12/13/2024 Active ZEPBOUND 5 MG/0.5 ML SUBCUTANEOUS PEN INJECTOR *Reorder from [employer] for eRx and Interaction Alerts* 09/06/2023 Active Adderall XR 30 MG Capsule Extended Release 24 Hour 1 capsule in the morning Orally Once a day; Duration: 30 days do not fill until 01/10/2025 12/13/2024 Active Liothyronine Sodium 5 MCG Tablet Oral 09/06/2023 Active Social History Tobacco Use: Social History Observation Description Date Details (start date - stop date) Unknown Sex Assigned At : Social History Observation Description Sex Assigned At Female Social History Miscellaneous: Social Info Question Answer Notes Advance Care Planning Are you your own decision-maker Yes Do you have Power of Content Analyst for Health or [facility]? No Drug/Alcohol: Social Info Question Answer Notes AUDIT-C (Standard) Did you have a drink containing alcohol in the past year? Yes Points 4 Interpretation Positive How often did you have six or more drinks on one occasion in the past year? 2 to 4 times a month (2 points) How many drinks did you have on a typical day when you were drinking in the past year? 1 or 2 drinks (0 point) How often did you have a drink containing alcohol in the past year? 2 to 4 times a month (2 points) Tobacco Use: Social Info Question Answer Notes Tobacco Control (Standard) Tobacco use: Uses tobacco i n other forms How long has it been since you last smoked? 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, predominantly inattentive type (F90.0) 09/06/19 24 Active confirmed Vital Signs Heart Rate 84 /min 12/13/2024 Height-cm 170.18 cm 12/13/2024 Blood pressure diastolic 79 mm Hg 12/13/2024 Weight-kg 97.43 kg 12/13/2024 Height 67.00 in 12/13/2024 Blood pressure systolic 111 mm Hg 12/13/2024 Weight 214.8 lbs 12/13/2024 BMI 33.64 kg/m2 12/13/2024 Encounters Encounter Location Date Provider Diagnosis [facility] [address] [place] [address] [address] 04/18/2024 Redd Aguillon Attention-deficit hyperactivity disorder, predominantly inattentive type F90.0 and Generalized anxiety disorder F41.1 [facility], [facility] [address] [place] [address] [place] [address] 08/23/2024 Redd Aguillon Attention-deficit hyperactivity disorder, predominantly inattentive type F90.0 and Generalized anxiety disorder F41.1 [facility], [facility] [address] [place] [address] [place] [address] 12/13/2024 Redd Aguillon Attention-deficit hyperactivity disorder, predominantly inattentive type F90.0 and Generalized anxiety disorder F41.1 [facility], [facility] [address] [place] [address] [place] [address] 08/12/2024 Redd Aguillon Attention-deficit hyperactivity disorder, predominantly inattentive type F90.0 [facility], [facility] [address] [place] [address] [place] [address] 03/04/[address] [facility], [facility] [address] [place] [address] [place] [address] 03/05/2024 Redd Aguillon Attention-deficit hyperactivity disorder, predominantly inattentive type F90.0 [facility], [facility] [address] [place] [address] [place] [address] 04/03/[address] [facility], [facility] [address] [place] [address] [place] [address] 04/08/[address] [facility], [facility] [address] [place] [address] [place] [address] 04/08/2024 Redd Aguillon Attention-deficit hyperactivity disorder, predominantly inattentive type F90.0 [facility], [facility] [address] [place] [address] [place] [address] 08/09/[address] [facility], [facility] [address] [place] [address] [place] [address] 08/09/[address] [facility] [address] [place] [address] [place] [address] 08/13/[address] [facility] [address] [place] [address] [place] [address] 08/13/2024 [facility] [employer] [facility] [address] [place] [address] [place] [address] 08/13/[address] [facility] [address] [place] [address] [place] [address] 08/23/[address] [facility] [address] [place] [address] [place] [address] 08/23/[address] [facility] [address] [place] [address] [place] [address] 08/27/2024 Redd Aguillon Assessments Encounter Date Diagnosis (ICD Code) Assessment Notes Treatment Notes Treatment Clinical Notes Section Notes 03/05/2024 Attention-defici t hyperactivity disorder, predominantly inattentive type (ICD-10 - F90.0) 04/08/2024 Attention-defici t hyperactivity disorder, predominantly inattentive type (ICD-10 - F90.0) 04/18/2024 Attention-defici t hyperactivity disorder, predominantly inattentive type (ICD-10 - [...] prescription for Adderall XR 30 mg to [facility] - Scheduled [...] and consider referral to therapy if needed. 08/12/2024 Attention-defici t hyperactivity disorder, predominantly inattentive type (ICD-10 - F90.0) 08/23/2024 Attention-defici t hyperactivity disorder, predominantly inattentive type (ICD-10 - F90.0) may add magnesium glycinate 200mg- 400mg daily for adhd symptoms 12/13/2024 Generalized anxiety disorder (ICD-10 - F41.1) 12/13/2024 Attention-defici t hyperactivity disorder, predominantly inattentive type (ICD-10 - F90.0) may add magnesium glycinate 200mg- 400mg daily for adhd symptoms 08/23/2024 Generalized anxiety disorder (ICD-10 - F41.1) 04/18/2024 Generalized anxiety disorder (ICD-10 - F41.1) [...] prescription for Adderall XR 30 mg to [facility] - Scheduled [...] and consider referral to therapy if needed. 12/13/2024 Nirav Pace, a patient with a history of ADHD and recent significant weight loss, presents for medication management and follow-up. Attention Deficit Hyperactivity Disorder (ADHD) Assessment: Patient reports continued efficacy of Adderall XR 30 mg for ADHD symptoms. She notes a significant improvement in focus, concentration, and energy when taking the medication. The patient states she can't go without it and notices a huge difference when on the medication, indicating good symptom control and functional improvement. Plan: - Continue Adderall XR - Prescribe 4 refills of Adderall XR - Next refill due on 01/10/2025 - Subsequent refills: 02/07/2025, 03/07/2025 - Follow-up: Patient should have enough medication through early April Weight Management Assessment: Patient reports significant weight loss of almost 100 pounds. She is using a Zup band (likely referring to a gastric band or similar weight loss device) and is currently on a 10 mg dose. The patient expresses satisfaction with her current progress, stating she is taking my time and has been using the device for approximately 1.5 years. Plan: - Continue current Zup band management at 10 mg dose - Monitor for side effects Thyroid Management Assessment: Patient mentions recent increase in T3 medication dosage. This adjustment may be impacting her overall symptom presentation and energy levels. Plan: - Continue current T3 medication regimen - Monitor for effects of recent dose increase Mood and Anxiety Assessment: Patient denies current depression. She reports occasional, mild anxiety that comes and goes, but overall describes her mood as pretty balanced right now. Plan: - Continue current management - Monitor for changes in mood or anxiety symptoms the note is transcribed using speech recognition software. It is a reflection of a visit with the patient. It might have some inaccuracy, including medication names and transcribing errors, though efforts have been made to correct them. Plan Of Treatment Next Appt Details Provider Name:Redd meek, 04/04/2025 08:45:00 AM, [address], [place], [address], Insurance Providers Payer Name Payer Address Payer Phone Subscriber Number Group Number Insured Name Patient Relationship to Insured Coverage Start Date Coverage End Date [employer] [address] [place] [address] [id number] Sybil PACE ALEXIS Self - patient is the insured Medical (General) History Medical History History ICD Code Problems: Attention deficit hyperactivity disorder, predominantly inattentive type Generalized anxiety disorder Sky thyroiditis , Surgical History Surgery Date(Month/Year) Sinus surgery 07/06/2013 Tonsilectomy/adenoids 11/03/2000 Hysterectomy (42365) 12/04/2011 Bilateral knee surgery 2013 abdominal hysterectomy"
[2025-02-26 07:39] LABS: Hematocrit 42.1 % (35.0-49.0); Hemoglobin 14.0 g/dL (12.0-15.0); Mean Corpuscular HGB Conc 33.3 g/dL (32-36); Mean Corpuscular Hemoglobin 31.5 pg (27.0-31.0); Mean Corpuscular Volume 94.6 fL (78.0-102.0); Platelet Count Result 217 K/mm3 (150-420); Red Blood Count 4.45 M/mm3 (4.20-5.40); White Blood Count 3.9 K/mm3 (4.8-10.8)
[2025-02-26 08:24] LABS: Alanine Aminotransferase 17 U/L (6-35); Albumin Level 3.9 g/dL (3.5-5.1); Alkaline Phosphatase 45 U/L (38-126); Anion Gap 6 mmol/L (4-12); Aspartate Amino Transferase 20 U/L (14-36); Bilirubin,Total 0.7 mg/dL (0.2-1.3); Blood Urea Nitrogen 21 mg/dL (7-17); Calcium 9.5 mg/dL (8.4-10.2); Carbon Dioxide 30 mmol/L (22-30); Chloride 104 mmol/L (98-107); Cholesterol 152 mg/dL (0-200); Estimated Glomerular Filt Rate > 60; Glucose 93 mg/dL (65-110); HDL Direct 53 mg/dL; Osmolality Calculated 293 mOsm/kg (285-295); Potassium 4.6 mmol/L (3.4-5.0); Sodium 140 mmol/L (137-145); Total Protein 6.9 g/dL (6.3-8.2); Triglycerides 76 mg/dL (<150)
[2025-02-26 08:44] LABS: Free T3 3.32 pg/mL (2.18-3.98)
[2025-02-26 08:57] LABS: Thyroid Stimulating Hormone < 0.015 uIU/mL (0.465-4.680)
[2025-02-26 10:28] LABS: Free T4 Free Thyroxine 1.07 ng/dL (0.78-2.19)
== END 2025-02-26 07:23 | disposition home or self-care (01) ==
PROVIDERS: PCP Family Medicine; Visit Provider Family Medicine
DX: Z00.00 Encounter for general adult medical examination without abnormal findings (principal); R73.03 Prediabetes; E03.9 Hypothyroidism, unspecified; E78.5 Hyperlipidemia, unspecified; E06.3 Autoimmune thyroiditis; J30.2 Other seasonal allergic rhinitis
CPT/HCPCS: 36415; 80053; 80061; 82306; 84439; 84443; 84481; 85027